=== PATIENT | female | born 1980 | race Caucasian/White ===

== ENCOUNTER 2019-03-11 22:30 | Emergency (ER) | payer OTHER, MEDICAID, SELFPAY ==
[2019-03-11 22:35] VITALS: BP 139/85; PULSE 78; RESP 16; TEMP 37; O2SAT 99; BMI 18.6
--- NOTE | 2019-03-11 22:50 | ED.GENADULT ---
HPI - General Adult General Chief complaint: Urogenital-Female Stated complaint: lower abdominal pain, trouble urinating Time Seen by Provider: 03/11/19 22:34 Source: patient Mode of arrival: Family Vehicle Limitations: no limitations History of Present Illness HPI narrative: 38-year-old female here for evaluation of bilateral lower abdominal pain. States that this has been going on for the past day. She also has had dysuria, urinary frequency, hesitancy and urgency for the past several weeks. No fevers. Has had urinary tract infections in the past. Finished her menstrual cycle 1 week ago. No back pain. No nausea vomiting. had an inguinal hernia abdominal hernia repaired as a child. Related Data Previous Rx's Medication Instructions Recorded ciprofloxacin HCl 250 mg PO BID 3 Days #6 tab 03/11/19 phenazopyridine [Pyridium] 100 mg PO TID PRN #6 tab 03/11/19 Allergies Allergy/AdvReac Type Severity Reaction Status Date / Time sulfamethoxazole Allergy Verified 03/11/19 22:43 [From Bactrim] trimethoprim [From Bactrim] Allergy Verified 03/11/19 22:43 cillians Allergy Uncoded 03/11/19 22:43 Review of Systems Constitutional Constitutional: Denies fever(s) and Denies headache(s) ENT Ears, Nose, Mouth, and Throat: Denies headache(s) Cardiovascular Cardiovascular: Denies chest pain and Denies dyspnea Respiratory Respiratory: Denies dyspnea Gastrointestinal Gastrointestinal: Reports abdominal pain, Denies nausea and Denies vomiting Genitourinary Genitourinary: Reports dysuria, Reports urinary hesitancy, Reports urinary urgency and Denies vaginal discharge Musculoskeletal Musculoskeletal: Denies back pain, Denies myalgias and Denies arthralgias Integumentary/Breasts Skin/Breast: Denies lesions and Denies rash Neurologic Neurologic: Denies behavioral changes and Denies headache(s) Psychiatric Psychiatric: Denies behavioral changes Hematologic/Lymphatic Hematologic/Lymphatic: Denies easy bleeding and Denies easy bruising [facility] Surgical History History of inguinal hernia repair (Acute) History of umbilical hernia repair (Acute) Social History Smoking Status: Current every day smoker Social History Smoking Status: Current every day smoker Exam Initial Vital Signs Initial Vital Signs: Vital Signs Temperature 98.6 F 03/11/19 22:35 Pulse Rate 78 03/11/19 22:35 Respiratory Rate 16 03/11/19 22:35 Blood Pressure 139/85 03/11/19 22:35 Pulse Oximetry 99 03/11/19 22:35 Const General: cooperative, comfortable, well developed and well groomed Orientation: alert, awake and oriented x3 Resp Effort & Inspection: normal respiratory effort Auscultation: clear to auscultation bilaterally Cardio Rate: regular rate Rhythm: regular rhythm GI Inspection: non-distended Palpation: soft, No firm and No tender Other: Lower adnexa tenderness Back/Spine/Pelvis Back: No CVA tenderness Skin Lesions: no lesions Rashes: no rashes Neuro General: alert and awake Cognition: normal cognition Speech: speech normal Extrem General: normal to inspection and capillary refill normal Psych Appearance: grossly normal and well kempt Course Orders Ordered: ED Orders 03/11/19 22:33 Urine Culture Stat Urine Microscopic Stat Discontinued Medications Ciprofloxacin (Cipro) 250 mg PO NOW ONE Stop: 03/11/19 23:00 Last Admin: 03/11/19 23:04 Dose: Not Given Documented by: RJ Ciprofloxacin (Cipro) 250 mg PO NOW ONE Stop: 03/11/19 23:04 Last Admin: 03/11/19 23:07 Dose: 250 mg Documented by: GURPREET Phenazopyridine HCl (Pyridium) 100 mg PO NOW ONE Stop: 03/11/19 23:00 Last Admin: 03/11/19 23:07 Dose: 100 mg Documented by: GURPREET Vital Signs Vital signs: Vital Signs - 8 hr 03/11/19 22:35 Temperature 98.6 F Pulse Rate 78 Respiratory Rate 16 Blood Pressure 139/85 Pulse Oximetry 99 Medical Decision Making Lab Data Lab results reviewed: Yes I reviewed the patient's lab results. Labs: Lab Results 03/11/19 Range/Units 22:33 Urine RBC 1-5/hpf (0-5/HPF) Urine WBC 5-10/hpf H (0-5/HPF) Ur Squamous Epith Cells 1-5 /hpf (0-5/HPF) Urine Bacteria Moderate (10-30) H (None) Ur Culture Indicated? Specimen cultured Point of Care Testing Test Results Negative Urine Dip Bedside Urine Glucose 100 mg/dl Bedside Urine Bilirubin - Negative Bedside Urine Ketone - Negative Urine Specific [place] 1.025 Bedside Urine Occult Blood +/- Bedside Urine pH 6.0 Bedside Urine Protein +/- 15 Bedside Urine Urobilinogen +/- 1mg Bedside Urine Nitrite - Negative Bedside Urine Leukocytes + 70 Esterase Point of care testing: Point of Care Testing Test Results Negative Urine Dip Bedside Urine Glucose 100 mg/dl Bedside Urine Bilirubin - Negative Bedside Urine Ketone - Negative Urine Specific [place] 1.025 Bedside Urine Occult Blood +/- Bedside Urine pH 6.0 Bedside Urine Protein +/- 15 Bedside Urine Urobilinogen +/- 1mg Bedside Urine Nitrite - Negative Bedside Urine Leukocytes + 70 Esterase MDM Narrative Medical decision making narrative: Patient's history and physical exam is consistent with a urinary tract infection. She has no findings that are concerning for pyelonephritis. test is negative. urine culture was pending at the time of discharge the patient was informed of this. She was given a dose of antibiotics here in the emergency department will send home with prescription for the remainder. She is given return precautions and follow-up instructions. She expressed understanding and agreement with plan. Discharge Plan Departure Patient Disposition: Home Clinical Impression: Urinary tract infection Qualifiers: Urinary tract infection type: acute cystitis Hematuria presence: without hematuria Qualified Code(s): N30.00 - Acute cystitis without hematuria Discharge Date/Time: 03/11/19 23:15 Instructions: DI for Urinary Tract Infection (UTI) Activity Restrictions/Additional Instructions: Take the antibiotics as directed. Continue to increase your fluid intake. A urine culture was pending at the time of your discharge. If we need to change antibiotics based on the results of this culture we will call you to do so. Return to the emergency department for any new or worsening symptoms Prescriptions: New ciprofloxacin HCl 250 mg tablet 250 mg PO BID 3 Days Qty: 6 RF: 0 phenazopyridine [Pyridium] 100 mg tablet 100 mg PO TID PRN (Reason: pain) Qty: 6 RF: 0
[2019-03-11 22:52] LABS: Bacteria Urine Moderate (10-30); Culture Indicated Urine Specimen Cultured; RBC Urine 1-5/HPF (0-5/HPF); Squamous Epithelial Cell Urine 1-5 /HPF (0-5/HPF); WBC Urine 5-10/HPF (0-5/HPF)
[2019-03-11] MEDS: CIPROFLOXACIN 500 MG TABLET 250 MG PO (23:07)
[2019-03-11] MEDS: PHENAZOPYRIDINE 100 MG TABLET PO (23:07)
== END 2019-03-11 23:15 | disposition home or self-care (01) ==
PROVIDERS: Emergency Provider Emergency Medicine
DX: N30.00 Acute cystitis without hematuria (principal)
CPT/HCPCS: 81003; 81015; 81025; 87077; 87086; 87186; 99282; 99283

== ENCOUNTER 2019-03-20 21:44 | Emergency (ER) | payer OTHER, MEDICAID, SELFPAY ==
[2019-03-20 22:04] VITALS: BP 115/78; PULSE 90; RESP 17; TEMP 36.5; O2SAT 99; BMI 19.0
--- NOTE | 2019-03-20 22:18 | ED.FEMALEGU ---
HPI - Female Genitourinary General Chief complaint: Urogenital-Female Stated complaint: UTI Time Seen by Provider: 03/20/19 21:56 Source: patient Mode of arrival: Ambulatory Limitations: no limitations History of Present Illness HPI Narrative: Patient is a 38 year old female presenting with urinary frequency. She was seen and evaluated here on 03/11/2019 diagnosed with UTI she was placed on 5 or 6 days of Cipro. Urine did grow E coli sensitive to Cipro. She states that her abdominal cramping has improved however she continues to have urinary frequency only at night. She denies any fevers chills or back pain. No nausea or vomiting. MD Complaint: dysuria Related Data Previous Rx's Medication Instructions Recorded ciprofloxacin HCl 250 mg PO BID 3 Days #6 tab 03/11/19 phenazopyridine [Pyridium] 100 mg PO TID PRN #6 tab 03/11/19 nitrofurantoin monohyd/m-cryst 100 mg PO Q12H 3 Days #6 cap 03/20/19 [Macrobid] Allergies Allergy/AdvReac Type Severity Reaction Status Date / Time sulfamethoxazole Allergy Verified 03/11/19 22:43 [From Bactrim] trimethoprim [From Bactrim] Allergy Verified 03/11/19 22:43 cillians Allergy Uncoded 03/11/19 22:43 Review of Systems Review of Systems ROS Unobtainable: All systems reviewed & are unremarkable except as noted in HPI and below Constitutional Constitutional: Denies chills, Denies fever(s), Denies lethargy and Denies weakness Eyes Eyes: Denies change in vision, Denies eye discharge, Denies irritation and Denies loss of vision ENT Ears, Nose, Mouth, and Throat: Denies change in voice, Denies neck pain and Denies sore throat Cardiovascular Cardiovascular: Denies dyspnea and Denies dyspnea on exertion Respiratory Respiratory: Denies cough, Denies dyspnea, Denies dyspnea on exertion and Denies wheezing Gastrointestinal Gastrointestinal: Denies abdominal pain, Denies change in bowel habits, Denies diarrhea, Denies nausea and Denies vomiting Genitourinary Genitourinary: Reports as per HPI Musculoskeletal Musculoskeletal: Denies neck pain Integumentary/Breasts Skin/Breast: Denies pruritus, Denies erythema, Denies rash and Denies wounds Neurologic Neurologic: Denies loss of vision and Denies weakness Allergic/Immunologic Allergic/Immunologic: Denies wheezing Patient History Social History Smoking Status: Current every day smoker alcohol intake frequency: 0-2 drinks per day Substance Use Type: does not use Exam Initial Vital Signs Initial Vital Signs: Vital Signs Temperature 97.7 F 03/20/19 22:04 Pulse Rate 90 03/20/19 22:04 Respiratory Rate 17 03/20/19 22:04 Blood Pressure 115/78 03/20/19 22:04 Pulse Oximetry 99 03/20/19 22:04 GENERAL: Well-appearing, well-nourished and in no acute distress. HEENT: Head atraumatic,EOMI, pupils reactive, face symmetric, moist mucous membranes CARDIOVASCULAR: Regular rate and rhythm without murmurs, rubs or gallops. RESPIRATORY: Breath sounds equal bilaterally, no wheezes rales or rhonchi. ABDOMEN: Soft, nontender. Normoactive bowel sounds all 4 quadrants. No guarding or rebound. : No flank pain EXTREMITIES: Normal range of motion, no clubbing or edema. Neurovascularly intact NEUROLOGICAL: Alert and oriented x4.Normal gait and speech. SKIN: Warm, dry, no laceration, no petechiae, no rashes or lesions. Course Orders Ordered: ED Orders 03/20/19 21:50 Urine Microscopic Stat Discontinued Medications Nitrofurantoin Macrocrystals (Macrobid 100mg Prepack) 1 bottle MISC SEEINSTR ONE Stop: 03/20/19 22:27 Last Admin: 03/20/19 22:31 Dose: 1 bottle Documented by: CPRUITT Vital Signs Vital signs: Vital Signs - 8 hr 03/20/19 22:04 03/20/19 22:31 Temperature 97.7 F Pulse Rate 90 90 Respiratory Rate 17 16 Blood Pressure 115/78 115/78 Pulse Oximetry 99 99 MDM - Female Genitourinary Lab Data Attestation: I reviewed the patient's lab results. Labs: Lab Results 03/20/19 Range/Units 21:50 Urine RBC 0-1/hpf (0-5/HPF) Urine WBC 0-1/hpf (0-5/HPF) Ur Squamous Epith Cells 5-10 /hpf H (0-5/HPF) Urine Bacteria Moderate (10-30) H (None) Ur Culture Indicated? Cult not indicated Point of Care Testing Test Results Negative Urine Dip Urine Specific [place] 1.015 Bedside Urine Occult Blood +/- Bedside Urine pH 7.5 Bedside Urine Protein +/- 15 Bedside Urine Urobilinogen - Negative Bedside Urine Nitrite - Negative Bedside Urine Leukocytes - Negative Esterase MDM Narrative Medical decision making narrative: Patient is still having urinary urgency and frequency. However at nighttime. Cipro was an appropriate medication for her. Will give her 3 days of Macrobid. I discussed with her this does not help she may require further testing with valuation. Discharge Plan Departure Patient Disposition: Home Clinical Impression: Urinary tract infection Qualifiers: Urinary tract infection type: acute cystitis Hematuria presence: with hematuria Qualified Code(s): N30.01 - Acute cystitis with hematuria Discharge Date/Time: 03/20/19 22:32 Instructions: DI for Urinary Tract Infection (UTI) Activity Restrictions/Additional Instructions: *You have been diagnosed with UTI *What to do: Urine today does not show any gross infection however you still are symptomatic *Continue to take medications as directed Macrobid 100 mg twice a day for 3 days ONLY *Follow up with your primary care provider in 2-3 days *Return to ER if you should have increasing abdominal pain urinary frequency nausea vomiting [or] any new, worsening or concerning symptoms Prescriptions: New nitrofurantoin monohyd/m-cryst [Macrobid] 100 mg capsule 100 mg PO Q12H 3 Days Qty: 6 RF: 0 No Action ciprofloxacin HCl 250 mg tablet 250 mg PO BID 3 Days Qty: 6 RF: 0 phenazopyridine [Pyridium] 100 mg tablet 100 mg PO TID PRN (Reason: pain) Qty: 6 RF: 0 Referrals: [facility] [Outside]
[2019-03-20 22:19] LABS: Bacteria Urine Moderate (10-30); Culture Indicated Urine Cult Not Indicated; RBC Urine 0-1/HPF (0-5/HPF); Squamous Epithelial Cell Urine 5-10 /HPF (0-5/HPF); WBC Urine 0-1/HPF (0-5/HPF)
[2019-03-20 22:31] VITALS: BP 115/78; PULSE 90; RESP 16; O2SAT 99
[2019-03-20] MEDS: NITROFURANTOIN 100MG PREPACK 1 BOTTLE MISC (22:31)
== END 2019-03-20 22:32 | disposition home or self-care (01) ==
PROVIDERS: Emergency Provider Emergency Medicine
DX: N30.01 Acute cystitis with hematuria (principal)
CPT/HCPCS: 81003; 81015; 81025; 99282; 99283

== ENCOUNTER → 2019-05-03 14:22 | Outpatient (CLI) | payer OTHER, MEDICAID, SELFPAY | PROVIDERS: PCP Nurse Practitioner Family; Visit Provider Physician Assistant | DX: N39.0 Urinary tract infection, site not specified (principal) | CPT/HCPCS: 87086 ==

== ENCOUNTER → 2020-01-18 14:29 | Outpatient (CLI) | payer OTHER, MEDICAID, SELFPAY ==
[2020-01-19 14:12] LABS: COVID19 Sendout Not Detected (Not Detected)
== END ==
PROVIDERS: PCP Nurse Practitioner Family; Visit Provider Physician Assistant
DX: Z11.59 Encounter for screening for other viral diseases (principal)
CPT/HCPCS: 87635

== ENCOUNTER → 2022-12-16 18:40 | Outpatient (CLI) | payer MEDICAID, SELFPAY | PROVIDERS: PCP Nurse Practitioner; Visit Provider Physician Assistant | DX: R10.30 Lower abdominal pain, unspecified (principal) | CPT/HCPCS: 81002; 87086 ==

== ENCOUNTER → 2022-12-22 11:02 | Outpatient (CLI) | payer MEDICAID, SELFPAY ==
--- NOTE | 2022-12-22 11:03 | DI.US.S_ITS ---
PROCEDURE: US ABDOMEN LIMITED INDICATIONS: RIGHT GROIN PAIN - EVALUATE FOR RIGHT HERNIA TECHNIQUE: Real-time focused scanning was performed of the abdomen, with image documentation. COMPARISON: None. FINDINGS: Multiple grayscale images of the right inguinal region were acquired over the patient directed area of concern. No focal mass lesion seen. No abnormal fluid collection. No adenopathy. No evidence for inguinal hernias. IMPRESSION: No sonographic abnormality identified in the right inguinal region to explain patient's pain. Dictated by: Larry Malloy M.D. on 12/22/2022 at 14:12 Approved by: Larry Mlaloy M.D. on 12/22/2022 at 14:13
== END ==
PROVIDERS: PCP Nurse Practitioner; Referring Provider Physician Assistant; Visit Provider Physician Assistant
DX: R10.31 Right lower quadrant pain (principal)
CPT/HCPCS: 76705

== ENCOUNTER 2023-01-08 21:10 | Emergency (ER) | payer OTHER, MEDICAID, SELFPAY ==
[2023-01-08 21:22] VITALS: BP 122/77; PULSE 94; RESP 18; TEMP 36.8; O2SAT 96; BMI 27.4
--- NOTE | 2023-01-08 21:34 | DI.RAD.S_ITS ---
PROCEDURE: XR HIP W PEL IF DONE RT 2V INDICATIONS: pain and popping TECHNIQUE: AP pelvis with AP and lateral views of the right hip. COMPARISON: None. FINDINGS: Bones: No fractures or dislocations. Pelvic ring appears intact. No suspicious bony lesions. Soft tissues: The visualized bowel gas pattern is normal. No suspicious soft tissue calcifications. There are bilateral tubular densities projecting over the pelvis. IMPRESSION: 1. No fracture or dislocation. Dictated by: Colten Kent M.D. on 01/09/2023 at 0:27 Approved by: Colten Kent M.D. on 01/09/2023 at 0:30
[2023-01-09 00:49] VITALS: BP 103/67; PULSE 80; RESP 16; O2SAT 99
--- NOTE | 2023-01-09 00:52 | ED_ITS ---
HPI - Extremity Injury (Lower) General Chief Complaint: Extremity Injury, Lower Stated Complaint: Groin pain Time Seen by Provider: 01/09/23 00:52 Source: patient Mode of arrival: Ambulatory History of Present Illness HPI Narrative: Patient healthy 42-year-old female who presents today with ongoing right groin pain. She reports that she some sort of injury and pain a few weeks ago she thought it was related to her sciatica. It eventually went away however at work this week having increasing pain over last couple of days. It is anteriorly along her inguinal ligament. She denies any change in bladder bowel habits. She has no flank pain no CVA tenderness it definitely hurts to bear weight. She is been taking ibuprofen with minimal relief. Related Data Home Medications Medication Instructions Recorded Confirmed amitriptyline 25 mg tablet 25 mg PO BEDTIME 06/13/19 11/09/22 hydroxyzine HCl 25 mg tablet 25 mg PO BEDTIME 06/13/19 11/09/22 tamsulosin 0.4 mg capsule (Flomax) 0.4 mg PO DAILY 06/13/19 11/09/22 Previous Rx's Medication Instructions Recorded cyclobenzaprine 5 mg tablet 5 mg PO TID PRN muscle spasm #15 12/16/22 tabs fluoxetine 20 mg tablet 20 mg PO DAILY #90 tabs 12/23/22 hydrocodone 5 mg-acetaminophen 325 1 tab PO Q6H PRN pain #10 tabs 01/09/23 mg tablet Allergies Allergy/AdvReac Type Severity Reaction Status Date / Time sulfamethoxazole Allergy Verified 11/09/22 13:35 [From Bactrim] trimethoprim [From Bactrim] Allergy Verified 11/09/22 13:35 cillians Allergy Uncoded 11/09/22 13:35 Review of Systems Review of Systems ROS Unobtainable: All systems reviewed & are unremarkable except as noted in HPI and below Patient History Medical History Anxiety Bilateral knee pain Cervical spine disease Chronic back pain COVID-19 Depression Encounter for routine gynecological examination (06/05/22) Encounter for wellness examination in adult (11/07/20) Fractures Headache History of urinary incontinence Interstitial cystitis (2019) Ovarian cyst Psoriasis Seizure disorder (2008) Surgical History Anesthesia History of inguinal hernia repair History of neck surgery (~2010) History of umbilical hernia repair [place] teeth extracted Family History Grandfather History of heart disease Social History Smoking Status: Former smoker Smoking Status: Former smoker alcohol intake frequency: other Substance Use Type: does not use Exam Initial Vital Signs Initial Vital Signs: Vital Signs Temperature 98.2 F 01/08/23 21:22 Pulse Rate 94 H 01/08/23 21:22 Respiratory Rate 18 01/08/23 21:22 Blood Pressure 122/77 01/08/23 21:22 Pulse Oximetry 96 01/08/23 21:22 Oxygen Delivery Method Room Air 01/08/23 21:22 GENERAL: Well-appearing, well-nourished and in no acute distress. CARDIOVASCULAR: peripheral pulses in tact, cap refill <2 sec RESPIRATORY: No respiratory distress, speaks in full sentences without difficulty ABDOMEN: Soft, nontender, no guarding or rebound : No CVA tenderness EXTREMITIES: Normal range of motion, no clubbing or edema. Neurovascularly intact Hip is nontender with flexion extension internal external rotation distal pedal pulse intact. Tender along inguinal ligament no inguinal hernia is appreciated NEUROLOGICAL: Cranial nerves II through XII grossly intact. Normal gait and speech. SKIN: Warm, dry, no petechiae, no rashes or lesions. Course Orders Ordered: ED Orders 01/08/23 21:34 XR hip w pel if done RT 2V Stat Discontinued Medications Hydrocodone Bitart/Acetaminophen (Hydrocodone/Acet 5/325 Prepack) 1 bottle MISC SEEINSTR ONE Stop: 01/09/23 00:59 Last Admin: 01/09/23 01:08 Dose: Not Given Documented By: AP Ketorolac Tromethamine (Ketorolac 30 Mg/Ml Vial) 30 mg IM NOW ONE Stop: 01/09/23 00:59 Last Admin: 01/09/23 01:05 Dose: 30 mg Documented By: AP Vital Signs Vital signs: Vital Signs - 8 hr 01/09/23 00:49 Pulse Rate 80 Respiratory Rate 16 Blood Pressure 103/67 Pulse Oximetry 99 Oxygen Delivery Method Room Air MDM - Extremity Injury (Lower) Imaging Data Extremity x-ray #1: Radiologist's Impression: PROCEDURE:? XR HIP W PEL IF DONE RT 2V ? INDICATIONS:? pain and popping ? TECHNIQUE:? AP pelvis with AP and lateral views of the right hip. ? COMPARISON:? None. ? FINDINGS:? ? Bones:? No fractures or dislocations.? Pelvic ring appears intact.? No suspicious bony lesions.? ? Soft tissues:? The visualized bowel gas pattern is normal.? No suspicious soft tissue calcifications.? There are bilateral tubular densities projecting over the pelvis. ? ? IMPRESSION:? ? 1. No fracture or dislocation. ? ? ? Dictated by: Colten Kent M.D. on 01/09/2023 at 0:27 ? ? MDM Narrative Medical decision making narrative: Patient 42-year-old female presents today with ongoing right groin pain. She previously had pain around December 22 where she was seen evaluated walk-in clinic she would an ultrasound which did not show any abnormality. Continues to have pain I suspect a right inguinal ligament strain. No signs or symptoms of nephrolithiasis no evidence of hernia. 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 Patient is on Suboxone she was previously on multiple pain medications for neck problems. Initially [place] was ordered however not given Discharge Plan Departure Patient Disposition: Home Clinical Impression: Strain of muscle of right groin region Instructions: DI for Groin Strain Activity Restrictions/Additional Instructions: *You have been diagnosed with right groin strain *What to do: At this time rest ice heat as needed. This can take a couple weeks to heal. If still having difficulty with healing may require outpatient MRI or physical therapy. *Continue to take medications as directed Ibuprofen 600 mg every 6 hours if needed for [id number] pain Tylenol 1000 mg every 6 hours if needed for [id number] pain *Follow up with your primary care provider in 2-3 days or call [phone] *Return to ER if you should have increasing pain numbness tingling weakness or any new, worsening or concerning symptoms Prescriptions: New hydrocodone-acetaminophen 5-325 mg tablet 1 tab PO Q6H PRN (Reason: pain) Qty: 10 0RF No Action cyclobenzaprine 5 mg tablet 5 mg PO TID PRN (Reason: muscle spasm) Qty: 15 0RF Rx Instructions: May cause drowsiness fluoxetine 20 mg tablet 20 mg PO DAILY Qty: 90 3RF Rx Instructions: Take 1 tab in the morning daily tamsulosin [Flomax] 0.4 mg capsule 0.4 mg PO DAILY hydroxyzine HCl 25 mg tablet 25 mg PO BEDTIME amitriptyline 25 mg tablet 25 mg PO BEDTIME Referrals: Cyndee Mujica ARNP [Primary Care Provider] - Stand Alone Forms: Patient Portal/API
[2023-01-09] MEDS: KETOROLAC 30 MG/ML VIAL IM (01:05)
== END 2023-01-09 01:20 | disposition home or self-care (01) ==
PROVIDERS: Emergency Provider Emergency Medicine; PCP Nurse Practitioner
DX: S39.011A Strain of muscle, fascia and tendon of abdomen, initial encounter (principal); X58.XXXA Exposure to other specified factors, initial encounter
CPT/HCPCS: 73502; 96372; 99283; J1885

== ENCOUNTER → 2023-02-03 10:29 | Outpatient (CLI) | payer OTHER, MEDICAID, SELFPAY ==
--- NOTE | 2023-02-03 10:30 | DI.CT.S_ITS ---
PROCEDURE: CT PELVIS W CON INDICATIONS: Right side groin pain TECHNIQUE: After the administration of intravenous contrast, 5 mm thick sections acquired from the iliac crests to the symphysis. 5 mm coronal and sagittal reformats were acquired. For radiation dose reduction, the following was used: automated exposure control, adjustment of mA and/or kV according to patient size. COMPARISON: [facility], CR, XR HIP W PEL IF DONE RT 2V, 01/08/2023, 23:05. FINDINGS: Image quality: Excellent. Peritoneum and bowel: Bowel loops demonstrate normal wall thickness and caliber. No free fluid or air. Fecal stasis throughout the colon is seen. Genitourinary: Partially distended urinary bladder shows no gross bladder wall abnormality. No calcified bladder stones. Nodes and vessels: No iliac, pelvic, or inguinal adenopathy by size criteria. Iliac vessels demonstrate normal size and enhancement. Bones: There is subacute appearing fractures involving right superior and inferior pubic ramus with minimal displacement at fracture sites. Oblique fracture involving right sacrum is also seen with minimal displacement at fracture site. No suspicious bony lesions. No evidence of avascular necrosis of femoral head. Miscellaneous: No inguinal hernias. IMPRESSION: 1. Subacute appearing minimally displaced right superior and inferior pubic ramus fractures. 2. Minimally displaced right sacral fracture. 3. No other fracture or dislocation. No evidence of avascular necrosis of femoral heads. 4. No gross pelvic soft tissue abnormalities. No pelvic free fluid or free air. Findings were reported to referring clinician via phone call at noon on 02/03/2023. Dictated by: Sanchez Allison M.D. on 02/03/2023 at 11:48 Approved by: Sanchez Allison M.D. on 02/03/2023 at 12:01
== END ==
PROVIDERS: PCP Nurse Practitioner; Referring Provider Pediatrics; Visit Provider Pediatrics
DX: S32.10XA Unspecified fracture of sacrum, initial encounter for closed fracture (principal); S32.591A Other specified fracture of right pubis, initial encounter for closed fracture; S76.211A Strain of adductor muscle, fascia and tendon of right thigh, initial encounter
CPT/HCPCS: 72193; Q9967

== ENCOUNTER → 2023-09-28 11:23 | Outpatient (CLI) | payer OTHER, MEDICAID, SELFPAY | PROVIDERS: Family Provider Nurse Practitioner; PCP Nurse Practitioner; Visit Provider Physician Assistant Surgical | DX: B99.9 Unspecified infectious disease (principal) | CPT/HCPCS: 87070; 87075; 87077; 87147; 87186; 87205 ==

== ENCOUNTER 2023-10-01 17:56 | Emergency (ER) | payer OTHER, MEDICAID, SELFPAY ==
[2023-10-01 17:58] VITALS: BP 138/77; PULSE 108; RESP 16; TEMP 37.2; O2SAT 97; BMI 27.1
[2023-10-01 18:37] VITALS: PULSE 111; O2SAT 100
--- NOTE | 2023-10-01 19:43 | ED_ITS ---
HPI - Recheck/Abnormal Lab/Rx General Chief Complaint: Recheck/Abnormal Lab/Rx Stated Complaint: poss infection after surgery, recheck lab Time Seen by Provider: 10/01/23 19:43 Source: patient Mode of arrival: Ambulatory History of Present Illness HPI narrative: Patient is a 43-year-old female who had pelvic surgery 08/27/[address] [facility] presented to the walk-in clinic on September 27 for staple removal. Apparently the staple was stuck there was significant drainage. There was a culture of that drainage taken a bad time she was started on doxycycline on the however she has only been taking it once a day to twice a day. The walk-in clinic provider called her today stating that she had a staph infection in if she was worried to come to the ER. She actually reports that she had significant improvement in the redness and drainage she has not having any further drainage. She thinks that she may have been chilled but she does not have any sort of fever. She is able to weightbear. She has an appointment with her surgeon on October 06 coming up next week. She overall was very worried all day about sepsis Related Data Home Medications Medication Instructions Recorded Confirmed buprenorphine 8 mg-naloxone 2 mg 2 tab sublingual DAILY 02/10/23 09/28/23 sublingual tablet amitriptyline 25 mg tablet 50 mg PO BEDTIME 02/15/23 09/28/23 Previous Rx's Medication Instructions Recorded fluoxetine 20 mg tablet 20 mg PO DAILY #90 tabs 12/23/22 gabapentin 300 mg capsule 300 mg PO BEDTIME #90 caps 05/13/23 hydroxyzine HCl 50 mg tablet 100 mg (2 x 50 mg) PO BEDTIME #180 05/13/23 tabs meloxicam 15 mg tablet 15 mg PO DAILY #90 tabs 05/13/23 tamsulosin 0.4 mg capsule (Flomax) 0.8 mg (2 x 0.4 mg) PO DAILY #180 07/23/23 caps buprenorphine 12 mg-naloxone 3 mg 2 film buccal Q24H #60 ea 08/03/23 sublingual film (Suboxone) doxycycline monohydrate 100 mg 100 mg PO BID 10 days #20 caps 09/28/23 capsule doxycycline hyclate 100 mg capsule 100 mg PO BID #4 caps 10/01/23 Allergies Allergy/AdvReac Type Severity Reaction Status Date / Time amoxicillin Allergy Verified 10/01/23 18:14 Penicillins Allergy Verified 10/01/23 18:14 sulfamethoxazole Allergy Verified 09/28/23 11:15 [From Bactrim] trimethoprim [From Bactrim] Allergy Verified 09/28/23 11:15 cillians Allergy Uncoded 09/28/23 11:15 Patient History Medical History Closed minimally displaced zone III fracture of sacrum with delayed healing Bilateral knee pain COVID-19 Depression Anxiety Encounter for routine gynecological examination (06/05/22) Encounter for wellness examination in adult (11/07/20) Interstitial cystitis (2019) Seizure disorder (2008) Psoriasis Headache Fractures Chronic back pain Cervical spine disease Ovarian cyst History of urinary incontinence Surgical History [place] teeth extracted Anesthesia History of neck surgery (~2010) History of inguinal hernia repair History of umbilical hernia repair Family History Grandfather History of heart disease Social History Smoking Status: Former smoker Smoking Status: Former smoker alcohol intake frequency: other Substance Use Type: does not use Exam Initial Vital Signs Initial Vital Signs: Vital Signs Temperature 98.9 F 10/01/23 17:58 Pulse Rate 108 H 10/01/23 17:58 Respiratory Rate 16 10/01/23 17:58 Blood Pressure 138/77 10/01/23 17:58 Pulse Oximetry 97 10/01/23 17:58 Oxygen Delivery Method Room Air 10/01/23 17:58 GENERAL: Well-appearing, well-nourished and in no acute distress. CARDIOVASCULAR: peripheral pulses in tact, cap refill <2 sec RESPIRATORY: No respiratory distress, speaks in full sentences without difficulty EXTREMITIES: Normal range of motion, no clubbing or edema. Neurovascularly intact able to ambulate and bear weight without any sort of difficulty NEUROLOGICAL: Cranial nerves II through XII grossly intact. Normal gait and speech. SKIN: Right postop site healing wounds no gross drainage no surrounding erythema nontender to touch overall scabbing over dried healing wounds Course Vital Signs Vital signs: Vital Signs - 8 hr 10/01/23 17:58 10/01/23 18:37 10/01/23 20:00 Temperature 98.9 F Pulse Rate 108 H 111 H 112 H Respiratory Rate 16 Blood Pressure 138/77 Pulse Oximetry 97 100 100 Oxygen Delivery Method Room Air Room Air 10/01/23 20:01 10/01/23 20:01 Temperature 98.9 F Pulse Rate 76 Respiratory Rate 20 Blood Pressure 128/77 Pulse Oximetry 100 Oxygen Delivery Method Room Air MDM - Recheck/Abnormal Lab/Rx MDM Narrative Medical decision making narrative: Patient 43-year-old female postop pelvic surgery about 1 month on August 26 presents today with staph infection after retained staple. The staple has been removed overall significant improvement just from removal of the staple. She has no drainage erythema. She is ambulatory she is afebrile I have no concern for septic joint. This was pansensitive she has been on doxycycline but taking inappropriately for the last 2 days although she reports she took it twice a day today. She has a close follow-up appointment with her orthopedic surgeon. At this time I do not feel like she needs any further workup this seems to be superficial cellulitis like infection I do not suspect a deep infection and actually appears to be healing. We discussed warning signs and when to return to the ED. Discharge Plan Departure Patient Disposition: Home Clinical Impression: Cellulitis Instructions: Cellulitis Activity Restrictions/Additional Instructions: *You have been diagnosed with cellulitis *What to do: At this time overall significant improvement in the skin. I do recommend you take doxycycline twice a day as recommend. *Continue to take medications as directed Doxycycline 100 mg twice a day for total of 10 days *Follow up with your primary care provider in 2-3 days or call [phone] Follow-up with your orthopedic surgeon next week as scheduled *Return to ER if you should have increasing redness pain inability to walk fever greater than 100 or any new, worsening or concerning symptoms Prescriptions: New doxycycline hyclate 100 mg capsule 100 mg PO BID Qty: 4 0RF No Action doxycycline monohydrate 100 mg capsule 100 mg PO BID 10 Days Qty: 20 0RF fluoxetine 20 mg tablet 20 mg PO DAILY Qty: 90 3RF Rx Instructions: Take 1 tab in the morning daily buprenorphine-naloxone 8-2 mg tablet, sublingual 2 tab sublingual DAILY Hold Instructions: on higher dosing routinely Patient Comments: morning and noon. On hold while taking hydrocodone 02/10/23 tamsulosin [Flomax] 0.4 mg capsule 0.8 mg PO DAILY Qty: 180 3RF buprenorphine-naloxone [Suboxone] 12-3 mg film 2 film buccal Q24H Qty: 60 2RF Rx Instructions: place 2 strips/tab under (each) side of tongue amitriptyline 25 mg tablet 50 mg PO BEDTIME gabapentin 300 mg capsule 300 mg PO BEDTIME Qty: 90 3RF Rx Instructions: Take 1 cap at bedtime daily meloxicam 15 mg tablet 15 mg PO DAILY Qty: 90 3RF Rx Instructions: Take 1 tab daily with food for pain hydroxyzine HCl 50 mg tablet 100 mg PO BEDTIME Qty: 180 3RF Referrals: Cyndee Mujica ARNP [Primary Care Provider] - Stand Alone Forms: Patient Portal/API
[2023-10-01 20:00] VITALS: PULSE 112; O2SAT 100
[2023-10-01 20:01] VITALS: BP 128/77; PULSE 76; RESP 20; TEMP 37.2; O2SAT 100
== END 2023-10-01 20:11 | disposition home or self-care (01) ==
PROVIDERS: Emergency Provider Emergency Medicine; Family Provider Nurse Practitioner; PCP Nurse Practitioner
DX: N73.2 Unspecified parametritis and pelvic cellulitis (principal)
CPT/HCPCS: 99281; 99282

== ENCOUNTER 2024-03-23 10:32 | Inpatient (IN) | payer OTHER, MEDICAID, SELFPAY ==
[2024-03-23] VITALS (50 sets, daily range): BP systolic 79–151; BP diastolic 46–74; PULSE 93–130; RESP 0–48; TEMP 36.1–37.3; O2SAT 73–99; BMI 26.5
--- NOTE | 2024-03-23 10:52 | ED_ITS ---
HPI - General Adult General Chief complaint: Shortness of Breath/Dyspnea Stated complaint: Might have Covid. Time Seen by Provider: 03/23/24 10:47 Source: patient Mode of arrival: Ambulatory History of Present Illness HPI narrative: 43-year-old woman with a history of depression presents with 2 weeks of upper respiratory symptoms and today significant dyspnea with oxygen saturations at 80% on room air as she presents through triage. She notes that she had stopped smoking and resumed using nicotine vapes has not been able to do this since she became ill. She describes mild upper respiratory symptoms about 2 weeks ago with progressive worsening through that time. She does have a cough that is minimally productive. Significant shortness of breath without obvious wheezing no prior history of asthma. She has not complaining of chest pain. No lower extremity edema no abdominal pain, nausea or vomiting. She has not noticed significant fevers Related Data Home Medications Medication Instructions Recorded Confirmed amitriptyline 25 mg tablet 25 mg PO BEDTIME 01/20/24 03/10/24 Previous Rx's Medication Instructions Recorded tamsulosin 0.4 mg capsule (Flomax) 0.8 mg (2 x 0.4 mg) PO DAILY #180 07/23/23 caps fluoxetine 40 mg capsule 40 mg PO QAM #90 caps 12/06/23 gabapentin 300 mg capsule 300 mg PO BEDTIME #90 caps 12/10/23 buprenorphine 12 mg-naloxone 3 mg See Rx Instructions .Route 02/03/24 sublingual film (Suboxone) .COMPLEX #60 film methylphenidate HCl 27 mg 27 mg PO DAILY #30 tabs 03/10/24 tablet,extended release 24 hr (Concerta) Allergies Allergy/AdvReac Type Severity Reaction Status Date / Time amoxicillin Allergy Verified 03/23/24 10:34 Penicillins Allergy Verified 03/23/24 10:34 sulfamethoxazole Allergy Verified 03/23/24 10:34 [From Bactrim] trimethoprim [From Bactrim] Allergy Verified 03/23/24 10:34 cillians Allergy Uncoded 03/10/24 13:26 Review of Systems Review of Systems Narrative: Pertinent positive and negative findings as per HPI Patient History Medical History ADD (attention deficit disorder) Closed minimally displaced zone III fracture of sacrum with delayed healing Bilateral knee pain COVID-19 Depression Anxiety Encounter for routine gynecological examination (06/05/22) Encounter for wellness examination in adult (11/07/20) Interstitial cystitis (2019) Seizure disorder (2009) Psoriasis Headache Fractures Chronic back pain Cervical spine disease Ovarian cyst History of urinary incontinence Surgical History [place] teeth extracted Anesthesia History of neck surgery (~2010) History of inguinal hernia repair History of umbilical hernia repair Family History Grandfather History of heart disease Social History household members: spouse and children Smoking Status: Former smoker alcohol intake: former Smoking Status: Former smoker alcohol intake frequency: other Substance Use Type: does not use Exam Initial Vital Signs Initial Vital Signs: Vital Signs Temperature 98.3 F 03/23/24 10:34 Pulse Rate 124 H 03/23/24 10:34 Respiratory Rate 18 03/23/24 10:34 Blood Pressure 124/64 03/23/24 10:34 Pulse Oximetry 80 L 03/23/24 10:34 Oxygen Delivery Method Room Air 03/23/24 10:34 General: Acute respiratory distress, pale, tachypneic, tachycardic able to speak in 1-2 word sentences HEENT: dry mucous membranes, normal sclera with reactive pupils, Neck: No JVD, supple Respiratory: Lungs with scattered wheeze in all lung johnson, rhonchi throughout mid and lower right lung johnson Cardiac: Tachycardic with no murmurs Abdomen: Soft, nontender, good bowel tones, no flank pain Skin: Pale but not diaphoretic Neurologic: Grossly neurologically intact with no obvious asymmetries or abnormalities Extremities: No trauma, well perfused, no edema Psych: Cooperative, appropriate insight and affect Course Orders Ordered: ED Orders 03/23/24 10:54 Respiratory Panel (Film Array) Stat 03/23/24 10:55 VBG [Venous Blood Gas] STAT 03/23/24 10:56 XR chest 1V Stat Urinalysis and Microscopic Stat EKG-12 Lead Stat 03/23/24 11:13 Blood Culture Stat Complete Blood Count AUTO DIFF Stat Comprehensive Metabolic Panel Stat D Dimer Stat Lactate (Lactic Acid) Stat Magnesium Stat NT-proBNP (BNP-Adult 18+) Stat Procalcitonin Stat Troponin I Stat 03/23/24 11:17 Venous Blood Gas Routine 03/23/24 11:25 High flow/High humidity nasal NOW 03/23/24 11:38 CT angio chest PE protocol Stat Acetaminophen (Acetaminophen 325 Mg Tablet) 650 mg PO Q6H PRN PRN Reason: Fever/Mild Pain (1-3) Albuterol (Albuterol 2.5 Mg/3 Ml Neb (Adult)) 2.5 mg INH [id number] PRN PRN Reason: Shortness Of Breath Albuterol/Ipratropium (Albuterol/Ipratropium 3 Ml Ampul) 3 ml INH [id number] CELY Enoxaparin Sodium (Enoxaparin 40 Mg/0.4 Ml Syringe) 40 mg SUBCUT DAILY CELY Hydromorphone HCl (Hydromorphone 0.5 Mg Inj) 0.5 mg IV Q2H PRN PRN Reason: Pain, Severe (7-10) Dextrose/Sodium Chloride (Dextrose 5%-0.45% Ns) 1,000 mls @ 50 mls/hr IV CONT CELY Azithromycin 500 mg/ Dextrose 250 mls @ 250 mls/hr IV Q24H CELY Fentanyl 1,000 mcg/ Dextrose 250 mls @ 11.51 mls/hr IV TITRATE CELY; Protocol Naloxone HCl (Naloxone 0.4 Mg/Ml Vial) 0.2 mg IV Q2MIN PRN PRN Reason: Opiate Reversal Stored In Pharmacy 1 each PO PRN PRN PRN Reason: PROTOCOL Discontinued Medications Albuterol/Ipratropium (Albuterol/Ipratropium 3 Ml Ampul) 3 ml INH NOW ONE Stop: 03/23/24 10:56 Last Admin: 03/23/24 11:15 Dose: 3 ml Documented By: MAGGIE Hydromorphone HCl (Hydromorphone 1 Mg Inj) 0.5 mg IV NOW ONE Stop: 03/23/24 13:59 Last Admin: 03/23/24 14:08 Dose: 0.5 mg Documented By: MIRIAN Sodium Chloride (Normal Saline 0.9%) 1,000 mls @ 1,000 mls/hr IV BOLUS ONE Stop: 03/23/24 11:54 Last Infusion: 03/23/24 12:57 Dose: Infused Documented By: Admin: 03/23/24 11:49 Dose: 1,000 mls/hr Documented By: MIRIAN Cefepime HCl 2 gm/ Sodium (Chloride) 100 mls @ 200 mls/hr IV NOW ONE Stop: 03/23/24 11:37 Last Infusion: 03/23/24 12:57 Dose: Infused Documented By: Admin: 03/23/24 11:49 Dose: 200 mls/hr Documented By: MIRIAN Vancomycin HCl/Dextrose (Vancomycin) 1,500 mg in 300 mls @ 200 mls/hr IV NOW ONE Stop: 03/23/24 13:14 Last Infusion: 03/23/24 14:37 Dose: Infused Documented By: Admin: 03/23/24 12:57 Dose: 200 mls/hr Documented By: MIRIAN Sodium Chloride (Normal Saline 0.9%) 1,000 mls @ 1,000 mls/hr IV BOLUS ONE Stop: 03/23/24 14:50 Last Admin: 03/23/24 15:02 Dose: Not Given Documented By: Sodium Chloride (Normal Saline 0.9%) 1,000 mls @ 1,000 mls/hr IV BOLUS ONE Stop: 03/23/24 14:50 Last Admin: 03/23/24 15:03 Dose: Not Given Documented By: Non-Formulary Medication (Buprenorphine-Naloxone [Suboxone]) 0 film .ROUTE .COMPLEX CELY Pantoprazole Sodium (Pantoprazole 40 Mg Vial) 40 mg IV DAILY CELY Vital Signs Vital signs: Vital Signs - 8 hr 03/23/24 10:34 03/23/24 10:45 03/23/24 10:45 Temperature 98.3 F Pulse Rate 124 H 130 H Respiratory Rate 18 Blood Pressure 124/64 128/69 Pulse Oximetry 80 L 73 L Oxygen Delivery Method Room Air Oxygen Flow Rate 03/23/24 11:00 03/23/24 11:01 03/23/24 11:01 Temperature Pulse Rate 118 H 117 H Respiratory Rate 29 H 28 H Blood Pressure 105/59 L Pulse Oximetry 91 92 Oxygen Delivery Method Nasal Cannula Oximask Oxygen Flow Rate 2 12 03/23/24 11:15 03/23/24 11:25 03/23/24 11:30 Temperature Pulse Rate 116 H 117 H 117 H Respiratory Rate 28 H 36 H 32 H Blood Pressure Pulse Oximetry 92 93 92 Oxygen Delivery Method Oximask Heated High Flow Oxygen Flow Rate 12 40 03/23/24 12:17 03/23/24 12:30 03/23/24 12:46 Temperature Pulse Rate 111 H 108 H 108 H Respiratory Rate 25 H 17 30 H Blood Pressure Pulse Oximetry 94 90 L Oxygen Delivery Method Heated High Flow Oxygen Flow Rate 40 40 03/23/24 12:46 03/23/24 13:00 03/23/24 13:00 Temperature Pulse Rate 108 H Respiratory Rate 20 Blood Pressure 101/53 L 98/59 L Pulse Oximetry 91 Oxygen Delivery Method Oxygen Flow Rate 40 03/23/24 13:30 03/23/24 13:34 03/23/24 13:34 Temperature Pulse Rate 106 H 108 H Respiratory Rate 37 H 30 H Blood Pressure 97/60 Pulse Oximetry 91 88 L Oxygen Delivery Method Heated High Flow Heated High Flow Oxygen Flow Rate 40 40 Medical Decision Making Lab Data 03/23/24 11:13 03/23/24 11:13 Labs: Lab Results 03/23/24 03/23/24 03/23/24 Range/Units 10:54 11:13 11:17 WBC 7.5 (4.5-11.0) X10^3/uL RBC 3.50 L (4.0-5.2) X10^6/uL Hgb 10.7 L (12.0-16.0) g/dL Hct 31.4 L (36-46) % MCV 89.8 (80-100) fL MCH 30.6 (26-34) PG MCHC 34.0 (30-36) % RDW 14.7 (11.6-14.8) % Plt Count 321 (150-400) X10^3/uL Neut % (Auto) Not Reportable Lymph % (Auto) Not Reportable [place] % (Auto) Not Reportable Eos % (Auto) Not Reportable Baso % (Auto) Not Reportable Lymph # (Auto) Not Reportable [place] # (Auto) Not Reportable Baso # (Auto) Not Reportable Total Counted 100 Seg Neutrophils % 80.0 H (38-70) % Band Neutrophils % 14.0 H (3-7) % Lymphocytes % (Manual) 1.0 L (25-45) % Monocytes % (Manual) 5.0 (2-11) % Neutrophils # (Manual) 7050 H (6932-6321) /uL RBC Morphology Normal morphology D-Dimer 3657 H (<500) ng/ml VBG pH 7.49 H (7.33-7.43) VBG pCO2 28.8 L (45-50) mmHg VBG pO2 60 H (35-45) mmHg VBG HCO3 22 L (24-28) mmol/L VBG Total CO2 22 L (24-29) mmol/L VBG O2 Saturation 93 H (70-75) % VBG Base Excess -0.5 L (0-4) mmol/L FiO2 % 70 % Sodium 134 L (137-145) mmol/L Potassium 3.2 L (3.4-5.1) mmol/L Chloride 101 (98-107) mmol/L Carbon Dioxide 23 (22-32) mmol/L BUN 20 H (7-17) mg/dL Creatinine 0.62 (0.52-1.04) mg/dL Estimated GFR > 60 (>60) mL/min BUN/Creatinine Ratio 32.3 H (6-22) Glucose 98 (70-100) mg/dL Lactate 2.4 H (0.7-2.1) mmol/L Calcium 8.9 (8.4-10.2) mg/dL Magnesium 1.8 (1.6-2.3) mg/dL Total Bilirubin 0.8 (0.2-1.3) mg/dL AST 46 H (14-36) IU/L ALT 41 H (<35) IU/L Alkaline Phosphatase 126 (38-126) U/L Troponin I < 0.012 (0.01-0.034) ng/mL NT-Pro-B Natriuret Pep 1350 H (<125) pg/mL Total Protein 6.5 (6.3-8.2) g/dL Albumin 3.3 L (3.5-5.0) g/dL Globulin 3.2 (1.7-4.1) g/dL Albumin/Globulin Ratio 1.0 (1.0-2.8) Procalcitonin 2.14 H (<0.5) ng/mL Chlamy pneumoniae PCR Not detected (Not Detect) Adenovirus (PCR) Not detected (Not Detect) B. pertussis DNA (PCR) Not detected (Not Detect) B.parapertussis DNA PCR Not detected (Not Detecte) Coronavirus OC43 (PCR) Not detected (Not Detect) Coronavirus HKU1 (PCR) Not detected (Not Detect) Coronavirus 229E (PCR) Not detected (Not Detect) SARS-CoV-2 (PCR) Not detected (Not Detecte) Coronavirus NL63 (PCR) Not detected (Not Detect) Human Metapneumovir PCR Not detected (Not Detect) Influenza Type A (PCR) Not detected (Not Detect) Influenza Type B (PCR) Not detected (Not Detect) M. pneumoniae (PCR) Not detected (Not Detect) Parainfluenza 1 (PCR) Not detected (Not Detect) Parainfluenza 2 (PCR) Not detected (Not Detect) Parainfluenza 3 (PCR) Not detected (Not Detect) Parainfluenza 4 (PCR) Not detected (Not Detect) RSV (PCR) Not detected (Not Detect) Entero/Rhino (PCR) Not detected (Not Detect) 03/23/24 Range/Units 13:20 WBC (4.5-11.0) X10^3/uL RBC (4.0-5.2) X10^6/uL Hgb (12.0-16.0) g/dL Hct (36-46) % MCV (80-100) fL MCH (26-34) PG MCHC (30-36) % RDW (11.6-14.8) % Plt Count (150-400) X10^3/uL Neut % (Auto) Lymph % (Auto) [place] % (Auto) Eos % (Auto) Baso % (Auto) Lymph # (Auto) [place] # (Auto) Baso # (Auto) Total Counted Seg Neutrophils % (38-70) % Band Neutrophils % (3-7) % Lymphocytes % (Manual) (25-45) % Monocytes % (Manual) (2-11) % Neutrophils # (Manual) (6167-3824) /uL RBC Morphology D-Dimer (<500) ng/ml VBG pH (7.33-7.43) VBG pCO2 (45-50) mmHg VBG pO2 (35-45) mmHg VBG HCO3 (24-28) mmol/L VBG Total CO2 (24-29) mmol/L VBG O2 Saturation (70-75) % VBG Base Excess (0-4) mmol/L FiO2 % % Sodium (137-145) mmol/L Potassium (3.4-5.1) mmol/L Chloride (98-107) mmol/L Carbon Dioxide (22-32) mmol/L BUN (7-17) mg/dL Creatinine (0.52-1.04) mg/dL Estimated GFR (>60) mL/min BUN/Creatinine Ratio (6-22) Glucose (70-100) mg/dL Lactate 2.5 H (0.7-2.1) mmol/L Calcium (8.4-10.2) mg/dL Magnesium (1.6-2.3) mg/dL Total Bilirubin (0.2-1.3) mg/dL AST (14-36) IU/L ALT (<35) IU/L Alkaline Phosphatase (38-126) U/L Troponin I (0.01-0.034) ng/mL NT-Pro-B Natriuret Pep (<125) pg/mL Total Protein (6.3-8.2) g/dL Albumin (3.5-5.0) g/dL Globulin (1.7-4.1) g/dL Albumin/Globulin Ratio (1.0-2.8) Procalcitonin (<0.5) ng/mL Chlamy pneumoniae PCR (Not Detect) Adenovirus (PCR) (Not Detect) B. pertussis DNA (PCR) (Not Detect) B.parapertussis DNA PCR (Not Detecte) Coronavirus OC43 (PCR) (Not Detect) Coronavirus HKU1 (PCR) (Not Detect) Coronavirus 229E (PCR) (Not Detect) SARS-CoV-2 (PCR) (Not Detecte) Coronavirus NL63 (PCR) (Not Detect) Human Metapneumovir PCR (Not Detect) Influenza Type A (PCR) (Not Detect) Influenza Type B (PCR) (Not Detect) M. pneumoniae (PCR) (Not Detect) Parainfluenza 1 (PCR) (Not Detect) Parainfluenza 2 (PCR) (Not Detect) Parainfluenza 3 (PCR) (Not Detect) Parainfluenza 4 (PCR) (Not Detect) RSV (PCR) (Not Detect) Entero/Rhino (PCR) (Not Detect) MDM Narrative Medical decision making narrative: CC: Acute dyspnea with oxygen saturations 80% on room air Complicating co-morbidities: Trying to stop smoking. Significant trauma in August of this year with transfer to [facility] and pelvic surgery. Did have MRSA infection following that but has since resolved. Data collected from: patient Medical records reviewed: Primary care notes from March 10 reviewed Differential considered: Secondary bacterial pneumonia after a viral syndrome, pulmonary embolism, pneumothorax, acute coronary syndrome Exam documented above, pertinent findings include: Significant respiratory distress responding nicely to oxygen. Tachypneic, tachycardic, minor wheeze significant rhonchi on the right side. Abdomen is benign, no lower extremity edema Lab Test results independently reviewed as above. Pertinent findings: White blood cell count is not elevated at 7.5. Mild anemia with hemoglobin of 10.7 D-dimer significantly elevated at 3 657 Venous blood gas shows a pH of 7.49 and a CO2 of 29 Chemistries are notable for mild hypokalemia at 3.2. Normal creatinine. Lactic elevated is minimally elevated at 2.4 AST and ALT are minimally elevated BNP is elevated at 1 350 Procalcitonin is significantly elevated at 2.14 Urine does not look like it is infected Serology panel is negative for respiratory viruses Independently reviewed EKG: Sinus tachycardia at 110 No acute ischemic changes Imaging studies independently reviewed: Chest x-ray shows bilateral pneumonia right greater than left CT scan shows no pulmonary emboli, advanced bilateral pneumonia Treatments: Fluids, cefepime and vancomycin for antibiotics She was initially paced on nasal cannula, increased to Ventimask increased to high-flow oxygen, is currently at 40 liters/minutes 60% oxygen and maintain saturations in the low 90s Re-evaluations: Reviewed need for admission, diagnosis. Patient is noting fairly significant pleuritic chest pain that is limiting her ability to breathe. We will see if appropriate pain control may help with better overall aeration. Discussion: 43-year-old woman with bilateral pneumonia no evidence of persisting viral etiology. She does not have significant leukocytosis, minimally elevated lactic acid that has actually increased after initial L of fluid. Will continue with fluid resuscitation. She was started on cefepime and vancomycin. Blood pressure is trending down slightly was initially 124/64 now is 98/59 we will re-evaluate after fluid bolus. CT scan does not suggest pulmonary embolism, she does have mildly elevated BNP, troponin is unremarkable. Patient will need to be admitted for bilateral bacterial pneumonia, sepsis, hypoxic respiratory failure, mild hypokalemia. Care is reviewed with admitting hospitalist, Dr. Tuttle Additional Information: Severe Sepsis Criteria [ x ] bacterial source of infection suspected and documented [ ] 2 SIRS Criteria met [ x] HR >90 [ x ] RR >20 [ ] fever or hypothermia [ ] leukocytosis/leukopenia/bandemia [ ] Evidence of at least 1 organ system dysfunction [ x ] Lactate > 2 [ ] BP < 90 or MAP <65, >40mm decrease from normal baseline [ ] Creat > 2.0 [ ] T. Bili > 2.0 [ ] platelet count < 100k [ ] altered mental status [ ] mechanical ventilation [ ] provider documentation of severe sepsis Severe Sepsis Determination. the patient has been screened and [ ] DOES meet criteria for severe sepsis [x ] DOES NOT meet criteria for severe sepsis Goal directed treatment Within 3 hours [x ] blood cx drawn prior to abx [ x ] broad spectrum abx started [ x ] lactic acid level checked [ x] lactic redrawn within 6 hours if >2.0 Septic Shock Criteria [ ] lactic > 4 at any time [ ] SBP ,90 or MAP , 65 [ ] documentation of septic shock Time Septic Shock diagnosed: [ ] Septic Shock Determination. the patient has been screened and [ ] DOES meet criteria for septic shock [x ] DOES NOT meet criteria for septic shock Goal directed therapy within 3 hours of septic shock or initial hypotension [ ] 30ml/kg fluid [ ] ABW used [ ] IBW (33.6) used due to BMI > 30 [ ] patient or advocate declining fluid administration after shared decision making conversation Clinical reason for NOT initiating fluid bolus: Critical Care Time Critical Care Time Critical Care Time: Yes Total Critical Care Time: 34 Attestation: Critical care time is separate from other billable procedures. There is a high probability of a significant, sudden or life-threatening deterioration that requires my full and direct attention, intervention and personal management. This critical care time includes consultation with family and other consulting doctors, review of records, and interpretation of data from labs, EKGs and imaging as well as managements of hypoxic respiratory failure with bilateral pneumonia and developing sepsis Discharge Plan Departure Patient Disposition: Admitted As Inpatient Clinical Impression: Acute hypoxic respiratory failure, Acute hypokalemia Community acquired pneumonia Qualifiers: Laterality: unspecified laterality Qualified Code(s): J18.9 - Pneumonia, unspecified organism Admit Date/Time: 03/23/24 13:54 Admit Provider: Rashel Tuttle V
--- NOTE | 2024-03-23 10:56 | DI.RAD.S_ITS ---
PROCEDURE: XR CHEST 1V INDICATIONS: cough TECHNIQUE: One view of the chest was acquired. COMPARISON: None. FINDINGS: Surgical changes and devices: None. Lungs and pleura: Lungs are normal with a near severe pattern of bilateral pneumonia, right greater than left.. No pleural effusions or pneumothorax. Mediastinum: Mediastinal contours appear normal. Heart size is normal. Bones and chest wall: No suspicious bony lesions. Overlying soft tissues appear unremarkable. IMPRESSION: Prominent right greater than left consolidative pneumonia pattern. Dictated by: Karthikeyan Atkins M.D. on 03/23/2024 at 11:57 Approved by: Karthikeyan Atkins M.D. on 03/23/2024 at 11:57
--- NOTE | 2024-03-23 11:11 | EKG_ITS ---
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
[2024-03-23] MEDS: ALBUTEROL/IPRATROPIUM 3 ML AMPUL INH ×3 (11:15→22:56)
[2024-03-23 11:20] LABS: Base Excess VBG -0.5 mmol/L (0-4); HCO3 VBG 22 mmol/L (24-28); Oxygen Saturation VBG 93 % (70-75); PCO2 VBG 28.8 mmHg (45-50); PO2 VBG 60 mmHg (35-45); Total CO2 VBG 22 mmol/L (24-29); pH VBG 7.49 (7.33-7.43)
[2024-03-23 11:28] LABS: Add Manual Diff / Slide Review YES; Hematocrit 31.4 % (36-46); Hemoglobin 10.7 g/dL (12.0-16.0); Mean Corpuscular Hemoglobin 30.6 PG (26-34); Mean Corpuscular Volume 89.8 fL (80-100); Platelet Count 321 X10^3/uL (150-400); Red Cell Distribution Width 14.7 % (11.6-14.8); White Blood Cell Count 7.5 X10^3/uL (4.5-11.0)
--- NOTE | 2024-03-23 11:31 | PC.NURSE ---
Pt feeling better with oxygen on. Pt placed on oxymask shortly after arrival. Following VBG, Dr Hernandez ordered RT to place on heated high flow. Pt placed on 60% 4L high flow.
--- NOTE | 2024-03-23 11:38 | DI.CT.S_ITS ---
PROCEDURE: CT ANGIO CHEST PE PROTOCOL INDICATIONS: respiratory distress TECHNIQUE: After the administration of intravenous contrast, 2 mm thick sections acquired from the pulmonary apices to the posterior costophrenic angles. 3-dimensional maximum intensity projection (MIP) coronal and sagittal reformats were then acquired through the thorax. For radiation dose reduction, the following was used: automated exposure control, adjustment of mA and/or kV according to patient size. COMPARISON: [facility], CR, XR CHEST 1V, 03/23/2024, 11:22. FINDINGS: Image quality: Diagnostic. Pulmonary arteries: Pulmonary arteries are normal in size, and demonstrate no intraluminal filling defects to suggest central pulmonary embolism. Lower Neck: No enlarged lymph nodes. Thyroid: No thyroid nodules which require sonographic follow up, per consensus guidelines. Axillae: No enlarged lymph nodes. Chest Wall: Unremarkable. Bones: Unremarkable. Lungs and Pleura: There is extensive bilateral pneumonia with dense consolidation much of the right upper lobe and right middle lobe and relatively extensive bibasilar lower lobe consolidation. There is relative sparing of the left upper lobe. Heart: Heart size is normal. No pericardial effusion. Thoracic Vessels: No aortic aneurysm. Mediastinum and Angela: No enlarged lymph nodes. Esophagus: No wall thickening. No hiatal hernia. Upper Abdomen: Visualized upper abdomen solid organs and bowel loops appear normal. IMPRESSION: 1. No pulmonary emboli. 2. Advanced bilateral pneumonia. Dictated by: Richard Valencia M.D. on 03/23/2024 at 12:57 Approved by: Richard Valencia M.D. on 03/23/2024 at 12:59
[2024-03-23 11:41] LABS: Neutrophils Absolute Manual 7050 /uL (3000-5900); RBC Morphology Normal Morphology; Total Cells Counted 100
[2024-03-23 11:43] LABS: Alanine Aminotransferase 41 IU/L (<35); Albumin 3.3 g/dL (3.5-5.0); Alkaline Phosphatase 126 U/L (38-126); Aspartate Aminotransferase 46 IU/L (14-36); BUN Creatinine Ratio 32.3 (6-22); Bilirubin Total 0.8 mg/dL (0.2-1.3); Blood Urea Nitrogen 20 mg/dL (7-17); Calcium 8.9 mg/dL (8.4-10.2); Carbon Dioxide 23 mmol/L (22-32); Chloride 101 mmol/L (98-107); Estimated Glomerular Filt Rate > 60 mL/min (>60); Globulin 3.2 g/dL (1.7-4.1); Glucose 98 mg/dL (70-100); HEMOLYSIS < 15 (0-50); Lactate (Lactic Acid) 2.4 mmol/L (0.7-2.1); Magnesium 1.8 mg/dL (1.6-2.3); Potassium 3.2 mmol/L (3.4-5.1); Sodium 134 mmol/L (137-145); Total Protein 6.5 g/dL (6.3-8.2)
[2024-03-23 11:45] LABS: D Dimer 3657 ng/ml (<500)
[2024-03-23] MEDS: SODIUM CHLORIDE 0.9% 1,000 ML 1000 ML IV (11:49)
[2024-03-23] MEDS: CEFEPIME 2 GM in SODIUM CHLORIDE 0.9% 100 ML IV (11:49)
[2024-03-23 11:52] LABS: Adenovirus Not Detected (Not Detect); B. parapertussis Not Detected (Not Detecte); Bordetella pertussis Not Detected (Not Detect); Chlamydophila pneumoniae Not Detected (Not Detect); Coronavirus 229E Not Detected (Not Detect); Coronavirus HKU1 Not Detected (Not Detect); Coronavirus NL 63 Not Detected (Not Detect); Coronavirus OC43 Not Detected (Not Detect); Human Metapneumovirus Not Detected (Not Detect); Human Rhinovirus/Enterovirus Not Detected (Not Detect); Influenza A Not Detected (Not Detect); Influenza B Not Detected (Not Detect); Mycoplasma pneumoniae Not Detected (Not Detect); Parainfluenza Virus 1 Not Detected (Not Detect); Parainfluenza Virus 2 Not Detected (Not Detect); Parainfluenza Virus 3 Not Detected (Not Detect); Parainfluenza Virus 4 Not Detected (Not Detect); Respiratory Syncytial Virus Not Detected (Not Detect); SARS- CoV-2 Not Detected (Not Detecte)
[2024-03-23 11:55] LABS: NT-proBNP (BNP-Adult 18+) 1350 pg/mL (<125); Troponin I < 0.012 ng/mL (0.01-0.034)
[2024-03-23 11:59] LABS: Procalcitonin 2.14 ng/mL (<0.5)
--- NOTE | 2024-03-23 12:00 | PC.NURSE ---
Pt informed me that she had surgery in August for a broken pelvis. Dr Hernandez aware.
--- NOTE | 2024-03-23 12:08 | RT ---
pt char neb tx well, very loose NPC, on oximask at 12lpm.
--- NOTE | 2024-03-23 12:12 | PC.NURSE ---
Pts IV infiltrated in CT,it was removed,coban placed and new IV started upper left arm
[2024-03-23] MEDS: VANCOMYCIN 1,500 MG/300 ML PIGGYBACK 200 MG IV (12:57)
[2024-03-23 12:58] LABS: Reflexed Lactate in 2 Hours Y
[2024-03-23 13:43] LABS: Lactate 2HR (Lactic Acid Rflx) 2.5 mmol/L (0.7-2.1)
[2024-03-23] MEDS: HYDROMORPHONE 1 MG INJ 0.5 MG IV (14:08)
--- NOTE | 2024-03-23 15:02 | P.HP_ITS ---
History of Present Illness History of Present Illness Date Patient Seen: 03/23/24 Time Patient Seen: 14:40 Chief complaint: Might have Covid. Narrative: 43-year-old woman under the primary care of Dr. Vicki Maloney reports a 2 week history of cough, fevers, chills and shortness of breath, worsening in the last 1-2 days with significant dyspnea on exertion. She was sent to have an oxygen saturation of 80% on room air in the triage area of the emergency department. She quit smoking about 3 years ago but recently started dating nicotine, though had not done this since she became ill. 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 She denies a history of pneumonia. She has history of chronic pain and has been on Suboxone, with the last 1 month supply prescribed in November. She notes a history of chronic pelvic pain with a prior sacral fracture, though is normally ambulatory and working. No history of cancer, blood clots, heart disease, travel history or HIV risk factors. [facility] Medical History ADD (attention deficit disorder) Closed minimally displaced zone III fracture of sacrum with delayed healing Bilateral knee pain COVID-19 Depression Anxiety Encounter for routine gynecological examination (06/05/22) Encounter for wellness examination in adult (11/07/20) Interstitial cystitis (2019) Seizure disorder (2008) Psoriasis Headache Fractures Chronic back pain Cervical spine disease Ovarian cyst History of urinary incontinence Surgical History [place] teeth extracted Anesthesia History of neck surgery (~2010) History of inguinal hernia repair History of umbilical hernia repair Family History Grandfather History of heart disease Social History Smoking Status: Former smoker Meds Home Medications and Allergies Home Medications Medication Instructions Recorded Confirmed Type tamsulosin 0.4 mg capsule (Flomax) 0.8 mg (2 x 0.4 mg) PO DAILY #180 07/23/23 03/10/24 Rx caps fluoxetine 40 mg capsule 40 mg PO QAM #90 caps 12/06/23 03/10/24 Rx gabapentin 300 mg capsule 300 mg PO BEDTIME #90 caps 12/10/23 03/10/24 Rx amitriptyline 25 mg tablet 25 mg PO BEDTIME 01/20/24 03/10/24 History buprenorphine 12 mg-naloxone 3 mg See Rx Instructions .Route 02/03/24 03/10/24 Rx sublingual film (Suboxone) .COMPLEX #60 film methylphenidate HCl 27 mg 27 mg PO DAILY #30 tabs 03/10/24 03/10/24 Rx tablet,extended release 24 hr (Concerta) Allergies Allergy/AdvReac Type Severity Reaction Status Date / Time amoxicillin Allergy Verified 03/23/24 10:34 Penicillins Allergy Verified 03/23/24 10:34 sulfamethoxazole Allergy Verified 03/23/24 10:34 [From Bactrim] trimethoprim [From Bactrim] Allergy Verified 03/23/24 10:34 cillians Allergy Uncoded 03/10/24 13:26 Review of Systems Review of Systems ROS: Yes All systems reviewed with the patient and are negative except as otherwise documented Exam Vital Signs (past 8 hours): - 03/23/24 10:34 03/23/24 10:45 03/23/24 10:45 Temperature 98.3 F Pulse Rate 124 H 130 H Respiratory Rate 18 Blood Pressure 124/64 128/69 Pulse Oximetry 80 L 73 L Oxygen Delivery Method Room Air Oxygen Flow Rate 03/23/24 11:00 03/23/24 11:01 03/23/24 11:01 Temperature Pulse Rate 118 H 117 H Respiratory Rate 29 H 28 H Blood Pressure 105/59 L Pulse Oximetry 91 92 Oxygen Delivery Method Nasal Cannula Oximask Oxygen Flow Rate 2 12 03/23/24 11:15 03/23/24 11:25 03/23/24 11:30 Temperature Pulse Rate 116 H 117 H 117 H Respiratory Rate 28 H 36 H 32 H Blood Pressure Pulse Oximetry 92 93 92 Oxygen Delivery Method Oximask Heated High Flow Oxygen Flow Rate 12 40 03/23/24 12:17 03/23/24 12:30 03/23/24 12:46 Temperature Pulse Rate 111 H 108 H 108 H Respiratory Rate 25 H 17 30 H Blood Pressure Pulse Oximetry 94 90 L Oxygen Delivery Method Heated High Flow Oxygen Flow Rate 40 40 03/23/24 12:46 03/23/24 13:00 03/23/24 13:00 Temperature Pulse Rate 108 H Respiratory Rate 20 Blood Pressure 101/53 L 98/59 L Pulse Oximetry 91 Oxygen Delivery Method Oxygen Flow Rate 40 03/23/24 13:30 03/23/24 13:34 03/23/24 13:34 Temperature Pulse Rate 106 H 108 H Respiratory Rate 37 H 30 H Blood Pressure 97/60 Pulse Oximetry 91 88 L Oxygen Delivery Method Heated High Flow Heated High Flow Oxygen Flow Rate 40 40 Oxygen Delivery Method Heated High Flow Oxygen Flow Rate 40 Narrative Exam Narrative: GENERAL: This is a well-nourished, well-developed patient, speaking 3-4 words per doing breaths, in [id number] respiratory distress, on high-flow oxygen at 70% with SaO2 92%. HEAD: Atraumatic. Normocephalic. No temporal or scalp tenderness. EYES: Pupils equal round and reactive. Extraocular motions intact. No scleral icterus. No injection or drainage. ENT: Mucous membranes pink and moist. NECK: Trachea midline. No JVD, bruits or lymphadenopathy. Supple, nontender, no meningeal signs. CARDIOVASCULAR: Regular rate and rhythm without murmurs, gallops, or rubs. RESPIRATORY: Scattered bilateral crackles particularly on the right side and left base, tachypneic, intercostal accessory muscle use. GASTROINTESTINAL: Abdomen soft, non-tender, nondistended. EXTREMITIES: No clubbing, cyanosis, or edema. BACK: Nontender without deformity or crepitance. No flank tenderness. NEUROLOGIC: Alert, oriented, speech fluent, full upper and lower motor strength, no focal deficits evident. DERMATOLOGIC: No rashes or skin lesions. Objective ECG Impression: Sinus tachycardia 110 beats per minute, incomplete right bundle branch block pattern, nonspecific T-wave flattening inferior laterally. Imaging Chest x-ray: Radiologist's impression: Prominent right greater than left consolidative pneumonia pattern. Chest CTA: Radiologist's impression: FINDINGS: Image quality: Diagnostic. Pulmonary arteries: Pulmonary arteries are normal in size, and demonstrate no intraluminal filling defects to suggest central pulmonary embolism. Lower Neck: No enlarged lymph nodes. Thyroid: No thyroid nodules which require sonographic follow up, per consensus guidelines. Axillae: No enlarged lymph nodes. Chest Wall: Unremarkable. Bones: Unremarkable. Lungs and Pleura: There is extensive bilateral pneumonia with dense consolidation much of the right upper lobe and right middle lobe and relatively extensive bibasilar lower lobe consolidation. There is relative sparing of the left upper lobe. Heart: Heart size is normal. No pericardial effusion. Thoracic Vessels: No aortic aneurysm. Mediastinum and Angela: No enlarged lymph nodes. Esophagus: No wall thickening. No hiatal hernia. Upper Abdomen: Visualized upper abdomen solid organs and bowel loops appear normal. IMPRESSION: 1. No pulmonary emboli. 2. Advanced bilateral pneumonia. Labs 03/23/24 11:13 03/23/24 11:13 Labs: Laboratory Results - last 24 hr 03/23/24 03/23/24 03/23/24 10:54 11:13 11:17 WBC 7.5 RBC 3.50 L Hgb 10.7 L Hct 31.4 L MCV 89.8 MCH 30.6 MCHC 34.0 RDW 14.7 Plt Count 321 Neut % (Auto) Not Reportable Lymph % (Auto) Not Reportable [place] % (Auto) Not Reportable Eos % (Auto) Not Reportable Baso % (Auto) Not Reportable Lymph # (Auto) Not Reportable [place] # (Auto) Not Reportable Baso # (Auto) Not Reportable Total Counted 100 Seg Neutrophils % 80.0 H Band Neutrophils % 14.0 H Lymphocytes % (Manual) 1.0 L Monocytes % (Manual) 5.0 Neutrophils # (Manual) 7050 H RBC Morphology Normal morphology D-Dimer 3657 H VBG pH 7.49 H VBG pCO2 28.8 L VBG pO2 60 H VBG HCO3 22 L VBG Total CO2 22 L VBG O2 Saturation 93 H VBG Base Excess -0.5 L Sodium 134 L Potassium 3.2 L Chloride 101 Carbon Dioxide 23 BUN 20 H Creatinine 0.62 Estimated GFR > 60 BUN/Creatinine Ratio 32.3 H Glucose 98 Lactate 2.4 H Calcium 8.9 Magnesium 1.8 Total Bilirubin 0.8 AST 46 H ALT 41 H Alkaline Phosphatase 126 Troponin I < 0.012 NT-Pro-B Natriuret Pep 1350 H Total Protein 6.5 Albumin 3.3 L Globulin 3.2 Albumin/Globulin Ratio 1.0 Procalcitonin 2.14 H Chlamy pneumoniae PCR Not detected Adenovirus (PCR) Not detected B. pertussis DNA (PCR) Not detected B.parapertussis DNA PCR Not detected Coronavirus OC43 (PCR) Not detected Coronavirus HKU1 (PCR) Not detected Coronavirus 229E (PCR) Not detected SARS-CoV-2 (PCR) Not detected Coronavirus NL63 (PCR) Not detected Human Metapneumovir PCR Not detected Influenza Type A (PCR) Not detected Influenza Type B (PCR) Not detected M. pneumoniae (PCR) Not detected Parainfluenza 1 (PCR) Not detected Parainfluenza 2 (PCR) Not detected Parainfluenza 3 (PCR) Not detected Parainfluenza 4 (PCR) Not detected RSV (PCR) Not detected Entero/Rhino (PCR) Not detected 03/23/24 13:20 WBC RBC Hgb Hct MCV MCH MCHC RDW Plt Count Neut % (Auto) Lymph % (Auto) [place] % (Auto) Eos % (Auto) Baso % (Auto) Lymph # (Auto) [place] # (Auto) Baso # (Auto) Total Counted Seg Neutrophils % Band Neutrophils % Lymphocytes % (Manual) Monocytes % (Manual) Neutrophils # (Manual) RBC Morphology D-Dimer VBG pH VBG pCO2 VBG pO2 VBG HCO3 VBG Total CO2 VBG O2 Saturation VBG Base Excess Sodium Potassium Chloride Carbon Dioxide BUN Creatinine Estimated GFR BUN/Creatinine Ratio Glucose Lactate 2.5 H Calcium Magnesium Total Bilirubin AST ALT Alkaline Phosphatase Troponin I NT-Pro-B Natriuret Pep Total Protein Albumin Globulin Albumin/Globulin Ratio Procalcitonin Chlamy pneumoniae PCR Adenovirus (PCR) B. pertussis DNA (PCR) B.parapertussis DNA PCR Coronavirus OC43 (PCR) Coronavirus HKU1 (PCR) Coronavirus 229E (PCR) SARS-CoV-2 (PCR) Coronavirus NL63 (PCR) Human Metapneumovir PCR Influenza Type A (PCR) Influenza Type B (PCR) M. pneumoniae (PCR) Parainfluenza 1 (PCR) Parainfluenza 2 (PCR) Parainfluenza 3 (PCR) Parainfluenza 4 (PCR) RSV (PCR) Entero/Rhino (PCR) Assessment & Plan Assessment & Plan narrative: 1. Multifocal pneumonia, community-acquired. Cannot rule out underlying atypical or underlying immunocompromise. Continue IV vancomycin and cefepime started in the emergency department and add azithromycin. Check HIV to rule out opportunistic infection. Consult tele ICU. The patient is advised that she may decline further before improving and may require intubation and mechanical ventilation. 2. Acute hypoxemic respiratory failure due to 1. Continue high-flow oxygen. Consider intubation and mechanical ventilation deteriorating further. 3. Sepsis due to numbers 1 and 2. Hydrate and follow serial lactates. 4. Chronic pain syndrome. She has apparently had intermittent use of Suboxone over the past few months. She was last prescribed #60 on December 02 2023 by her primary care provider. Clarify further. Hold Suboxone at this point. Provide IV hydromorphone as needed. 5. Depression. Resume routine antihypertensives when reconciled and clinically stable. 6. IV access: Place PICC line given poor peripheral IV access per nursing. 7. DVT prophylaxis. Administer low-dose Lovenox. 8. Code status: Full code. The patient specialist that she wishes full treatment as reviewed above. Plan: -admit to ICU -high-flow oxygen -vancomycin, cefepime and azithromycin IV -follow cultures -follow serial lactates -tele ICU consultation -PICC line -subcutaneous Lovenox -full code Time-Based Coding :: 60 minutes of critical care time spent. Quality MIPS - Admit I confirm the patient?s Advance Care Plan is present, Code status is documented, Surrogate decision maker is in patient?s record [If Yes, STOP here]: Yes [facility] - Meds 'Current medications' to include all prescriptions, [id number] products, herbals, cannabis/cannabidiol products, and vitamin/mineral/dietary (nutritional) supplements. I have utilized all available resources to obtain, update, or review the patient?s current medications. [If Yes, STOP here]: Yes [facility] Charge Codes Critical Care: [id number]
--- NOTE | 2024-03-23 16:07 | DI.RAD.S_ITS ---
PROCEDURE: XR CHEST FOR PICC 1V INDICATIONS: PICC placement COMPARISON: [facility], , XR CHEST 1V, 03/23/2024, 11:22. FINDINGS: PICC was placed by the intravenous therapy team from the right side. Fluoroscopic spot film demonstrates the tip of PICC projecting to the area of distal SVC/cavoatrial junction. Redemonstration of right greater than left consolidative opacities. IMPRESSION: Tip of PICC projects to the area of distal SVC/cavoatrial junction. Dictated by: Ja Campos M.D. on 03/23/2024 at 17:16 Approved by: Ja Campos M.D. on 03/23/2024 at 17:16
--- NOTE | 2024-03-23 16:14 | PM.CN.EICU ---
History of Present Illness Consult details IF CAMERA ACTIVATED, patient seen via real-time interactive audiovisual communication: Camera activated Chief complaint: Might have Covid. Consent obtained for tele-principal technologist care: Yes Patient Location: ICU Provider location (State): [place] Other participants/roles: PICC RN Narrative: 43 yo F w/ PMHx significant for Suboxone dependence, psoriasis (but apparently not on any biologics) who presented w/ 2 week history of cough and SOB. Pul CTA w/ bilateral pneumonia but no PE. RSV/SARS-CoV2/influenza (-). Lactate and procalcitonin in the 2s. Started on HFNC which is currently @ 70% and 40 L/min. VBG was 7.49/29 @ 11:17 on unknown O2 source. [facility] Medical History ADD (attention deficit disorder) Closed minimally displaced zone III fracture of sacrum with delayed healing Bilateral knee pain COVID-19 Depression Anxiety Encounter for routine gynecological examination (06/05/22) Encounter for wellness examination in adult (11/07/20) Interstitial cystitis (2019) Seizure disorder (2008) Psoriasis Headache Fractures Chronic back pain Cervical spine disease Ovarian cyst History of urinary incontinence Surgical History [place] teeth extracted Anesthesia History of neck surgery (~2010) History of inguinal hernia repair History of umbilical hernia repair Family History Grandfather History of heart disease Social History household members: spouse and children Smoking Status: Former smoker alcohol intake: former Current Medications Current Medications Medications: Home Medications tamsulosin 0.4 mg capsule (Flomax) 0.8 mg (2 x 0.4 mg) PO DAILY #180 caps 07/23/23 [Rx Confirmed 03/10/24] fluoxetine 40 mg capsule 40 mg PO QAM #90 caps 12/06/23 [Rx Confirmed 03/10/24] gabapentin 300 mg capsule 300 mg PO BEDTIME #90 caps 12/10/23 [Rx Confirmed 03/10/24] amitriptyline 25 mg tablet 25 mg PO BEDTIME 01/20/24 [History Confirmed 03/10/24] buprenorphine 12 mg-naloxone 3 mg sublingual film (Suboxone) See Rx Instructions .Route .COMPLEX #60 film 02/03/24 [Rx Confirmed 03/10/24] methylphenidate HCl 27 mg tablet,extended release 24 hr (Concerta) 27 mg PO DAILY #30 tabs 03/10/24 [Rx Confirmed 03/10/24] Exam Vital Signs (past 8 hours): - 03/23/24 10:34 03/23/24 10:45 03/23/24 10:45 Temperature 98.3 F Pulse Rate 124 H 130 H Respiratory Rate 18 Blood Pressure 124/64 128/69 Pulse Oximetry 80 L 73 L Oxygen Delivery Method Room Air Oxygen Flow Rate 03/23/24 11:00 03/23/24 11:01 03/23/24 11:01 Temperature Pulse Rate 118 H 117 H Respiratory Rate 29 H 28 H Blood Pressure 105/59 L Pulse Oximetry 91 92 Oxygen Delivery Method Nasal Cannula Oximask Oxygen Flow Rate 2 12 03/23/24 11:15 03/23/24 11:25 03/23/24 11:30 Temperature Pulse Rate 116 H 117 H 117 H Respiratory Rate 28 H 36 H 32 H Blood Pressure Pulse Oximetry 92 93 92 Oxygen Delivery Method Oximask Heated High Flow Oxygen Flow Rate 12 40 03/23/24 12:17 03/23/24 12:30 03/23/24 12:46 Temperature Pulse Rate 111 H 108 H 108 H Respiratory Rate 25 H 17 30 H Blood Pressure Pulse Oximetry 94 90 L Oxygen Delivery Method Heated High Flow Oxygen Flow Rate 40 40 03/23/24 12:46 03/23/24 13:00 03/23/24 13:00 Temperature Pulse Rate 108 H Respiratory Rate 20 Blood Pressure 101/53 L 98/59 L Pulse Oximetry 91 Oxygen Delivery Method Oxygen Flow Rate 40 03/23/24 13:30 03/23/24 13:34 03/23/24 13:34 Temperature Pulse Rate 106 H 108 H Respiratory Rate 37 H 30 H Blood Pressure 97/60 Pulse Oximetry 91 88 L Oxygen Delivery Method Heated High Flow Heated High Flow Oxygen Flow Rate 40 40 03/23/24 14:45 Temperature Pulse Rate 109 H Respiratory Rate 28 H Blood Pressure Pulse Oximetry 94 Oxygen Delivery Method Oxygen Flow Rate Oxygen Delivery Method Heated High Flow Oxygen Flow Rate 40 Const Other: chronically ill-appearing female Resp Effort & Inspection: other (tachypneic in low 20s, saturating high 80s-low 90s on HFNC 70% 40 L/min) Objective Labs 03/23/24 11:13 03/23/24 11:13 Labs: Laboratory Results - last 24 hr 03/23/24 03/23/24 03/23/24 10:54 11:13 11:17 WBC 7.5 RBC 3.50 L Hgb 10.7 L Hct 31.4 L MCV 89.8 MCH 30.6 MCHC 34.0 RDW 14.7 Plt Count 321 Neut % (Auto) Not Reportable Lymph % (Auto) Not Reportable [place] % (Auto) Not Reportable Eos % (Auto) Not Reportable Baso % (Auto) Not Reportable Lymph # (Auto) Not Reportable [place] # (Auto) Not Reportable Baso # (Auto) Not Reportable Total Counted 100 Seg Neutrophils % 80.0 H Band Neutrophils % 14.0 H Lymphocytes % (Manual) 1.0 L Monocytes % (Manual) 5.0 Neutrophils # (Manual) 7050 H RBC Morphology Normal morphology D-Dimer 3657 H VBG pH 7.49 H VBG pCO2 28.8 L VBG pO2 60 H VBG HCO3 22 L VBG Total CO2 22 L VBG O2 Saturation 93 H VBG Base Excess -0.5 L Sodium 134 L Potassium 3.2 L Chloride 101 Carbon Dioxide 23 BUN 20 H Creatinine 0.62 Estimated GFR > 60 BUN/Creatinine Ratio 32.3 H Glucose 98 Lactate 2.4 H Calcium 8.9 Magnesium 1.8 Total Bilirubin 0.8 AST 46 H ALT 41 H Alkaline Phosphatase 126 Troponin I < 0.012 NT-Pro-B Natriuret Pep 1350 H Total Protein 6.5 Albumin 3.3 L Globulin 3.2 Albumin/Globulin Ratio 1.0 Procalcitonin 2.14 H Chlamy pneumoniae PCR Not detected Adenovirus (PCR) Not detected B. pertussis DNA (PCR) Not detected B.parapertussis DNA PCR Not detected Coronavirus OC43 (PCR) Not detected Coronavirus HKU1 (PCR) Not detected Coronavirus 229E (PCR) Not detected SARS-CoV-2 (PCR) Not detected Coronavirus NL63 (PCR) Not detected Human Metapneumovir PCR Not detected Influenza Type A (PCR) Not detected Influenza Type B (PCR) Not detected M. pneumoniae (PCR) Not detected Parainfluenza 1 (PCR) Not detected Parainfluenza 2 (PCR) Not detected Parainfluenza 3 (PCR) Not detected Parainfluenza 4 (PCR) Not detected RSV (PCR) Not detected Entero/Rhino (PCR) Not detected 03/23/24 13:20 WBC RBC Hgb Hct MCV MCH MCHC RDW Plt Count Neut % (Auto) Lymph % (Auto) [place] % (Auto) Eos % (Auto) Baso % (Auto) Lymph # (Auto) [place] # (Auto) Baso # (Auto) Total Counted Seg Neutrophils % Band Neutrophils % Lymphocytes % (Manual) Monocytes % (Manual) Neutrophils # (Manual) RBC Morphology D-Dimer VBG pH VBG pCO2 VBG pO2 VBG HCO3 VBG Total CO2 VBG O2 Saturation VBG Base Excess Sodium Potassium Chloride Carbon Dioxide BUN Creatinine Estimated GFR BUN/Creatinine Ratio Glucose Lactate 2.5 H Calcium Magnesium Total Bilirubin AST ALT Alkaline Phosphatase Troponin I NT-Pro-B Natriuret Pep Total Protein Albumin Globulin Albumin/Globulin Ratio Procalcitonin Chlamy pneumoniae PCR Adenovirus (PCR) B. pertussis DNA (PCR) B.parapertussis DNA PCR Coronavirus OC43 (PCR) Coronavirus HKU1 (PCR) Coronavirus 229E (PCR) SARS-CoV-2 (PCR) Coronavirus NL63 (PCR) Human Metapneumovir PCR Influenza Type A (PCR) Influenza Type B (PCR) M. pneumoniae (PCR) Parainfluenza 1 (PCR) Parainfluenza 2 (PCR) Parainfluenza 3 (PCR) Parainfluenza 4 (PCR) RSV (PCR) Entero/Rhino (PCR) Assessment & Plan Assessment and plan (1) Acute hypoxic respiratory failure: Status: Acute Plan: -Continue HFNC; wean as tolerated -Fluid conservative strategy given FIO2 requirements --> decreased maintenance IVF to 50 mL/hr and no further crystalloid boluses despite sepsis -Vancomycin/cefepime/azithromycin -Check Legionella/Pneumococcal urine Ags -Follow up MRSA, cultures (2) Community acquired pneumonia: Qualifiers: Laterality: unspecified laterality Qualified Code(s): J18.9 - Pneumonia, unspecified organism Status: Acute Plan: -See problem #1 (3) Opioid dependence: Qualifiers: Substance use status: uncomplicated Qualified Code(s): F11.20 - Opioid dependence, uncomplicated Status: Acute Plan: Follow Plan Enoxaparin VTE prophylaxis in place Stress ulcer prophylaxis not indicated I spent a total of 35 minutes of aggregated critical care time today on this patient's care; this time excludes procedural time. Time-Based Coding :: [TOTAL MINUTES] spent with patient and on the chart (including review of chart, obtaining history, exam, reviewing outside data, placing orders, documenting exam and treatment plan, and counseling patient) on [DATE].
[2024-03-23 16:32] LABS: MRSA (Nasal) PCR NOT DETECTED (Not Detect)
[2024-03-23 16:57] LABS: Fractionated Inspired Oxygen 70 %
--- NOTE | 2024-03-23 17:53 | PM.PROC.1 ---
Procedures Date/Time Date of procedure: 03/23/24 Time of procedure: 18:00 Intubation Time out performed: Yes Sedative: fentanyl (100mcg, propofol 130mg+70mg post intubation) Paralytic: succinylcholine Mg given: 70 Laryngoscope: fiber optic video scope ET tube size: 7.5 ET tube uncuffed: No Tube secured depth (cm): 21 Tube secured location: teeth (gums) Tube placement confirmation: visualized tube passing through cords, equal breath sounds bilaterally, no breath sounds over epigastrium and confirmation by capnometry Patient tolerated procedure: well Intubation complications: none Additional comments: 43y/o with pneumonia, respiratory distress/impending failure. On 50L HHO2, sats low 90's. +vape. Labs reviewed, discussed with attending physician prior and post intubation. ASA 3E.
[2024-03-23] MEDS: fentaNYL 1,000 MCG in DEXTROSE 5% IN WATER 230 ML 11.51 MCG IV (18:00)
[2024-03-23] MEDS: propofoL 1,000 MG/100 ML VIAL 13.812 MG IV ×2 (18:00→21:30)
--- NOTE | 2024-03-23 18:04 | DI.RAD.S_ITS ---
PROCEDURE: XR CHEST 1V INDICATIONS: ETT placement OG TECHNIQUE: One view of the chest was acquired. COMPARISON: [facility], CT, CT ANGIO CHEST PE PROTOCOL, 03/23/2024, 12:03. [facility], CR, XR CHEST FOR PICC 1V, 03/23/2024, 16:07. [facility], CR, XR CHEST 1V, 03/23/2024, 11:22. FINDINGS: Surgical changes and devices: Right upper extremity central venous catheter distal tip overlying the cavoatrial junction. Endotracheal tube tip 3.1 cm above the michael. Enteric tube tip and side port coiled in the gastric body. Lungs and pleura: Re-identified multifocal pneumonia, predominantly affecting the right lobes and left lower lobe. No pneumothorax. No pleural effusion. Mediastinum: Mediastinal contours appear normal. Heart size is normal. Bones and chest wall: No suspicious bony lesions. Overlying soft tissues appear unremarkable. IMPRESSION: 1. Interval placement of enteric tube tip and side port to the level of the gastric body. 2. Re-identified multifocal pneumonia. Dictated by: Fadi Lyles M.D. on 03/23/2024 at 20:27 Approved by: Fadi Lyles M.D. on 03/23/2024 at 20:31
--- NOTE | 2024-03-23 18:09 | RT ---
Called to ICU 228 for intubation, pt bagged with 100% fio2, suction and intubated by MD without incident. Pos etco2 color change and et tube secured. No distress noted and pt placed on ventilator, bag mask unit at hob
[2024-03-23] MEDS: fentaNYL 100 MCG/2 ML INJ IV ×2 (18:29→18:30)
[2024-03-23] MEDS: SUCCINYLCHOLINE 200 MG/10 ML VIAL 70 MG IV (18:31)
[2024-03-23] MEDS: propofoL 200 MG/20 ML VIAL 130 MG IV (18:31)
[2024-03-23] MEDS: MIDAZOLAM 50 MG in DEXTROSE 5 % IN WATER 40 ML IV (18:41)
--- NOTE | 2024-03-23 18:42 | PM.ICURNDS ---
- :: This patient was seen via real time interactive two-way audiovisual telecommunication. Note: Pt got intubated for worsening hypoxia and respiratory distress, currently on PRVC 20/390/10/100%, pending ABg after adequate sedation, on propfole and fentanyl, versed was added, adding levophed for possible need given the sedatives needed to keep well sedative for vent synchrony, added Zosyn, cont Vanc and Azithromycin, check urine legionella, added GI ppx. Discussed with ICU staff .
--- NOTE | 2024-03-23 18:48 | PC.NURSE ---
Day shift: This group underwriter present for intubation today. Assisted primary TAL Elias.
[2024-03-23] MEDS: NOREPINEPHRINE BITARTRATE/D5W 4 MG/250 ML PLAST..BAG 24.664 MG IV (18:49)
[2024-03-23 18:53] LABS: Appearance Urine UA CLEAR; Bilirubin Urine UA NEGATIVE (NEGATIVE); Color Urine UA YELLOW; Glucose Urine UA NEGATIVE (Negative); Ketones Urine UA NEGATIVE (NEGATIVE); Leukocyte Esterase Urine UA NEGATIVE (NEGATIVE); Nitrite Urine UA NEGATIVE (Negative); Occult Blood Urine UA TRACE-INTACT (Negative); Protein Urine UA 1+ (Negative); Urobilinogen Urine UA 0.2 E.U./dL (0.2)
[2024-03-23] MEDS: ALBUMIN HUMAN 12.5 GM/250 ML VIAL IV (18:55)
[2024-03-23 19:04] LABS: Bacteria Urine None Seen; Culture Indicated Urine Cult Not Indicated; RBC Urine 0-1/HPF (0-5/HPF); Squamous Epithelial Cell Urine 0-1 /HPF (0-5/HPF); Urine Volume 10mL (spun); WBC Urine 0-1/HPF (0-5/HPF)
--- NOTE | 2024-03-23 19:28 | PC.NURSE ---
Pt arrived on unit with RT at bedside on HHF, 40L/61% sats 88-92%, work of breathing RR 35, Provider at bedside, decision to intubate made, pt agreed, Dr Villalobos at bedside. 1737 Fentanyl 50 administered 1739 Fentanyl 50 1741 Propofol 130 mg 1743 Succs 70 1744 Intubated 7.5 ETT 21 at gums 1745 Prop 40 1748 Prop gtt started 1750 IVP Fentanyl 100 OG tube placed, Barnett placed, bilateral restraints ordered and placed, CXR for placement of ETT and OG. 181 Tele claims adjuster supervisor rounds 1900 Report given to oncoming RN, no further needs at this time
[2024-03-23] MEDS: DEXTROSE 5%-0.45% NS 1,000 ML 50 ML IV (19:45)
[2024-03-23 20:34] LABS: Lactate (Lactic Acid) 2.9 mmol/L (0.7-2.1)
[2024-03-23 21:23] LABS: HIV 1 & 2 Ab/Ag 4th Gen Combo NEGATIVE (NEGATIVE)
[2024-03-23] MEDS: PIPERACILLIN/TAZO 3.375 GM in SODIUM CHLORIDE 0.9% 100 ML IV (21:39)
[2024-03-23 21:54] LABS: Reflexed Lactate in 2 Hours Y
[2024-03-23 22:32] LABS: Lactate 2HR (Lactic Acid Rflx) 3.1 mmol/L (0.7-2.1)
[2024-03-24] VITALS (61 sets, daily range): BP systolic 91–113; BP diastolic 50–69; PULSE 92–110; RESP 17–43; TEMP 36.5–38; O2SAT 85–98
[2024-03-24] MEDS: PIPERACILLIN/TAZO 3.375 GM in SODIUM CHLORIDE 0.9% 100 ML IV ×3 (02:56→20:10)
[2024-03-24] MEDS: propofoL 1,000 MG/100 ML VIAL 15.785 MG IV ×4 (04:07→20:11)
[2024-03-24 04:46] LABS: Add Manual Diff / Slide Review NO; Basophils Absolute Auto 0 /uL (0-100); Eosinophils Absolute Auto 100 /uL (0-450); Eosinophils Percent Auto 0.6 % (2-4); Hematocrit 26.7 % (36-46); Hemoglobin 9.2 g/dL (12.0-16.0); Lymphocytes Absolute Auto 500 /uL (1100-4500); Mean Corpuscular HGB Conc 34.6 % (30-36); Mean Corpuscular Hemoglobin 31.2 PG (26-34); Mean Corpuscular Volume 90.2 fL (80-100); Monocytes Absolute Auto 100 /uL (0-900); Monocytes Percent Auto 1.3 % (3-14); Neutrophils Absolute Auto 9700 /uL (1500-7000); Neutrophils Percent Auto 93.1 % (50-75); Platelet Count 248 X10^3/uL (150-400); Red Blood Cell Count 2.96 X10^6/uL (4.0-5.2); Red Cell Distribution Width 15.1 % (11.6-14.8); White Blood Cell Count 10.4 X10^3/uL (4.5-11.0)
[2024-03-24 04:56] LABS: Blood Urea Nitrogen 11 mg/dL (7-17); Calcium 8.1 mg/dL (8.4-10.2); Carbon Dioxide 25 mmol/L (22-32); Chloride 105 mmol/L (98-107); Estimated Glomerular Filt Rate > 60 mL/min (>60); Glucose 107 mg/dL (70-100); HEMOLYSIS < 15 (0-50); Potassium 3.1 mmol/L (3.4-5.1); Sodium 136 mmol/L (137-145)
--- NOTE | 2024-03-24 05:00 | DI.RAD.S_ITS ---
PROCEDURE: XR CHEST 1V INDICATIONS: pneumonia TECHNIQUE: One view of the chest was acquired. COMPARISON: [facility], CT, CT ANGIO CHEST PE PROTOCOL, 03/23/2024, 12:03. [facility], CR, XR CHEST 1V, 03/23/2024, 11:22. [facility], CR, XR CHEST 1V, 03/23/2024, 18:02. FINDINGS: Surgical changes and devices: An endotracheal tube is seen, with the tip 6 cm above the michael. There is a gastric tube seen, with the tube coiled within the stomach, with the tip lying along the fundus of the stomach. The side hole is clearly below the level of the diaphragm. A right-sided PICC line is seen, with the tip overlying the inferior aspect of the superior vena cava, 2-3 cm above the cavoatrial junction. Lungs and pleura: Dense bilateral infiltrates, right worse than left. The infiltrates are slightly improved compared to the prior examination, with better aeration of the lungs. Mediastinum: Mediastinal contours appear normal. Heart size is mildly enlarged. Bones and chest wall: No suspicious bony lesions. Overlying soft tissues appear unremarkable. IMPRESSION: The tip of the endotracheal tube is seen 6 cm above the michael. Bilateral dense infiltrates are seen, which are slightly improved compared to the prior examination. Dictated by: Savage Bolden M.D. on 03/24/2024 at 18:02 Approved by: Savage Bolden M.D. on 03/24/2024 at 18:04
[2024-03-24 05:28] LABS: Acinetobacter calcoa-baumannii Not Detected (Not Detect); Bacteroides fragilis Not Detected (Not Detect); Candida albicans Not Detected (Not Detect); Candida auris Not Detected (Not Detect); Candida glabrata Not Detected (Not Detect); Candida krusei Not Detected (Not Detect); Candida parapsilosis Not Detected (Not Detect); Candida tropicalis Not Detected (Not Detect); Cryptococcus neoformans/gatti Not Detected (Not Detect); Enterobacter cloacae complex Not Detected (Not Detect); Enterobacterales Not Detected (Not Detect); Enterococcus faecalis Not Detected (Not Detect); Enterococcus faecium Not Detected (Not Detect); Haemophilus influenzae Not Detected (Not Detect); Klebsiella aerogenes Not Detected (Not Detect); Listeria monocytogenes Not Detected (Not Detect); Neisseria meningitidis Not Detected (Not Detect); Proteus species Not Detected (Not Detect); Pseudomonas aeruginosa Not Detected (Not Detect); Salmonella species Not Detected (Not Detect); Serratia marcescens Not Detected (Not Detect); Staphylococcus epidermidis Not Detected (Not Detect); Staphylococcus lugdunensis Not Detected (Not Detect); Staphylococcus species Not Detected (Not Detect); Stenotrophomonas maltophilia Not Detected (Not Detect); Streptococcus agalactiae (Gr B Not Detected (Not Detect); Streptococcus pyogenes (Gr A) Not Detected (Not Detect); Streptococcus species Detected (Not Detect)
[2024-03-24 05:50] LABS: Streptococcus pneumonia Detected (Not Detect)
--- NOTE | 2024-03-24 06:33 | PC.NURSE ---
Patient's 1 set of blood culture positive for gram (+) cocci, currently on IV antibiotics, will update
[2024-03-24] MEDS: ALBUTEROL/IPRATROPIUM 3 ML AMPUL INH ×5 (07:46→23:51)
--- NOTE | 2024-03-24 07:57 | P.PN_ITS ---
Subjective Subjective Date Patient Seen: 03/24/24 Time Patient Seen: 08:09 Interval history: 43-year-old woman under the primary care of Dr. Vicki Maloney reports a 2 week history of cough, fevers, chills and shortness of breath, worsening in the last 1-2 days with significant dyspnea on exertion. She was sent to have an oxygen saturation of 80% on room air in the triage area of the emergency department. She quit smoking about 3 years ago but recently started dating nicotine, though had not done this since she became ill. 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 She denies a history of pneumonia. She has history of chronic pain and has been on Suboxone, with the last 1 month supply prescribed in November. She notes a history of chronic pelvic pain with a prior sacral fracture, though is normally ambulatory and working. No history of cancer, blood clots, heart disease, travel history or HIV risk factors. The patient experienced respiratory decompensation over the course of the afternoon with arterial blood gas on FiO2 0.7 high flow mask: PH 7.49, pCO2 28.8, PO2 60, with tachypnea, increased accessory muscle use and signs of respiratory fatigue. At this point the decision was made to intubate by this provider. The patient was intubated without incidents and placed on mechanical ventilation with low tidal volume ARDS protocol and sedation with propofol and fentanyl infusions. The tele ICU upholsterer inside is updated on the status. Interval history: The patient remains intubated, sedated on mechanical ventilation. Her night was otherwise uneventful. She is seen with her Jj at bedside. Team rounds are conducted with nursing, respiratory therapy, pharmacy and nursing. Exam Vital Signs (past 8 hours): - 03/24/24 00:00 03/24/24 00:00 03/24/24 00:30 Temperature Pulse Rate 107 H 105 H Respiratory Rate 25 H 25 H Blood Pressure 101/57 L Pulse Oximetry 97 97 03/24/24 00:30 03/24/24 01:00 03/24/24 01:00 Temperature Pulse Rate 104 H Respiratory Rate 25 H Blood Pressure 102/56 L 103/59 L Pulse Oximetry 96 03/24/24 01:30 03/24/24 01:30 03/24/24 02:00 Temperature Pulse Rate 102 H Respiratory Rate 25 H Blood Pressure 96/54 L 95/54 L Pulse Oximetry 96 03/24/24 02:00 03/24/24 02:30 03/24/24 02:30 Temperature Pulse Rate 101 H 104 H Respiratory Rate 22 23 Blood Pressure 103/60 Pulse Oximetry 98 98 03/24/24 03:00 03/24/24 03:00 03/24/24 03:30 Temperature 99.5 F Pulse Rate 102 H Respiratory Rate 23 Blood Pressure 101/56 L 96/56 L Pulse Oximetry 97 03/24/24 03:30 03/24/24 04:00 03/24/24 04:00 Temperature Pulse Rate 101 H 100 H Respiratory Rate 26 H 25 H Blood Pressure 100/57 L Pulse Oximetry 97 98 03/24/24 04:30 03/24/24 04:30 03/24/24 05:00 Temperature Pulse Rate 100 H 100 H Respiratory Rate 24 24 Blood Pressure 97/56 L Pulse Oximetry 97 97 03/24/24 05:00 03/24/24 05:30 03/24/24 05:30 Temperature Pulse Rate 99 H Respiratory Rate 22 Blood Pressure 100/57 L 93/56 L Pulse Oximetry 96 03/24/24 06:00 03/24/24 06:00 03/24/24 06:30 Temperature Pulse Rate 97 H Respiratory Rate 22 Blood Pressure 94/53 L 96/53 L Pulse Oximetry 97 03/24/24 06:30 03/24/24 07:00 03/24/24 07:00 Temperature Pulse Rate 97 H 97 H Respiratory Rate 23 24 Blood Pressure 95/54 L Pulse Oximetry 97 97 Oxygen Delivery Method Mechanical Ventilation Oxygen Flow Rate 40 Narrative Exam Narrative: GENERAL: This is a well-nourished, well-developed patient, intubated, sedated, endotracheal and orogastric tubes in place, Barnett catheterized, PICC line EYES: Pupils equal round and reactive. Extraocular motions intact. No scleral icterus. No injection or drainage. ENT: Mucous membranes pink and moist. NECK: Trachea midline. No JVD, bruits or lymphadenopathy. Supple, nontender, no meningeal signs. CARDIOVASCULAR: Regular rate and rhythm without murmurs, gallops, or rubs. RESPIRATORY: Scattered bilateral crackles particularly on the right side and left base, tachypneic, intercostal accessory muscle use. GASTROINTESTINAL: Abdomen soft, non-tender, nondistended. EXTREMITIES: No clubbing, cyanosis, or edema. NEUROLOGIC: Alert, oriented, speech fluent, full upper and lower motor strength, no focal deficits evident. DERMATOLOGIC: No rashes or skin lesions. Const Other: chronically ill-appearing female Resp Effort & Inspection: other (tachypneic in low 20s, saturating high 80s-low 90s on HFNC 70% 40 L/min) Objective Labs 03/24/24 04:30 03/24/24 04:30 Labs: Laboratory Results - last 24 hr 03/23/24 03/23/24 03/23/24 10:54 11:13 11:17 WBC 7.5 RBC 3.50 L Hgb 10.7 L Hct 31.4 L MCV 89.8 MCH 30.6 MCHC 34.0 RDW 14.7 Plt Count 321 Neut % (Auto) Not Reportable Lymph % (Auto) Not Reportable [place] % (Auto) Not Reportable Eos % (Auto) Not Reportable Baso % (Auto) Not Reportable Neut # (Auto) Lymph # (Auto) Not Reportable [place] # (Auto) Not Reportable Eos # (Auto) Baso # (Auto) Not Reportable Total Counted 100 Seg Neutrophils % 80.0 H Band Neutrophils % 14.0 H Lymphocytes % (Manual) 1.0 L Monocytes % (Manual) 5.0 Neutrophils # (Manual) 7050 H RBC Morphology Normal morphology D-Dimer 3657 H VBG pH 7.49 H VBG pCO2 28.8 L VBG pO2 60 H VBG HCO3 22 L VBG Total CO2 22 L VBG O2 Saturation 93 H VBG Base Excess -0.5 L FiO2 % 70 Sodium 134 L Potassium 3.2 L Chloride 101 Carbon Dioxide 23 BUN 20 H Creatinine 0.62 Estimated GFR > 60 BUN/Creatinine Ratio 32.3 H Glucose 98 Lactate 2.4 H Calcium 8.9 Magnesium 1.8 Total Bilirubin 0.8 AST 46 H ALT 41 H Alkaline Phosphatase 126 Troponin I < 0.012 NT-Pro-B Natriuret Pep 1350 H Total Protein 6.5 Albumin 3.3 L Globulin 3.2 Albumin/Globulin Ratio 1.0 Procalcitonin 2.14 H Urine Color Urine Appearance Urine pH Ur Specific [place] Urine Protein Urine Glucose (UA) Urine Ketones Urine Occult Blood Urine Nitrate Urine Bilirubin Urine Urobilinogen Ur Leukocyte Esterase Urine RBC Urine WBC Ur Squamous Epith Cells Urine Bacteria Ur Culture Indicated? Vol Urine Centrifuged Nasal Screen MRSA (PCR) A.calcoaceticus-baumannii cmplx PCR Not detected Chlamy pneumoniae PCR Not detected Adenovirus (PCR) Not detected Bacteroides fragilis Not detected B. pertussis DNA (PCR) Not detected B.parapertussis DNA PCR Not detected Jaclyn albicans (PCR) Not detected Jaclyn auris (PCR) Not detected C. glabrata (PCR) Not detected C. krusei (PCR) Not detected C. parapsilosis (PCR) Not detected C. tropicalis (PCR) Not detected Coronavirus OC43 (PCR) Not detected Coronavirus HKU1 (PCR) Not detected Coronavirus 229E (PCR) Not detected SARS-CoV-2 (PCR) Not detected Coronavirus NL63 (PCR) Not detected C. neoform/gattii (PCR) Not detected Enterobacterales (PCR) Not detected E. cloacae complex PCR Not detected Enterococc faecalis PCR Not detected Enterococc faecium PCR Not detected E. coli (PCR) Not detected H. influenzae (PCR) Not detected HIV 1&2 Ab/P24 Ag 4thGn Human Metapneumovir PCR Not detected Influenza Type A (PCR) Not detected Influenza Type B (PCR) Not detected Klebsiella aerogenes (PCR) Not detected Klebsiella oxytoca PCR Not detected Klebsiella pneumoniae Not detected List. monocytogenes PCR Not detected M. pneumoniae (PCR) Not detected N. meningitidis (PCR) Not detected Parainfluenza 1 (PCR) Not detected Parainfluenza 2 (PCR) Not detected Parainfluenza 3 (PCR) Not detected Parainfluenza 4 (PCR) Not detected Proteus species (PCR) Not detected RSV (PCR) Not detected Entero/Rhino (PCR) Not detected Salmonella spp. (PCR) Not detected Serratia marcescens PCR Not detected Staphylococcus sp PCR Not detected Staph aureus (PCR) Not detected mecA/C & MREJ Resist Gene Not applicable mecA/C-Methicil Resis Gene Not applicable mcr-1 Colistin Res Gene PCR Not applicable Staph epidermidis (PCR) Not detected Staph lugdunensis PCR Not detected S. maltophilia (PCR) Not detected Streptococcus sp PCR Detected Group A Strep (PCR) Not detected Strep agalactiae (PCR) Not detected Strep pneumoniae (PCR) Detected P. aeruginosa (PCR) Not detected Josephine/B-Vanco Res Genes Not applicable blaIMP Car res Gene PCR Not applicable KPC-Carbap Res Gene PCR Not applicable blaNDM Car Res Gene PCR Not applicable OXA-48 Carbapenem Resis Gene (PCR) Not applicable blaVIM Car Res Gene PCR Not applicable CTX-M Gene Resistance (PCR) Not applicable 03/23/24 03/23/24 03/23/24 13:20 14:40 18:43 WBC RBC Hgb Hct MCV MCH MCHC RDW Plt Count Neut % (Auto) Lymph % (Auto) [place] % (Auto) Eos % (Auto) Baso % (Auto) Neut # (Auto) Lymph # (Auto) [place] # (Auto) Eos # (Auto) Baso # (Auto) Total Counted Seg Neutrophils % Band Neutrophils % Lymphocytes % (Manual) Monocytes % (Manual) Neutrophils # (Manual) RBC Morphology D-Dimer VBG pH VBG pCO2 VBG pO2 VBG HCO3 VBG Total CO2 VBG O2 Saturation VBG Base Excess FiO2 % Sodium Potassium Chloride Carbon Dioxide BUN Creatinine Estimated GFR BUN/Creatinine Ratio Glucose Lactate 2.5 H Calcium Magnesium Total Bilirubin AST ALT Alkaline Phosphatase Troponin I NT-Pro-B Natriuret Pep Total Protein Albumin Globulin Albumin/Globulin Ratio Procalcitonin Urine Color Yellow Urine Appearance Clear Urine pH 6.0 Ur Specific [place] 1.010 Urine Protein 1+ H Urine Glucose (UA) Negative Urine Ketones Negative Urine Occult Blood Trace-intact Urine Nitrate Negative Urine Bilirubin Negative Urine Urobilinogen 0.2 Ur Leukocyte Esterase Negative Urine RBC 0-1/hpf Urine WBC 0-1/hpf Ur Squamous Epith Cells 0-1 /hpf Urine Bacteria None seen Ur Culture Indicated? Cult not indicated Vol Urine Centrifuged 10ml (spun) Nasal Screen MRSA (PCR) Not detected A.calcoaceticus-baumannii cmplx PCR Chlamy pneumoniae PCR Adenovirus (PCR) Bacteroides fragilis B. pertussis DNA (PCR) B.parapertussis DNA PCR Jaclyn albicans (PCR) Jaclyn auris (PCR) C. glabrata (PCR) C. krusei (PCR) C. parapsilosis (PCR) C. tropicalis (PCR) Coronavirus OC43 (PCR) Coronavirus HKU1 (PCR) Coronavirus 229E (PCR) SARS-CoV-2 (PCR) Coronavirus NL63 (PCR) C. neoform/gattii (PCR) Enterobacterales (PCR) E. cloacae complex PCR Enterococc faecalis PCR Enterococc faecium PCR E. coli (PCR) H. influenzae (PCR) HIV 1&2 Ab/P24 Ag 4thGn Human Metapneumovir PCR Influenza Type A (PCR) Influenza Type B (PCR) Klebsiella aerogenes (PCR) Klebsiella oxytoca PCR Klebsiella pneumoniae List. monocytogenes PCR M. pneumoniae (PCR) N. meningitidis (PCR) Parainfluenza 1 (PCR) Parainfluenza 2 (PCR) Parainfluenza 3 (PCR) Parainfluenza 4 (PCR) Proteus species (PCR) RSV (PCR) Entero/Rhino (PCR) Salmonella spp. (PCR) Serratia marcescens PCR Staphylococcus sp PCR Staph aureus (PCR) mecA/C & MREJ Resist Gene mecA/C-Methicil Resis Gene mcr-1 Colistin Res Gene PCR Staph epidermidis (PCR) Staph lugdunensis PCR S. maltophilia (PCR) Streptococcus sp PCR Group A Strep (PCR) Strep agalactiae (PCR) Strep pneumoniae (PCR) P. aeruginosa (PCR) Josephine/B-Vanco Res Genes blaIMP Car res Gene PCR KPC-Carbap Res Gene PCR blaNDM Car Res Gene PCR OXA-48 Carbapenem Resis Gene (PCR) blaVIM Car Res Gene PCR CTX-M Gene Resistance (PCR) 03/23/24 03/23/24 03/24/24 20:15 22:09 04:30 WBC 10.4 RBC 2.96 L Hgb 9.2 L Hct 26.7 L MCV 90.2 MCH 31.2 MCHC 34.6 RDW 15.1 H Plt Count 248 Neut % (Auto) 93.1 H Lymph % (Auto) 5.0 L [place] % (Auto) 1.3 L Eos % (Auto) 0.6 L Baso % (Auto) 0.0 Neut # (Auto) 9700 H Lymph # (Auto) 500 L [place] # (Auto) 100 Eos # (Auto) 100 Baso # (Auto) 0 Total Counted Seg Neutrophils % Band Neutrophils % Lymphocytes % (Manual) Monocytes % (Manual) Neutrophils # (Manual) RBC Morphology D-Dimer VBG pH VBG pCO2 VBG pO2 VBG HCO3 VBG Total CO2 VBG O2 Saturation VBG Base Excess FiO2 % Sodium 136 L Potassium 3.1 L Chloride 105 Carbon Dioxide 25 BUN 11 Creatinine 0.58 Estimated GFR > 60 BUN/Creatinine Ratio 19.0 Glucose 107 H Lactate 2.9 H 3.1 H Calcium 8.1 L Magnesium Total Bilirubin AST ALT Alkaline Phosphatase Troponin I NT-Pro-B Natriuret Pep Total Protein Albumin Globulin Albumin/Globulin Ratio Procalcitonin Urine Color Urine Appearance Urine pH Ur Specific [place] Urine Protein Urine Glucose (UA) Urine Ketones Urine Occult Blood Urine Nitrate Urine Bilirubin Urine Urobilinogen Ur Leukocyte Esterase Urine RBC Urine WBC Ur Squamous Epith Cells Urine Bacteria Ur Culture Indicated? Vol Urine Centrifuged Nasal Screen MRSA (PCR) A.calcoaceticus-baumannii cmplx PCR Chlamy pneumoniae PCR Adenovirus (PCR) Bacteroides fragilis B. pertussis DNA (PCR) B.parapertussis DNA PCR Jaclyn albicans (PCR) Jaclyn auris (PCR) C. glabrata (PCR) C. krusei (PCR) C. parapsilosis (PCR) C. tropicalis (PCR) Coronavirus OC43 (PCR) Coronavirus HKU1 (PCR) Coronavirus 229E (PCR) SARS-CoV-2 (PCR) Coronavirus NL63 (PCR) C. neoform/gattii (PCR) Enterobacterales (PCR) E. cloacae complex PCR Enterococc faecalis PCR Enterococc faecium PCR E. coli (PCR) H. influenzae (PCR) HIV 1&2 Ab/P24 Ag 4thGn Negative Human Metapneumovir PCR Influenza Type A (PCR) Influenza Type B (PCR) Klebsiella aerogenes (PCR) Klebsiella oxytoca PCR Klebsiella pneumoniae List. monocytogenes PCR M. pneumoniae (PCR) N. meningitidis (PCR) Parainfluenza 1 (PCR) Parainfluenza 2 (PCR) Parainfluenza 3 (PCR) Parainfluenza 4 (PCR) Proteus species (PCR) RSV (PCR) Entero/Rhino (PCR) Salmonella spp. (PCR) Serratia marcescens PCR Staphylococcus sp PCR Staph aureus (PCR) mecA/C & MREJ Resist Gene mecA/C-Methicil Resis Gene mcr-1 Colistin Res Gene PCR Staph epidermidis (PCR) Staph lugdunensis PCR S. maltophilia (PCR) Streptococcus sp PCR Group A Strep (PCR) Strep agalactiae (PCR) Strep pneumoniae (PCR) P. aeruginosa (PCR) Josephine/B-Vanco Res Genes blaIMP Car res Gene PCR KPC-Carbap Res Gene PCR blaNDM Car Res Gene PCR OXA-48 Carbapenem Resis Gene (PCR) blaVIM Car Res Gene PCR CTX-M Gene Resistance (PCR) [facility] Medical History ADD (attention deficit disorder) Closed minimally displaced zone III fracture of sacrum with delayed healing Bilateral knee pain COVID-19 Depression Anxiety Encounter for routine gynecological examination (06/05/22) Encounter for wellness examination in adult (11/07/20) Interstitial cystitis (2019) Seizure disorder (2008) Psoriasis Headache Fractures Chronic back pain Cervical spine disease Ovarian cyst History of urinary incontinence Surgical History [place] teeth extracted Anesthesia History of neck surgery (~2010) History of inguinal hernia repair History of umbilical hernia repair Family History Grandfather History of heart disease Social History household members: spouse and children Smoking Status: Former smoker alcohol intake: former Assessment & Plan Assessment & Plan narrative: 1. Multifocal pneumonia, community-acquired due to Streptococcus pneumoniae. Cannot rule out underlying atypical or underlying immunocompromise. Legionella pending. Continue IV vancomycin, azithromycin and cefepime pending final cultures. Negative HIV. Prognosis remains guarded. 2. Acute hypoxemic respiratory failure due to 1. Continue intubation and mechanical ventilation with ARDS protocol. Tele ICU consultation appreciated. 3. Pneumococcal septicemia due to numbers 1 and 2. 4. Chronic pain syndrome. She has apparently had intermittent use of Suboxone over the past few months. She was last prescribed #60 on December 02 2023 by her primary care provider. Clarify further. Hold Suboxone at this point. Provide IV hydromorphone as needed. 5. Depression. Resume routine antihypertensives when reconciled and clinically stable. 6. IV access: PICC line given poor peripheral IV access per nursing. 7. Dietary: Tube feeds started 8. DVT prophylaxis. Administer low-dose Lovenox. 9. Code status: Full code. Plan: -admit to ICU -ARDS protocol -vancomycin, cefepime and azithromycin IV -start tube feed -subcutaneous Lovenox -full code Time-Based Coding :: 45 minutes of critical care time spent IH PROFEE Charge codes Critical Care: [id number]
[2024-03-24] MEDS: POTASSIUM CHLORIDE IN WATER 10 MEQ/100 ML PIGGYBACK 100 MEQ IV ×4 (08:26→11:46)
[2024-03-24 08:58] LABS: Magnesium 2.3 mg/dL (1.6-2.3)
[2024-03-24 10:04] LABS: Base Excess ABG -2.4 mmol/L (-2-3); Delivery System High Flow Nas Cannul; HCO3 ABG 23 mmol/L (23-27); Oxygen Saturation ABG 92 % (95-100); PCO2 ABG 38.5 mmHg (35-45); PO2 ABG 65 mmHg (80-100); TCO2 ABG 22 mmol/L (23-27); pH ABG 7.38 (7.35-7.45)
[2024-03-24 10:19] LABS: Base Excess ABG 2.1 mmol/L (-2-3); Blood Gas Mode Assist Cont Ventilat; Delivery System Adult Ventilator; HCO3 ABG 26 mmol/L (23-27); PEEP 9; Respiratory Rate 20; TCO2 ABG 26 mmol/L (23-27); pH ABG 7.45 (7.35-7.45)
[2024-03-24 10:24] LABS: Base Excess ABG 1.3 mmol/L (-2-3); Blood Gas Collection Site Right Brachial; Blood Gas Mode Assist Cont Ventilat; HCO3 ABG 26 mmol/L (23-27); Oxygen Saturation ABG 99 % (95-100); PEEP 9; PO2 ABG 114 mmHg (80-100); Respiratory Rate 20; TCO2 ABG 26 mmol/L (23-27); pH ABG 7.43 (7.35-7.45)
[2024-03-24] MEDS: fentaNYL 1,000 MCG in DEXTROSE 5% IN WATER 230 ML 14.798 MCG IV ×2 (10:25→22:50)
--- NOTE | 2024-03-24 11:28 | DIET.CONS ---
Dietary Consultation Note Admission Date: 03/23/2024 13:54 Assessment: 43 y F admitted for pneumonia, acute resp failure, and sepsis. RD consulted for tube feeds. Per team rounds, pt likely to remain intubated and can start tube feeds today. Propofol running at 40 mcg/kg/min providing 417 calories per day. EMR reviewed, no significant recent weight loss. K+ being replete per protocol per pharmacy. Ht: 157.48 cm Wt: 65.771 kg BMI: 26.5 UBW: 64.58 kg on 03/10/24, 67.132 kg on 10/01/23 Last BM: 03/22/24 (03/23/24 15:02) MNA: 14 Reinaldo Score: 17 Diet: 03/23/24 14:54 NPO Diet Diet Modifications: May Advance Diet as Tolerated: No Safety Tray needed?: No NPO Type: Strict Labs: RBC 2.96 X10^6/uL (4.0-5.2) L 03/24/24 04:30 Hgb 9.2 g/dL (12.0-16.0) L 03/24/24 04:30 Hct 26.7 % (36-46) L 03/24/24 04:30 Creatinine 0.58 mg/dL (0.52-1.04) 03/24/24 04:30 Lactate 3.1 mmol/L (0.7-2.1) H 03/23/24 22:09 NT-Pro-B Natriuret Pep 1350 pg/mL (<125) H 03/23/24 11:13 Nutrition Diagnosis: Inadequate oral intake r/t mechanical ventilation aeb NPO status Interventions: -Recc starting continuous enteral nutrition of 10 ml/hr of Pivot 1.5 and increasing 10 mL Q6H as tolerated until goal rate of 25 mL/hr. Add 3 protein packets of 11 g protein to feeds. Goal rate + propofol +protein packets provides 1449 kcals (100% EER) and 89 g protein (100% protein needs) Flush 100 mL Q6H. Feeds+Flush provides 1050 ml fluids. IV fluids currently providing 900 mL. Estimated fluid needs for pt is 2000 mL (30 mL/kg). -Recc monitor electrolytes and glucose for first 3 days on feeds EER: [id number] kcals (22-25 kcals/kg per sepsis and BMI) 85-100 g protein (1.3-1.5 g/kg per sepsis) Monitoring/Evaluations: start of TF, TF rate, labs, tolerance Electronically Signed by: Betty Mujica 03/24/24 11:28 Clinical Dietitian [address] [address]
[2024-03-24] MEDS: ENOXAPARIN 40 MG/0.4 ML SYRINGE SUBCUT (11:42)
[2024-03-24] MEDS: FAMOTIDINE 20 MG/2 ML VIAL IV ×2 (11:42→20:11)
--- NOTE | 2024-03-24 12:43 | CM.DANOTE ---
DCP Assessment Note: Pt is a 43yo female, resident of [facility], is admitted for pneumonia and shortness of breath. Pt lives in a house with her partner and their three children. Pt's Primary Care Provider is Dr. Vicki Maloney and insurance is [employer] and Medicaid. Reviewed chart and team rounds for pt's medical status and initial discharge needs. Per hosptialist, prognosis is guarded and pt will need a few more days on vent as well as enteral feeding. DCP met w/patient at bedside; patient is currently ventilated. Present in the room is pt's partner, Jj, DCP introduced self and role. DCP spoke with pt's partner who confirmed living situation. DCP discussed that pt's plan of care is still evolving and that DCP team is following for any discharge needs. Per partner, no needs identified other than possible medical transport upon discharge for follow up appointments, DCP discussed enrolling pt in Medicaid transport when appropriate. Plan: Plan of care evolving, CM team will follow closely for coordination of discharge plans. ERICKSON [place] Discharge Planning/Care Management CM Discharge Assessment Start: 03/24/24 12:33 Freq: Status: Active Protocol: Document 03/24/24 12:33 MW (Rec: 03/24/24 12:43 MW [id number]) Discharge Planning Assessment Assigned Map And Chart Mounter EMMA Kang DPOA/Assigned Designee Name Jj Gonzales, Life Partner (12 years) Contact Information [phone] Advance Directives? No History Provided By Significant Other,Medical Record Has Patient been admitted in last 30 No days? Prior Living Arrangements House Household Members spouse,children Comment Daughters - 9yo and 6yo [place] - 20yo Type of transporation used prior to Relies on Others admit Independent with ADL's Yes Is patient alert and oriented? No Caregiver for Another Yes: 9 and 6yo daughters Whiteboard Updated in Patient Room with No name and ext. # of Map And Chart Mounter Comment [phone] Review Status In Process Please Provide Date Initial DC 03/24/24 Assessment Was Performed Next Review Type Continued Stay Review
--- NOTE | 2024-03-24 14:33 | PM.PN.EICU ---
Subjective Subjective IF CAMERA ACTIVATED, patient seen via real-time interactive audiovisual communication: Camera activated Consent obtained for tele-meteorology instructor care: Yes Patient Location: ICU Provider location (State): [place] Other participants/roles: rn Interval history: pt remians intubated and sedated, on high vent requirements. Current Medications Current Medications Medications: Home Medications tamsulosin 0.4 mg capsule (Flomax) 0.8 mg (2 x 0.4 mg) PO DAILY #180 caps 07/23/23 [Rx Confirmed 03/10/24] fluoxetine 40 mg capsule 40 mg PO QAM #90 caps 12/06/23 [Rx Confirmed 03/10/24] gabapentin 300 mg capsule 300 mg PO BEDTIME #90 caps 12/10/23 [Rx Confirmed 03/10/24] amitriptyline 25 mg tablet 25 mg PO BEDTIME 01/20/24 [History Confirmed 03/10/24] buprenorphine 12 mg-naloxone 3 mg sublingual film (Suboxone) See Rx Instructions .Route .COMPLEX #60 film 02/03/24 [Rx Confirmed 03/10/24] methylphenidate HCl 27 mg tablet,extended release 24 hr (Concerta) 27 mg PO DAILY #30 tabs 03/10/24 [Rx Confirmed 03/10/24] Visit Medications (administered) Generic Name Dose Route Start Last Admin Trade Name Alexq PRN Reason Stop Dose Admin Albuterol/Ipratropium 3 ml 03/23/24 19:00 03/24/24 11:38 Albuterol/Ipratropium 3 Ml Ampul INH 3 ml [id number] CELY Administration Enoxaparin Sodium 40 mg 03/23/24 15:00 03/24/24 11:42 Enoxaparin 40 Mg/0.4 Ml Syringe SUBCUT 40 mg DAILY CELY Administration Famotidine 20 mg 03/24/24 09:00 03/24/24 11:42 Famotidine 20 Mg/2 Ml Vial IV 20 mg BID CELY Administration Dextrose/Sodium Chloride 1,000 mls @ 50 mls/hr 03/23/24 15:00 03/23/24 19:45 Dextrose 5%-0.45% Ns IV 50 mls/hr CONT CELY Administration Azithromycin 500 mg/ Dextrose 250 mls @ 250 mls/hr 03/23/24 15:30 03/24/24 01:41 IV Not Given Q24H CELY Fentanyl 1,000 mcg/ Dextrose 250 mls @ 11.51 mls/hr 03/23/24 18:00 03/24/24 10:25 IV 0.9 mcg/kg/hr TITRATE CELY 14.798 mls/hr Administration Protocol 0.7 MCG/KG/HR Propofol 1,000 mg in 100 mls @ 19.731 mls/hr 03/23/24 18:15 03/24/24 14:20 Propofol IV 40 mcg/kg/min TITRATE CELY 15.785 mls/hr Administration Protocol 50 MCG/KG/MIN Midazolam HCl 50 mg/ Dextrose 50 mls @ 1.315 mls/hr 03/23/24 18:32 03/23/24 18:41 IV 0.02 mg/kg/hr TITRATE PRN 1.315 mls/hr Agitation Administration Protocol 0.02 MG/KG/HR NOREPINEPHRINE BITARTRATE/D5W 4 mg in 250 mls @ 24.664 mls/hr 03/23/24 18:33 03/23/24 22:00 Levophed IV 0 mcg/kg/min TITRATE CELY 0 mls/hr Titration Protocol 0.1 MCG/KG/MIN Piperacillin Sod/Tazobactam 100 mls @ 25 mls/hr 03/23/24 19:00 03/24/24 11:45 Sod 3.375 gm/ Sodium Chloride IV 25 mls/hr Q8H CELY Administration Objective Ventilator Parameters: Ventilator Settings FiO2 80 RT Vent Frequency 21 Ventilator Tidal Volume 390 Exhaled Positive End Expiratory 9 Pressure Inspiratory Phase Time 0.90 I:E Ratio 1.28 Patient Position HOB >= 30 degrees Labs 03/24/24 04:30 03/24/24 04:30 Labs: Laboratory Results - last 24 hr 03/23/24 03/23/24 03/23/24 11:13 11:17 14:40 WBC RBC Hgb Hct MCV MCH MCHC RDW Plt Count Neut % (Auto) Lymph % (Auto) [place] % (Auto) Eos % (Auto) Baso % (Auto) Neut # (Auto) Lymph # (Auto) [place] # (Auto) Eos # (Auto) Baso # (Auto) ABG Sample Site ABG pH ABG pCO2 ABG pO2 ABG HCO3 ABG Total CO2 ABG O2 Saturation ABG Base Excess Santi Test Respiration Rate O2 Delivery Device Mode of Support FiO2 % 70 PEEP or CPAP Sodium Potassium Chloride Carbon Dioxide BUN Creatinine Estimated GFR BUN/Creatinine Ratio Glucose Lactate Calcium Magnesium Urine Color Urine Appearance Urine pH Ur Specific [place] Urine Protein Urine Glucose (UA) Urine Ketones Urine Occult Blood Urine Nitrate Urine Bilirubin Urine Urobilinogen Ur Leukocyte Esterase Urine RBC Urine WBC Ur Squamous Epith Cells Urine Bacteria Ur Culture Indicated? Vol Urine Centrifuged Nasal Screen MRSA (PCR) Not detected A.calcoaceticus-baumannii cmplx PCR Not detected Bacteroides fragilis Not detected Jaclyn albicans (PCR) Not detected Jaclyn auris (PCR) Not detected C. glabrata (PCR) Not detected C. krusei (PCR) Not detected C. parapsilosis (PCR) Not detected C. tropicalis (PCR) Not detected C. neoform/gattii (PCR) Not detected Enterobacterales (PCR) Not detected E. cloacae complex PCR Not detected Enterococc faecalis PCR Not detected Enterococc faecium PCR Not detected E. coli (PCR) Not detected H. influenzae (PCR) Not detected HIV 1&2 Ab/P24 Ag 4thGn Klebsiella aerogenes (PCR) Not detected Klebsiella oxytoca PCR Not detected Klebsiella pneumoniae Not detected List. monocytogenes PCR Not detected N. meningitidis (PCR) Not detected Proteus species (PCR) Not detected Salmonella spp. (PCR) Not detected Serratia marcescens PCR Not detected Staphylococcus sp PCR Not detected Staph aureus (PCR) Not detected mecA/C & MREJ Resist Gene Not applicable mecA/C-Methicil Resis Gene Not applicable mcr-1 Colistin Res Gene PCR Not applicable Staph epidermidis (PCR) Not detected Staph lugdunensis PCR Not detected S. maltophilia (PCR) Not detected Streptococcus sp PCR Detected Group A Strep (PCR) Not detected Strep agalactiae (PCR) Not detected Strep pneumoniae (PCR) Detected P. aeruginosa (PCR) Not detected Josephine/B-Vanco Res Genes Not applicable blaIMP Car res Gene PCR Not applicable KPC-Carbap Res Gene PCR Not applicable blaNDM Car Res Gene PCR Not applicable OXA-48 Carbapenem Resis Gene (PCR) Not applicable blaVIM Car Res Gene PCR Not applicable CTX-M Gene Resistance (PCR) Not applicable 03/23/24 03/23/24 03/23/24 17:07 18:43 20:15 WBC RBC Hgb Hct MCV MCH MCHC RDW Plt Count Neut % (Auto) Lymph % (Auto) [place] % (Auto) Eos % (Auto) Baso % (Auto) Neut # (Auto) Lymph # (Auto) [place] # (Auto) Eos # (Auto) Baso # (Auto) ABG Sample Site ABG pH 7.38 ABG pCO2 38.5 ABG pO2 65 L ABG HCO3 23 ABG Total CO2 22 L ABG O2 Saturation 92 L ABG Base Excess -2.4 L Santi Test Respiration Rate O2 Delivery Device High flow vannesa cannul Mode of Support FiO2 % 100 % PEEP or CPAP Sodium Potassium Chloride Carbon Dioxide BUN Creatinine Estimated GFR BUN/Creatinine Ratio Glucose Lactate 2.9 H Calcium Magnesium Urine Color Yellow Urine Appearance Clear Urine pH 6.0 Ur Specific [place] 1.010 Urine Protein 1+ H Urine Glucose (UA) Negative Urine Ketones Negative Urine Occult Blood Trace-intact Urine Nitrate Negative Urine Bilirubin Negative Urine Urobilinogen 0.2 Ur Leukocyte Esterase Negative Urine RBC 0-1/hpf Urine WBC 0-1/hpf Ur Squamous Epith Cells 0-1 /hpf Urine Bacteria None seen Ur Culture Indicated? Cult not indicated Vol Urine Centrifuged 10ml (spun) Nasal Screen MRSA (PCR) A.calcoaceticus-baumannii cmplx PCR Bacteroides fragilis Jaclyn albicans (PCR) Jaclyn auris (PCR) C. glabrata (PCR) C. krusei (PCR) C. parapsilosis (PCR) C. tropicalis (PCR) C. neoform/gattii (PCR) Enterobacterales (PCR) E. cloacae complex PCR Enterococc faecalis PCR Enterococc faecium PCR E. coli (PCR) H. influenzae (PCR) HIV 1&2 Ab/P24 Ag 4thGn Negative Klebsiella aerogenes (PCR) Klebsiella oxytoca PCR Klebsiella pneumoniae List. monocytogenes PCR N. meningitidis (PCR) Proteus species (PCR) Salmonella spp. (PCR) Serratia marcescens PCR Staphylococcus sp PCR Staph aureus (PCR) mecA/C & MREJ Resist Gene mecA/C-Methicil Resis Gene mcr-1 Colistin Res Gene PCR Staph epidermidis (PCR) Staph lugdunensis PCR S. maltophilia (PCR) Streptococcus sp PCR Group A Strep (PCR) Strep agalactiae (PCR) Strep pneumoniae (PCR) P. aeruginosa (PCR) Josephine/B-Vanco Res Genes blaIMP Car res Gene PCR KPC-Carbap Res Gene PCR blaNDM Car Res Gene PCR OXA-48 Carbapenem Resis Gene (PCR) blaVIM Car Res Gene PCR CTX-M Gene Resistance (PCR) 03/23/24 03/24/24 03/24/24 22:09 04:30 10:15 WBC 10.4 RBC 2.96 L Hgb 9.2 L Hct 26.7 L MCV 90.2 MCH 31.2 MCHC 34.6 RDW 15.1 H Plt Count 248 Neut % (Auto) 93.1 H Lymph % (Auto) 5.0 L [place] % (Auto) 1.3 L Eos % (Auto) 0.6 L Baso % (Auto) 0.0 Neut # (Auto) 9700 H Lymph # (Auto) 500 L [place] # (Auto) 100 Eos # (Auto) 100 Baso # (Auto) 0 ABG Sample Site ABG pH 7.45 ABG pCO2 38.0 ABG pO2 ABG HCO3 26 ABG Total CO2 26 ABG O2 Saturation ABG Base Excess 2.1 Santi Test Respiration Rate 20 O2 Delivery Device Adult ventilator Mode of Support Assist cont ventilat FiO2 % 90.0 % PEEP or CPAP 9 Sodium 136 L Potassium 3.1 L Chloride 105 Carbon Dioxide 25 BUN 11 Creatinine 0.58 Estimated GFR > 60 BUN/Creatinine Ratio 19.0 Glucose 107 H Lactate 3.1 H Calcium 8.1 L Magnesium 2.3 Urine Color Urine Appearance Urine pH Ur Specific [place] Urine Protein Urine Glucose (UA) Urine Ketones Urine Occult Blood Urine Nitrate Urine Bilirubin Urine Urobilinogen Ur Leukocyte Esterase Urine RBC Urine WBC Ur Squamous Epith Cells Urine Bacteria Ur Culture Indicated? Vol Urine Centrifuged Nasal Screen MRSA (PCR) A.calcoaceticus-baumannii cmplx PCR Bacteroides fragilis Jaclyn albicans (PCR) Jaclyn auris (PCR) C. glabrata (PCR) C. krusei (PCR) C. parapsilosis (PCR) C. tropicalis (PCR) C. neoform/gattii (PCR) Enterobacterales (PCR) E. cloacae complex PCR Enterococc faecalis PCR Enterococc faecium PCR E. coli (PCR) H. influenzae (PCR) HIV 1&2 Ab/P24 Ag 4thGn Klebsiella aerogenes (PCR) Klebsiella oxytoca PCR Klebsiella pneumoniae List. monocytogenes PCR N. meningitidis (PCR) Proteus species (PCR) Salmonella spp. (PCR) Serratia marcescens PCR Staphylococcus sp PCR Staph aureus (PCR) mecA/C & MREJ Resist Gene mecA/C-Methicil Resis Gene mcr-1 Colistin Res Gene PCR Staph epidermidis (PCR) Staph lugdunensis PCR S. maltophilia (PCR) Streptococcus sp PCR Group A Strep (PCR) Strep agalactiae (PCR) Strep pneumoniae (PCR) P. aeruginosa (PCR) Josephine/B-Vanco Res Genes blaIMP Car res Gene PCR KPC-Carbap Res Gene PCR blaNDM Car Res Gene PCR OXA-48 Carbapenem Resis Gene (PCR) blaVIM Car Res Gene PCR CTX-M Gene Resistance (PCR) 03/24/24 10:21 WBC RBC Hgb Hct MCV MCH MCHC RDW Plt Count Neut % (Auto) Lymph % (Auto) [place] % (Auto) Eos % (Auto) Baso % (Auto) Neut # (Auto) Lymph # (Auto) [place] # (Auto) Eos # (Auto) Baso # (Auto) ABG Sample Site Right brachial ABG pH 7.43 ABG pCO2 39.0 ABG pO2 114 H ABG HCO3 26 ABG Total CO2 26 ABG O2 Saturation 99 ABG Base Excess 1.3 Santi Test N/a Respiration Rate 20 O2 Delivery Device Mode of Support Assist cont ventilat FiO2 % 90.0 % PEEP or CPAP 9 Sodium Potassium Chloride Carbon Dioxide BUN Creatinine Estimated GFR BUN/Creatinine Ratio Glucose Lactate Calcium Magnesium Urine Color Urine Appearance Urine pH Ur Specific [place] Urine Protein Urine Glucose (UA) Urine Ketones Urine Occult Blood Urine Nitrate Urine Bilirubin Urine Urobilinogen Ur Leukocyte Esterase Urine RBC Urine WBC Ur Squamous Epith Cells Urine Bacteria Ur Culture Indicated? Vol Urine Centrifuged Nasal Screen MRSA (PCR) A.calcoaceticus-baumannii cmplx PCR Bacteroides fragilis Jaclyn albicans (PCR) Jaclyn auris (PCR) C. glabrata (PCR) C. krusei (PCR) C. parapsilosis (PCR) C. tropicalis (PCR) C. neoform/gattii (PCR) Enterobacterales (PCR) E. cloacae complex PCR Enterococc faecalis PCR Enterococc faecium PCR E. coli (PCR) H. influenzae (PCR) HIV 1&2 Ab/P24 Ag 4thGn Klebsiella aerogenes (PCR) Klebsiella oxytoca PCR Klebsiella pneumoniae List. monocytogenes PCR N. meningitidis (PCR) Proteus species (PCR) Salmonella spp. (PCR) Serratia marcescens PCR Staphylococcus sp PCR Staph aureus (PCR) mecA/C & MREJ Resist Gene mecA/C-Methicil Resis Gene mcr-1 Colistin Res Gene PCR Staph epidermidis (PCR) Staph lugdunensis PCR S. maltophilia (PCR) Streptococcus sp PCR Group A Strep (PCR) Strep agalactiae (PCR) Strep pneumoniae (PCR) P. aeruginosa (PCR) Josephine/B-Vanco Res Genes blaIMP Car res Gene PCR KPC-Carbap Res Gene PCR blaNDM Car Res Gene PCR OXA-48 Carbapenem Resis Gene (PCR) blaVIM Car Res Gene PCR CTX-M Gene Resistance (PCR) Exam Vital Signs (past 8 hours): - 03/24/24 07:00 03/24/24 07:00 03/24/24 07:00 Temperature 97.7 F Pulse Rate 97 H Respiratory Rate 24 Blood Pressure 95/54 L Pulse Oximetry 97 03/24/24 07:30 03/24/24 07:30 03/24/24 07:46 Temperature Pulse Rate 96 H 110 H Respiratory Rate 23 20 Blood Pressure 99/58 L Pulse Oximetry 98 98 03/24/24 08:00 03/24/24 08:00 03/24/24 08:00 Temperature 98.2 F Pulse Rate 96 H Respiratory Rate 34 H Blood Pressure 100/61 Pulse Oximetry 86 L 03/24/24 08:30 03/24/24 08:30 03/24/24 09:00 Temperature Pulse Rate 103 H Respiratory Rate 23 Blood Pressure 100/56 L 94/50 L Pulse Oximetry 96 03/24/24 09:00 03/24/24 09:30 03/24/24 09:30 Temperature Pulse Rate 101 H 98 H Respiratory Rate 22 23 Blood Pressure 95/53 L Pulse Oximetry 96 97 03/24/24 10:00 03/24/24 10:00 03/24/24 10:00 Temperature 97.8 F Pulse Rate 96 H Respiratory Rate 22 Blood Pressure 95/52 L Pulse Oximetry 97 03/24/24 10:30 03/24/24 10:30 03/24/24 11:00 Temperature 98.0 F Pulse Rate 96 H Respiratory Rate 22 Blood Pressure 92/57 L Pulse Oximetry 95 03/24/24 11:00 03/24/24 11:00 03/24/24 11:30 Temperature Pulse Rate 94 H Respiratory Rate 21 Blood Pressure 95/53 L 97/52 L Pulse Oximetry 96 03/24/24 11:30 03/24/24 11:38 03/24/24 12:00 Temperature Pulse Rate 94 H 108 H 108 H Respiratory Rate 22 21 24 Blood Pressure Pulse Oximetry 96 95 96 03/24/24 12:00 03/24/24 12:30 03/24/24 12:30 Temperature Pulse Rate 102 H Respiratory Rate 43 H Blood Pressure 98/57 L 113/69 Pulse Oximetry 88 L 03/24/24 12:36 03/24/24 12:36 03/24/24 13:00 Temperature Pulse Rate 108 H Respiratory Rate 26 H Blood Pressure 100/58 L 106/66 Pulse Oximetry 94 03/24/24 13:00 03/24/24 13:30 03/24/24 13:30 Temperature Pulse Rate 95 H 98 H Respiratory Rate 36 H 24 Blood Pressure 95/53 L Pulse Oximetry 85 L 97 03/24/24 14:00 03/24/24 14:00 Temperature Pulse Rate 94 H Respiratory Rate 24 Blood Pressure 94/53 L Pulse Oximetry 97 Oxygen Delivery Method Mechanical Ventilation Oxygen Flow Rate 40 Narrative Exam Narrative: intubnated sedated synchronous with vent rate controlled Assessment & Plan Assessment & Plan narrative: acute hypoxmeic resp failure ?strep pna cont vent/sedation bundle LTVV trend abg map goal >65 TF trend labs on zosyn dvt ppx would increase PEEP to help lower fio2, if settings remain high we shoudl consider proning her criticval care time = 35 min, she is critally ill given severe opna requiring mech vetilaiton Time-Based Coding :: [TOTAL MINUTES] spent with patient and on the chart (including review of chart, obtaining history, exam, reviewing outside data, placing orders, documenting exam and treatment plan, and counseling patient) on [DATE].
[2024-03-24] MEDS: AZITHROMYCIN 500 MG in DEXTROSE 5% IN WATER 250 ML 250 MG IV (17:03)
[2024-03-24] MEDS: MIDAZOLAM 50 MG in DEXTROSE 5 % IN WATER 40 ML IV (18:21)
[2024-03-24] MEDS: CHLORHEXIDINE GLUCONATE 15 ML CUP PO (20:11)
--- NOTE | 2024-03-24 20:11 | PM.ICURNDS ---
- Date Patient Seen: 03/24/24 Time Patient Seen: 20:11 :: This patient was seen via real time interactive two-way audiovisual telecommunication. Note: Patient admitted for acute hypoxemia respiratory failure secondary to PNA. Resp cx pending. On cefepime and azithromycin. Sedated with propofol, fentanyl, and versed gtt. On PEEP 10 and FiO2 75%. Will continue abx and follow up cx. Titrate down FiO2 to seek goal SPO2 > 88%. D/w RT and RN at bedside.
[2024-03-25] VITALS (55 sets, daily range): BP systolic 84–142; BP diastolic 52–79; PULSE 90–109; RESP 21–35; TEMP 36.1–37.8; O2SAT 81–96
[2024-03-25] MEDS: propofoL 1,000 MG/100 ML VIAL 15.785 MG IV (02:06)
[2024-03-25] MEDS: PIPERACILLIN/TAZO 3.375 GM in SODIUM CHLORIDE 0.9% 100 ML IV ×3 (03:04→18:35)
[2024-03-25] MEDS: DEXTROSE 5%-0.45% NS 1,000 ML 50 ML IV (03:05)
[2024-03-25 05:59] LABS: BUN Creatinine Ratio 14.1 (6-22); Blood Urea Nitrogen 9 mg/dL (7-17); Calcium 8.1 mg/dL (8.4-10.2); Carbon Dioxide 26 mmol/L (22-32); Chloride 103 mmol/L (98-107); Estimated Glomerular Filt Rate > 60 mL/min (>60); Glucose 124 mg/dL (70-100); HEMOLYSIS < 15 (0-50); Potassium 3.1 mmol/L (3.4-5.1); Sodium 134 mmol/L (137-145)
--- NOTE | 2024-03-25 06:51 | PC.NURSE ---
[employer]eles[employer] Specialist Note-Patient remains on ventilator, FIO2 down to 70%, PEEP 10, TV 390, RR set at 22, overrides up to 30s at times of agitation while coughing and suction. Still desats to 70s and slow to recover. RASS -3 with propofol 35-40mcg/kg/min, Fentanyl at 0.8mcg/kg/hr, Versed at 0.02mcg/kg/hr. Tolerating TF, increased to 25ml/hr by am as ordered. SR/ST, BP low but stable, see vital trends. Tolerating soft wrist restraints.
[2024-03-25] MEDS: ALBUTEROL/IPRATROPIUM 3 ML AMPUL INH ×4 (07:25→19:05)
[2024-03-25] MEDS: CHLORHEXIDINE GLUCONATE 15 ML CUP PO (08:25)
[2024-03-25] MEDS: ENOXAPARIN 40 MG/0.4 ML SYRINGE SUBCUT (08:25)
[2024-03-25] MEDS: FAMOTIDINE 20 MG/2 ML VIAL IV ×2 (08:25→20:11)
[2024-03-25] MEDS: POTASSIUM CHLORIDE 20 MEQ/15 ML UDC 40 MEQ TUBE ×2 (08:36→14:30)
[2024-03-25] MEDS: propofoL 1,000 MG/100 ML VIAL 13.812 MG IV (08:51)
--- NOTE | 2024-03-25 08:56 | DI.RAD.S_ITS ---
PROCEDURE: XR CHEST 1V INDICATIONS: pna TECHNIQUE: One view of the chest was acquired. COMPARISON: [facility], CR, XR CHEST 1V, 03/24/2024, 5:22. FINDINGS: Surgical changes and devices: Endotracheal nasogastric tubes unchanged. Right-sided PICC line tip good position. Heart size enlarged. Moderate vascular congestion. Dense centralized pulmonary infiltrates with peripheral clearing noted. Both hemidiaphragms obscured. IMPRESSION: Cardiomegaly, moderate vascular congestion and dense worsening pulmonary infiltrates reflect pulmonary edema or infection. Approved by: Edilberto Norton M.D. on 03/25/2024 at 8:33
--- NOTE | 2024-03-25 08:59 | PM.PN.EICU ---
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 Serology + for strep PNA, Resp cx & urine strep Ag pending. On Zosyn and azithromycin. Sedated with propofol, fentanyl, and versed gtt. On PEEP 10 and FiO2 70 from 80%. Current Medications Current Medications Medications: Home Medications tamsulosin 0.4 mg capsule (Flomax) 0.8 mg (2 x 0.4 mg) PO DAILY #180 caps 07/23/23 [Rx Confirmed 03/10/24] fluoxetine 40 mg capsule 40 mg PO QAM #90 caps 12/06/23 [Rx Confirmed 03/10/24] gabapentin 300 mg capsule 300 mg PO BEDTIME #90 caps 12/10/23 [Rx Confirmed 03/10/24] amitriptyline 25 mg tablet 25 mg PO BEDTIME 01/20/24 [History Confirmed 03/10/24] buprenorphine 12 mg-naloxone 3 mg sublingual film (Suboxone) See Rx Instructions .Route .COMPLEX #60 film 02/03/24 [Rx Confirmed 03/10/24] methylphenidate HCl 27 mg tablet,extended release 24 hr (Concerta) 27 mg PO DAILY #30 tabs 03/10/24 [Rx Confirmed 03/10/24] Visit Medications (administered) Generic Name Dose Route Start Last Admin Trade Name Freq PRN Reason Stop Dose Admin Albuterol/Ipratropium 3 ml 03/23/24 19:00 03/25/24 07:25 Albuterol/Ipratropium 3 Ml Ampul INH 3 ml [id number] CELY Administration Chlorhexidine Gluconate 15 ml 03/24/24 21:00 03/25/24 08:25 Chlorhexidine Gluconate 15 Ml Cup PO 15 ml BID CELY Administration Enoxaparin Sodium 40 mg 03/23/24 15:00 03/25/24 08:25 Enoxaparin 40 Mg/0.4 Ml Syringe SUBCUT 40 mg DAILY CELY Administration Famotidine 20 mg 03/24/24 09:00 03/25/24 08:25 Famotidine 20 Mg/2 Ml Vial IV 20 mg BID CELY Administration Dextrose/Sodium Chloride 1,000 mls @ 50 mls/hr 03/23/24 15:00 03/25/24 03:05 Dextrose 5%-0.45% Ns IV 50 mls/hr CONT CELY Administration Azithromycin 500 mg/ Dextrose 250 mls @ 250 mls/hr 03/23/24 15:30 03/24/24 21:37 IV Infused Q24H CELY Infusion Fentanyl 1,000 mcg/ Dextrose 250 mls @ 11.51 mls/hr 03/23/24 18:00 03/24/24 23:33 IV 0.8 mcg/kg/hr TITRATE CELY 13.154 mls/hr Titration Protocol 0.7 MCG/KG/HR Propofol 1,000 mg in 100 mls @ 19.731 mls/hr 03/23/24 18:15 03/25/24 08:51 Propofol IV 35 mcg/kg/min TITRATE CELY 13.812 mls/hr Administration Protocol 50 MCG/KG/MIN Midazolam HCl 50 mg/ Dextrose 50 mls @ 1.315 mls/hr 03/23/24 18:32 03/24/24 18:21 IV 0.02 mg/kg/hr TITRATE PRN 1.315 mls/hr Agitation Administration Protocol 0.02 MG/KG/HR NOREPINEPHRINE BITARTRATE/D5W 4 mg in 250 mls @ 24.664 mls/hr 03/23/24 18:33 03/23/24 22:00 Levophed IV 0 mcg/kg/min TITRATE CELY 0 mls/hr Titration Protocol 0.1 MCG/KG/MIN Piperacillin Sod/Tazobactam 100 mls @ 25 mls/hr 03/23/24 19:00 03/25/24 03:04 Sod 3.375 gm/ Sodium Chloride IV 25 mls/hr Q8H CELY Administration Potassium Chloride 40 meq 03/25/24 08:15 03/25/24 08:36 Potassium Chloride 20 Meq/15 Ml Udc TUBE 03/25/24 14:16 40 meq Q6H CELY Administration Objective Ventilator Parameters: Ventilator Settings FiO2 70 RT Vent Frequency 20 Ventilator Tidal Volume 390 Exhaled Positive End Expiratory 10 Pressure Inspiratory Phase Time 0.85 I:E Ratio 1:2.4 Patient Position HOB >= 30 degrees Labs 03/24/24 04:30 03/25/24 05:00 Labs: Laboratory Results - last 24 hr 03/23/24 03/24/24 03/24/24 17:07 04:30 10:15 ABG Sample Site ABG pH 7.38 7.45 ABG pCO2 38.5 38.0 ABG pO2 65 L ABG HCO3 23 26 ABG Total CO2 22 L 26 ABG O2 Saturation 92 L ABG Base Excess -2.4 L 2.1 Santi Test Respiration Rate 20 O2 Delivery Device High flow vannesa cannul Adult ventilator Mode of Support Assist cont ventilat FiO2 % 100 % 90.0 % PEEP or CPAP 9 Sodium Potassium Chloride Carbon Dioxide BUN Creatinine Estimated GFR BUN/Creatinine Ratio Glucose Calcium Magnesium 2.3 03/24/24 03/25/24 10:21 05:00 ABG Sample Site Right brachial ABG pH 7.43 ABG pCO2 39.0 ABG pO2 114 H ABG HCO3 26 ABG Total CO2 26 ABG O2 Saturation 99 ABG Base Excess 1.3 Santi Test N/a Respiration Rate 20 O2 Delivery Device Mode of Support Assist cont ventilat FiO2 % 90.0 % PEEP or CPAP 9 Sodium 134 L Potassium 3.1 L Chloride 103 Carbon Dioxide 26 BUN 9 Creatinine 0.64 Estimated GFR > 60 BUN/Creatinine Ratio 14.1 Glucose 124 H Calcium 8.1 L Magnesium Exam Vital Signs (past 8 hours): - 03/25/24 01:00 03/25/24 01:00 03/25/24 01:30 Temperature Pulse Rate 108 H 106 H Respiratory Rate 26 H 24 Blood Pressure 95/57 L Pulse Oximetry 94 94 Oxygen Delivery Method Fraction of Inspired Oxygen 03/25/24 01:30 03/25/24 02:00 03/25/24 02:00 Temperature Pulse Rate 102 H Respiratory Rate 25 H Blood Pressure 93/54 L 94/57 L Pulse Oximetry 92 Oxygen Delivery Method Fraction of Inspired Oxygen 03/25/24 02:30 03/25/24 02:30 03/25/24 03:00 Temperature Pulse Rate 100 H Respiratory Rate 25 H Blood Pressure 91/54 L 92/55 L Pulse Oximetry 94 Oxygen Delivery Method Fraction of Inspired Oxygen 03/25/24 03:00 03/25/24 03:30 03/25/24 03:30 Temperature 99.7 F H Pulse Rate 98 H 96 H Respiratory Rate 25 H 23 Blood Pressure 89/55 L Pulse Oximetry 95 96 Oxygen Delivery Method Fraction of Inspired Oxygen 03/25/24 04:00 03/25/24 04:00 03/25/24 04:00 Temperature Pulse Rate 104 H Respiratory Rate 25 H Blood Pressure 94/59 L Pulse Oximetry 95 Oxygen Delivery Method Mechanical Ventilation Fraction of Inspired Oxygen 03/25/24 04:30 03/25/24 04:30 03/25/24 05:00 Temperature Pulse Rate 102 H Respiratory Rate 26 H Blood Pressure 96/59 L 96/58 L Pulse Oximetry 95 Oxygen Delivery Method Fraction of Inspired Oxygen 03/25/24 05:00 03/25/24 05:30 03/25/24 05:30 Temperature Pulse Rate 98 H 98 H Respiratory Rate 26 H 27 H Blood Pressure 97/60 Pulse Oximetry 94 96 Oxygen Delivery Method Fraction of Inspired Oxygen 03/25/24 06:00 03/25/24 06:00 03/25/24 06:30 Temperature Pulse Rate 96 H Respiratory Rate 24 Blood Pressure 93/56 L 92/56 L Pulse Oximetry 94 Oxygen Delivery Method Fraction of Inspired Oxygen 03/25/24 06:30 03/25/24 07:00 03/25/24 07:00 Temperature Pulse Rate 95 H 93 H Respiratory Rate 24 23 Blood Pressure 89/57 L Pulse Oximetry 95 95 Oxygen Delivery Method Fraction of Inspired Oxygen 03/25/24 07:30 03/25/24 07:30 03/25/24 07:38 Temperature Pulse Rate 94 H 100 H Respiratory Rate 24 26 H Blood Pressure 90/53 L Pulse Oximetry 94 94 Oxygen Delivery Method Mechanical Ventilation Fraction of Inspired Oxygen 70 03/25/24 08:00 03/25/24 08:00 03/25/24 08:00 Temperature 97.9 F Pulse Rate 101 H Respiratory Rate 26 H Blood Pressure 93/58 L Pulse Oximetry 94 Oxygen Delivery Method Fraction of Inspired Oxygen Fraction of Inspired Oxygen 70 SaO2/FiO2 Ratio 134 Oxygen Delivery Method Mechanical Ventilation Oxygen Flow Rate 40 Assessment & Plan Assessment & Plan narrative: Pt remains intubated on high vent sitting for acute hypoxemia respiratory failure secondary to PNA. Serology + for strep PNA, Resp cx & urine strep Ag pending. On Zosyn and azithromycin. Sedated with propofol, fentanyl, and versed gtt. On PEEP 10 and FiO2 70 from 80%. acute hypoxmeic resp failure Strep pna cont vent/sedation bundle SAT as tolerated LTVV Trend abg & CXR daily map goal >65 TF at goal trend labs on zosyn & Azithro dvt ppx Wean off Fio2 for Sat goal 92% criticval care time = 35 min, she is critally ill given severe opna requiring mech vetilaiton Time-Based Coding :: [TOTAL MINUTES] spent with patient and on the chart (including review of chart, obtaining history, exam, reviewing outside data, placing orders, documenting exam and treatment plan, and counseling patient) on [DATE].
[2024-03-25 09:50] LABS: Allen Test for ABG Passed? Positive; Base Excess ABG 0.5 mmol/L (-2-3); Blood Gas Collection Site Right Radial; Blood Gas Mode Assist Cont Ventilat; Delivery System Adult Ventilator; HCO3 ABG 25 mmol/L (23-27); Oxygen Saturation ABG 95 % (95-100); PCO2 ABG 36.7 mmHg (35-45); PEEP 10; PO2 ABG 75 mmHg (80-100); Respiratory Rate 20; TCO2 ABG 25 mmol/L (23-27); pH ABG 7.44 (7.35-7.45)
--- NOTE | 2024-03-25 10:42 | PC.NURSE ---
Per Dr Rothman and Dr Tuttle, continue with current plan of care and orders. Dr Rothman recommended being extremely careful with awakening trials due to patient's unstable condition. Patient continues to desat. down to 70-80% with significant turning and repositioning.
[2024-03-25] MEDS: ACETAMINOPHEN 325 MG TABLET 650 MG PO (12:09)
--- NOTE | 2024-03-25 14:22 | PM.PN.1 ---
Subjective Subjective Date Patient Seen: 03/25/24 Time Patient Seen: 08:00 Interval history: 43-year-old woman under the primary care of Dr. Vicki Maloney reports a 2 week history of cough, fevers, chills and shortness of breath, worsening in the last 1-2 days with significant dyspnea on exertion. She was sent to have an oxygen saturation of 80% on room air in the triage area of the emergency department. She quit smoking about 3 years ago but recently started dating nicotine, though had not done this since she became ill. 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 She denies a history of pneumonia. She has history of chronic pain and has been on Suboxone, with the last 1 month supply prescribed in November. She notes a history of chronic pelvic pain with a prior sacral fracture, though is normally ambulatory and working. No history of cancer, blood clots, heart disease, travel history or HIV risk factors. The patient experienced respiratory decompensation over the course of the afternoon with arterial blood gas on FiO2 0.7 high flow mask: PH 7.49, pCO2 28.8, PO2 60, with tachypnea, increased accessory muscle use and signs of respiratory fatigue. At this point the decision was made to intubate by this provider. The patient was intubated without incidents and placed on mechanical ventilation with low tidal volume ARDS protocol and sedation with propofol and fentanyl infusions. The tele ICU foot piece assembler is updated on the status. Interval history: The patient remains intubated, sedated on mechanical ventilation. Her night was uneventful. Team rounds are conducted with nursing, respiratory therapy, pharmacy and tele ICU physician Dr. Traore. Exam Vital Signs (past 8 hours): - 03/25/24 06:30 03/25/24 06:30 03/25/24 07:00 Temperature Pulse Rate 95 H Respiratory Rate 24 Blood Pressure 92/56 L 89/57 L Pulse Oximetry 95 Oxygen Delivery Method Fraction of Inspired Oxygen 03/25/24 07:00 03/25/24 07:30 03/25/24 07:30 Temperature Pulse Rate 93 H 94 H Respiratory Rate 23 24 Blood Pressure 90/53 L Pulse Oximetry 95 94 Oxygen Delivery Method Fraction of Inspired Oxygen 03/25/24 07:38 03/25/24 08:00 03/25/24 08:00 Temperature 97.9 F Pulse Rate 100 H Respiratory Rate 26 H Blood Pressure 93/58 L Pulse Oximetry 94 Oxygen Delivery Method Mechanical Ventilation Fraction of Inspired Oxygen 70 03/25/24 08:00 03/25/24 08:00 03/25/24 08:30 Temperature Pulse Rate 101 H Respiratory Rate 26 H Blood Pressure 92/55 L Pulse Oximetry 94 Oxygen Delivery Method Mechanical Ventilation Fraction of Inspired Oxygen 03/25/24 08:30 03/25/24 09:00 03/25/24 09:00 Temperature Pulse Rate 97 H 96 H Respiratory Rate 25 H 24 Blood Pressure 92/57 L Pulse Oximetry 94 95 Oxygen Delivery Method Fraction of Inspired Oxygen 03/25/24 09:30 03/25/24 09:30 03/25/24 10:00 Temperature Pulse Rate 96 H Respiratory Rate 26 H Blood Pressure 90/55 L 88/53 L Pulse Oximetry 94 Oxygen Delivery Method Fraction of Inspired Oxygen 03/25/24 10:00 03/25/24 10:11 03/25/24 10:30 Temperature 97.5 F L Pulse Rate 96 H Respiratory Rate 24 Blood Pressure 91/55 L Pulse Oximetry 94 Oxygen Delivery Method Fraction of Inspired Oxygen 03/25/24 10:30 03/25/24 11:00 03/25/24 11:00 Temperature Pulse Rate 96 H 95 H Respiratory Rate 24 25 H Blood Pressure 92/58 L Pulse Oximetry 95 95 Oxygen Delivery Method Fraction of Inspired Oxygen 03/25/24 11:08 03/25/24 11:30 03/25/24 11:30 Temperature 97.7 F Pulse Rate 97 H Respiratory Rate 25 H Blood Pressure 93/55 L Pulse Oximetry 95 Oxygen Delivery Method Fraction of Inspired Oxygen 03/25/24 12:00 03/25/24 12:00 03/25/24 12:00 Temperature 100.1 F H Pulse Rate 96 H Respiratory Rate 29 H Blood Pressure 100/67 Pulse Oximetry 81 L Oxygen Delivery Method Fraction of Inspired Oxygen 03/25/24 12:00 03/25/24 12:07 03/25/24 12:09 Temperature 100.1 F H Pulse Rate 104 H Respiratory Rate 27 H Blood Pressure Pulse Oximetry 95 Oxygen Delivery Method Mechanical Ventilation Mechanical Ventilation Fraction of Inspired Oxygen 70 03/25/24 12:30 03/25/24 12:30 03/25/24 12:39 Temperature 99.8 F H Pulse Rate 100 H Respiratory Rate 26 H Blood Pressure 95/56 L Pulse Oximetry 94 Oxygen Delivery Method Fraction of Inspired Oxygen 03/25/24 12:49 03/25/24 13:00 03/25/24 13:00 Temperature 99.8 F H Pulse Rate 98 H Respiratory Rate 26 H Blood Pressure 90/59 L Pulse Oximetry 94 Oxygen Delivery Method Fraction of Inspired Oxygen 03/25/24 13:53 Temperature 98.0 F Pulse Rate Respiratory Rate Blood Pressure Pulse Oximetry Oxygen Delivery Method Fraction of Inspired Oxygen Fraction of Inspired Oxygen 70 SaO2/FiO2 Ratio 135 Oxygen Delivery Method Mechanical Ventilation Oxygen Flow Rate 40 Narrative Exam Narrative: GENERAL: This is a well-nourished, well-developed patient, intubated, sedated, endotracheal and orogastric tubes in place, [place] catheterized, PICC line EYES: Pupils equal round and reactive. Extraocular motions intact. No scleral icterus. No injection or drainage. ENT: Mucous membranes pink and moist. NECK: Trachea midline. No JVD, bruits or lymphadenopathy. Supple, nontender, no meningeal signs. CARDIOVASCULAR: Regular rate and rhythm without murmurs, gallops, or rubs. RESPIRATORY: Scattered bilateral crackles particularly on the right side and left base, tachypneic, intercostal accessory muscle use. GASTROINTESTINAL: Abdomen soft, non-tender, nondistended. EXTREMITIES: No clubbing, cyanosis, or edema. NEUROLOGIC: Alert, oriented, speech fluent, full upper and lower motor strength, no focal deficits evident. DERMATOLOGIC: No rashes or skin lesions. Const Other: chronically ill-appearing female Resp Effort & Inspection: other (tachypneic in low 20s, saturating high 80s-low 90s on HFNC 70% 40 L/min) Objective Imaging Chest x-ray: Radiologist's impression: Cardiomegaly, moderate vascular congestion and dense worsening pulmonary infiltrates reflect pulmonary edema or infection. Labs 03/24/24 04:30 03/25/24 05:00 Labs: Laboratory Results - last 24 hr 03/25/24 03/25/24 05:00 09:47 ABG Sample Site Right radial ABG pH 7.44 ABG pCO2 36.7 ABG pO2 75 L ABG HCO3 25 ABG Total CO2 25 ABG O2 Saturation 95 ABG Base Excess 0.5 Santi Test Positive Respiration Rate 20 O2 Delivery Device Adult ventilator Mode of Support Assist cont ventilat FiO2 % 70.0 % PEEP or CPAP 10 Sodium 134 L Potassium 3.1 L Chloride 103 Carbon Dioxide 26 BUN 9 Creatinine 0.64 Estimated GFR > 60 BUN/Creatinine Ratio 14.1 Glucose 124 H Calcium 8.1 L PFSH Medical History ADD (attention deficit disorder) Closed minimally displaced zone III fracture of sacrum with delayed healing Bilateral knee pain COVID-19 Depression Anxiety Encounter for routine gynecological examination (06/05/22) Encounter for wellness examination in adult (11/07/20) Interstitial cystitis (2019) Seizure disorder (2008) Psoriasis Headache Fractures Chronic back pain Cervical spine disease Ovarian cyst History of urinary incontinence Surgical History [place] teeth extracted Anesthesia History of neck surgery (~2010) History of inguinal hernia repair History of umbilical hernia repair Family History Grandfather History of heart disease Social History household members: spouse and children Smoking Status: Former smoker alcohol intake: former Assessment & Plan Assessment & Plan narrative: 1. Multifocal pneumonia, community-acquired due to Streptococcus pneumoniae, cultures also demonstrating Gram-negative bacilli, group B Strep and Staphylococcus aureus. Cannot rule out underlying atypical or underlying immunocompromise. Legionella pending. Continue IV vancomycin, azithromycin and cefepime pending final cultures. Negative HIV. Prognosis remains guarded. Transfer to tertiary care as advised by teleICU. 2. Acute hypoxemic respiratory failure due to 1. Continue intubation and mechanical ventilation with ARDS protocol. Tele ICU consultation appreciated. 3. Pneumococcal septicemia due to numbers 1 and 2. 4. Chronic pain syndrome. She has apparently had intermittent use of Suboxone over the past few months. She was last prescribed #60 on December 02 2023 by her primary care provider. Clarify further. Hold Suboxone at this point. Provide IV hydromorphone as needed. 5. Depression. Resume routine antihypertensives when reconciled and clinically stable. 6. IV access: PICC line given poor peripheral IV access per nursing. 7. Dietary: Tube feeds started 8. DVT prophylaxis. Administer low-dose Lovenox. 9. Code status: Full code. Plan: -transfer to tertiary care as advised by teleICU -ARDS protocol -add vancomycin, r/o MRSA -continue Zosyn and azithromycin IV -continue tube feed -subcutaneous Lovenox -full code Time-Based Coding :: [TOTAL MINUTES] spent with patient and on the chart (including review of chart, obtaining history, exam, reviewing outside data, placing orders, documenting exam and treatment plan, and counseling patient) on [DATE]. PROFEE Charge codes Critical Care: 18979
[2024-03-25] MEDS: FUROSEMIDE 40 MG/4 ML VIAL IV (14:30)
--- NOTE | 2024-03-25 14:31 | PM.EICU.INT ---
Teleintensivist Intervention Date/Time Was camera activated?: No Issue(s) Addressed Issue(s): Sepsis Other:: worsening CXR Intervention(s) :: Recommended transfer to a higher level of care , preferrable a place where ECMO is offered but at least where Bronch can be done if needed. Staph & strep in the sputum, rec adding Vanc. Plan discussed with: Physician/provider and Nurse
[2024-03-25] MEDS: propofoL 1,000 MG/100 ML VIAL 11.839 MG IV ×2 (15:16→20:11)
[2024-03-25] MEDS: VANCOMYCIN 1,500 MG/300 ML PIGGYBACK 200 MG IV (15:22)
--- NOTE | 2024-03-25 15:46 | CM.DPC ---
DCP Hospital Transfer Per MD, pt remains intubated and sedated and per TeleIntensivist/Casino Attendant, recommending hospital transfer for higher level of care needs. Per RN, [facility] has accepted and broadband installer working on coordinating transfer. EMMA Mckeon
--- NOTE | 2024-03-25 16:28 | PM.DS.1 ---
History of Present Illness History of Present Illness Date Patient Seen: 03/25/24 Time Patient Seen: 08:00 Chief complaint: Might have Covid. Narrative: 43-year-old woman under the primary care of Dr. Vicki Maloney reports a 2 week history of cough, fevers, chills and shortness of breath, worsening in the last 1-2 days with significant dyspnea on exertion. She was sent to have an oxygen saturation of 80% on room air in the triage area of the emergency department. She quit smoking about 3 years ago but recently started dating nicotine, though had not done this since she became ill. 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 She denies a history of pneumonia. She has history of chronic pain and has been on Suboxone, with the last 1 month supply prescribed in November. She notes a history of chronic pelvic pain with a prior sacral fracture, though is normally ambulatory and working. No history of cancer, blood clots, heart disease, travel history or HIV risk factors. Discharge Providers Provider Date of admission: 03/23/24 13:54 Discharge Date: 03/25/24 Primary care physician: Vicki Johnson DO Consults: 03/23/24 14:59 Consult to Discharge Planning Routine Comment: 03/23/24 15:17 Consult to Tele-director of casino marketing Routine Comment: Consulting Provider: Robyn Tele-intensivists Reason for consultation: [employer] Has provider been notified: Yes 03/23/24 16:44 Consult to Tele-director of casino marketing Routine Comment: Consulting Provider: [employer] Tele-intensivists Reason for consultation: [employer] 03/24/24 08:12 Consult to Dietitian, Adult Routine Comment: Reason For Exam: tube feeds Discharge provider: Rashel Tuttle MD Summary Hospital Course Discharge Diagnosis: 1. Multifocal pneumonia, community-acquired due to Streptococcus pneumoniae, cultures also demonstrating Gram-negative bacilli, group B Strep and Staphylococcus aureus. 2. Acute hypoxemic respiratory failure due to 1. 3. Pneumococcal septicemia due to numbers 1 and 2, without hemodynamic compromise. 4. Positive sputum cultures for Staphylococcus aureus, Gram-negative bacilli and group B strep 5. Chronic pain syndrome with remote history of pelvic fracture repair. 6. Depression. Hospital Course: The patient was admitted to the intensive care unit and monitored on high-flow oxygen, treated for community-acquired pneumonia with broad-spectrum antibiotic coverage. Her serum antigen panel returned showing Streptococcus pneumonia which was subsequently confirmed in 1 of 2 blood cultures, and she was treated with IV Zosyn and azithromycin pending Legionella DFA. It was apparent from admission that due to her severe bilateral pulmonary infiltrates that she would likely decline and therefore was intubated placed on mechanical ventilation on the afternoon of admission. She initially required high-level oxygen support with FiO2 1.0 but ultimately decreased to FiO2 0.7 on the 2nd hospital day on assist control 20, tidal volume 390, PEEP +10 with oxygen saturations in the low 90s% range, arterial blood gas pH 7.44, pCO2 36.7, PO2 75, 95% oxygen saturation, with chest x-ray on the day of discharge showing increasing pulmonary infiltrates worrisome for progressive ARDS. In consultation with Dr. Young of the tele ICU program transfer to a tertiary level care facility for bronchoscopic evaluation and with possible availability of ECMO was recommended. Arrangements have been made with Dr. Dl Diaz of the medical ICU at [facility] in conjunction with the ECMO attending to receive the patient. The patient's is updated by phone and expresses agreement with this plan of care. At the time of this dictation arrangements are pending bed availability and transportation coordination by air ambulance. 2 hours of critical care time is spent Time Spent with Patient Time spent: Greater than 30 minutes Exam Vital Signs (past 8 hours): - 03/25/24 08:30 03/25/24 08:30 03/25/24 09:00 Temperature Pulse Rate 97 H Respiratory Rate 25 H Blood Pressure 92/55 L 92/57 L Pulse Oximetry 94 Oxygen Delivery Method Fraction of Inspired Oxygen 03/25/24 09:00 03/25/24 09:30 03/25/24 09:30 Temperature Pulse Rate 96 H 96 H Respiratory Rate 24 26 H Blood Pressure 90/55 L Pulse Oximetry 95 94 Oxygen Delivery Method Fraction of Inspired Oxygen 03/25/24 10:00 03/25/24 10:00 03/25/24 10:11 Temperature 97.5 F L Pulse Rate 96 H Respiratory Rate 24 Blood Pressure 88/53 L Pulse Oximetry 94 Oxygen Delivery Method Fraction of Inspired Oxygen 03/25/24 10:30 03/25/24 10:30 03/25/24 11:00 Temperature Pulse Rate 96 H Respiratory Rate 24 Blood Pressure 91/55 L 92/58 L Pulse Oximetry 95 Oxygen Delivery Method Fraction of Inspired Oxygen 03/25/24 11:00 03/25/24 11:08 03/25/24 11:30 Temperature 97.7 F Pulse Rate 95 H 97 H Respiratory Rate 25 H 25 H Blood Pressure Pulse Oximetry 95 95 Oxygen Delivery Method Fraction of Inspired Oxygen 03/25/24 11:30 03/25/24 12:00 03/25/24 12:00 Temperature 100.1 F H Pulse Rate Respiratory Rate Blood Pressure 93/55 L 100/67 Pulse Oximetry Oxygen Delivery Method Fraction of Inspired Oxygen 03/25/24 12:00 03/25/24 12:00 03/25/24 12:07 Temperature Pulse Rate 96 H 104 H Respiratory Rate 29 H 27 H Blood Pressure Pulse Oximetry 81 L 95 Oxygen Delivery Method Mechanical Ventilation Mechanical Ventilation Fraction of Inspired Oxygen 70 03/25/24 12:09 03/25/24 12:30 03/25/24 12:30 Temperature 100.1 F H Pulse Rate 100 H Respiratory Rate 26 H Blood Pressure 95/56 L Pulse Oximetry 94 Oxygen Delivery Method Fraction of Inspired Oxygen 03/25/24 12:39 03/25/24 12:49 03/25/24 13:00 Temperature 99.8 F H 99.8 F H Pulse Rate Respiratory Rate Blood Pressure 90/59 L Pulse Oximetry Oxygen Delivery Method Fraction of Inspired Oxygen 03/25/24 13:00 03/25/24 13:30 03/25/24 13:30 Temperature Pulse Rate 98 H 96 H Respiratory Rate 26 H 25 H Blood Pressure 88/57 L Pulse Oximetry 94 95 Oxygen Delivery Method Fraction of Inspired Oxygen 03/25/24 13:53 03/25/24 14:00 03/25/24 14:00 Temperature 98.0 F Pulse Rate 93 H Respiratory Rate 24 Blood Pressure 84/55 L Pulse Oximetry 96 Oxygen Delivery Method Fraction of Inspired Oxygen 03/25/24 14:30 03/25/24 14:30 03/25/24 15:00 Temperature Pulse Rate 92 H Respiratory Rate 24 Blood Pressure 86/59 L 99/61 Pulse Oximetry 95 Oxygen Delivery Method Fraction of Inspired Oxygen 03/25/24 15:00 03/25/24 15:30 03/25/24 15:30 Temperature Pulse Rate 90 96 H Respiratory Rate 24 26 H Blood Pressure 93/58 L Pulse Oximetry 96 96 Oxygen Delivery Method Fraction of Inspired Oxygen 03/25/24 15:31 03/25/24 16:00 Temperature 97.0 F L Pulse Rate 95 H Respiratory Rate 24 Blood Pressure Pulse Oximetry 95 Oxygen Delivery Method Mechanical Ventilation Fraction of Inspired Oxygen 70 Fraction of Inspired Oxygen 70 SaO2/FiO2 Ratio 135 Oxygen Delivery Method Mechanical Ventilation Oxygen Flow Rate 40 Objective Labs 03/24/24 04:30 03/25/24 05:00 Labs: Laboratory Results - last 24 hr 03/25/24 03/25/24 05:00 09:47 ABG Sample Site Right radial ABG pH 7.44 ABG pCO2 36.7 ABG pO2 75 L ABG HCO3 25 ABG Total CO2 25 ABG O2 Saturation 95 ABG Base Excess 0.5 Santi Test Positive Respiration Rate 20 O2 Delivery Device Adult ventilator Mode of Support Assist cont ventilat FiO2 % 70.0 % PEEP or CPAP 10 Sodium 134 L Potassium 3.1 L Chloride 103 Carbon Dioxide 26 BUN 9 Creatinine 0.64 Estimated GFR > 60 BUN/Creatinine Ratio 14.1 Glucose 124 H Calcium 8.1 L PFSH Medical History ADD (attention deficit disorder) Closed minimally displaced zone III fracture of sacrum with delayed healing Bilateral knee pain COVID-19 Depression Anxiety Encounter for routine gynecological examination (06/05/22) Encounter for wellness examination in adult (11/07/20) Interstitial cystitis (2019) Seizure disorder (2008) Psoriasis Headache Fractures Chronic back pain Cervical spine disease Ovarian cyst History of urinary incontinence Surgical History [place] teeth extracted Anesthesia History of neck surgery (~2010) History of inguinal hernia repair History of umbilical hernia repair Family History Grandfather History of heart disease Social History household members: spouse and children Smoking Status: Former smoker alcohol intake: former Discharge Plan Discharge Plan Patient Disposition: [facility] Other facility: [facility] Under care of provider: Dr. Dl Diaz Provider Discharge Comment: The patient will be transferred on current medications Discharge orders & Medications Prescriptions: No Action tamsulosin [Flomax] 0.4 mg capsule 0.8 mg PO DAILY Qty: 180 3RF fluoxetine 40 mg capsule 40 mg PO QAM Qty: 90 3RF gabapentin 300 mg capsule 300 mg PO BEDTIME Qty: 90 3RF Rx Instructions: Take 1 cap at bedtime daily buprenorphine-naloxone [Suboxone] 12-3 mg film See Rx Instructions .ROUTE .COMPLEX Qty: 60 3RF Rx Instructions: Dissolve 2 films under tongue daily; amitriptyline 25 mg tablet 25 mg PO BEDTIME methylphenidate HCl [Concerta] 27 mg tablet extended release 24hr 27 mg PO DAILY Qty: 30 0RF Follow up/Referrals: Vicki Johnson DO [Primary Care Provider] - Discharge Data Primary Care Provider: Vicki Johnson
[2024-03-25] MEDS: AZITHROMYCIN 500 MG in DEXTROSE 5% IN WATER 250 ML 250 MG IV (16:57)
[2024-03-25] MEDS: NOREPINEPHRINE BITARTRATE/D5W 4 MG/250 ML PLAST..BAG 24.664 MG IV (18:49)
[2024-03-25] MEDS: fentaNYL 1,000 MCG in DEXTROSE 5% IN WATER 230 ML 9.866 MCG IV (20:11)
--- NOTE | 2024-03-25 21:06 | PC.NURSE ---
Patient left in stable condition at 2049 with EMS transport to . Levophed at 0.05mcg/kg/min, propofol at 30mcg/kg/min, Fentanyl at 0.6mcg/kg/hr. FIO2 70% TV 350 PEEP 10 RR 20, patient has RR up to 30. All belongings placed in bag, sent with patient. Report called to by previous RN.
[2024-03-27 11:36] LABS: Legionella pneumo Antigen Negative (Negative)
== END 2024-03-25 20:50 | disposition short-term general hospital (02) | DRG 720 ==
LOC: ED 13:51 → AC 13:55 → ICU 14:06
PROVIDERS: Internal Medicine Critical Care Medicine; Admitting Provider Internal Medicine; Emergency Provider Emergency Medicine; Family Provider Nurse Practitioner; PCP Family Medicine; Visit Provider Internal Medicine
DX: A40.3 Sepsis due to Streptococcus pneumoniae (principal); J96.01 Acute respiratory failure with hypoxia; J13 Pneumonia due to Streptococcus pneumoniae; G89.4 Chronic pain syndrome; F32.A Depression, unspecified; F11.20 Opioid dependence, uncomplicated; B95.1 Streptococcus, group B, as the cause of diseases classified elsewhere; B95.61 Methicillin susceptible Staphylococcus aureus infection as the cause of diseases classified elsewhere; R65.20 Severe sepsis without septic shock; Z87.891 Personal history of nicotine dependence; Z98.890 Other specified postprocedural states
CPT/HCPCS: 36415; 36569; 36592; 36600; 71045; 71275; 80048; 80053; 81001; 82805; 82962; 83605; 83735; 83880; 84145; 84484; 85007; 85025; 85379; 87040; 87070; 87077; 87147; 87154; 87186; 87205; 87389; 87449; 87633; 87797; 87899; 93005; 94002; 94640; 94667; 94668; 94799; 96365; 96367; 96375; 99285; 99291; J0330; J0692; J1171; J1650; J1940; J2250; J2543; J2704; J3010; P9045; Q9967

== ENCOUNTER 2024-04-11 12:24 | Emergency (ER) | payer OTHER, MEDICAID, SELFPAY ==
[2024-03-23 15:02] VITALS: BMI 26.5
[2024-03-23 20:01] VITALS: RESP 2
[2024-03-25 19:09] VITALS: PULSE 90; RESP 35; O2SAT 96
[2024-04-11 12:35] VITALS: BP 120/78; PULSE 109; RESP 18; TEMP 37.2; O2SAT 100; BMI 21.9
[2024-04-11 13:27] LABS: Appearance Urine UA CLEAR; Bilirubin Urine UA NEGATIVE (NEGATIVE); Color Urine UA YELLOW; Glucose Urine UA NEGATIVE (Negative); Ketones Urine UA NEGATIVE (NEGATIVE); Leukocyte Esterase Urine UA NEGATIVE (NEGATIVE); Nitrite Urine UA NEGATIVE (Negative); Occult Blood Urine UA NEGATIVE (Negative); Protein Urine UA NEGATIVE (Negative); Specific Gravity Urine UA <=1.005 (1.000-1.035); Urobilinogen Urine UA 0.2 E.U./dL (0.2)
[2024-04-11 13:35] LABS: Add Manual Diff / Slide Review NO; Basophils Absolute Auto 0 /uL (0-100); Basophils Percent Auto 0.6 % (0-2); Eosinophils Absolute Auto 100 /uL (0-450); Eosinophils Percent Auto 1.4 % (2-4); Hematocrit 31.1 % (36-46); Hemoglobin 10.7 g/dL (12.0-16.0); Lymphocytes Absolute Auto 2700 /uL (1100-4500); Lymphocytes Percent Auto 34.8 % (25-40); Mean Corpuscular HGB Conc 34.3 % (30-36); Mean Corpuscular Hemoglobin 31.4 PG (26-34); Mean Corpuscular Volume 91.6 fL (80-100); Monocytes Absolute Auto 500 /uL (0-900); Neutrophils Absolute Auto 4300 /uL (1500-7000); Neutrophils Percent Auto 56.2 % (50-75); Platelet Count 430 X10^3/uL (150-400); Red Cell Distribution Width 15.9 % (11.6-14.8); White Blood Cell Count 7.6 X10^3/uL (4.5-11.0)
[2024-04-11 13:40] LABS: Bacteria Urine Many (>30); Culture Indicated Urine Cult Not Indicated; RBC Urine None Seen (0-5/HPF); Squamous Epithelial Cell Urine 10-30 /HPF (0-5/HPF); Urine Volume 10mL (spun); WBC Urine 0-1/HPF (0-5/HPF)
[2024-04-11 13:40] LABS: Alanine Aminotransferase 26 IU/L (<35); Albumin Globulin Ratio 1.3 (1.0-2.8); Alkaline Phosphatase 101 U/L (38-126); Aspartate Aminotransferase 31 IU/L (14-36); Bilirubin Total 0.6 mg/dL (0.2-1.3); Blood Urea Nitrogen 9 mg/dL (7-17); Calcium 9.2 mg/dL (8.4-10.2); Carbon Dioxide 31 mmol/L (22-32); Chloride 97 mmol/L (98-107); Estimated Glomerular Filt Rate > 60 mL/min (>60); Globulin 3.2 g/dL (1.7-4.1); Glucose 95 mg/dL (70-100); HEMOLYSIS < 15 (0-50); Potassium 3.9 mmol/L (3.4-5.1); Sodium 134 mmol/L (137-145); Total Protein 7.2 g/dL (6.3-8.2)
[2024-04-11 14:03] VITALS: BP 91/56; PULSE 104; RESP 18; TEMP 36.8; O2SAT 98
[2024-04-11 14:40] VITALS: BP 98/56; PULSE 104; RESP 18; O2SAT 99
--- NOTE | 2024-04-11 15:20 | ED.RECABL ---
HPI - Recheck/Abnormal Lab/Rx <Erika Ayala PA-C - Last Filed: 04/11/24 15:59> General Chief Complaint: Recheck/Abnormal Lab/Rx Stated Complaint: low grade fever, was @[facility] for pneumonia Time Seen by Provider: 04/11/24 13:05 Source: patient Mode of arrival: Ambulatory History of Present Illness HPI narrative: 43-year-old female with past medical history ADD, depression, anxiety status post hospitalization for ARDS from pneumonia at [facility] presents to the ED today with 1 day of low-grade fever. Patient states that she felt somewhat achy all over, measured a low-grade temperature of 99.7?. Denies runny nose, cough, sore throat, shortness of breath, chest pain, nausea, vomiting, abdominal pain, dysuria, lightheadedness, dizziness, syncope. Patient was discharged from [facility] on 04/04/2024 after being hospitalized for 10 days for ARDS from pneumonia. Patient states that she was doing well and recovering until this morning. Patient was also diagnosed with a rectocele that was contributing to some urinary retention. Patient was advised to follow-up with urology regarding this. Patient was also discharged on 2 L of home oxygen which she has been using 24 x 7 with no difficulties. Patient is slated to follow-up with her PCP, Dr. Johnson in 2 days. Related Data Previous Rx's Medication Instructions Recorded tamsulosin 0.4 mg capsule (Flomax) 0.8 mg (2 x 0.4 mg) PO DAILY #180 07/23/23 caps fluoxetine 40 mg capsule 40 mg PO QAM #90 caps 12/06/23 gabapentin 300 mg capsule 300 mg PO BEDTIME #90 caps 12/10/23 buprenorphine 12 mg-naloxone 3 mg See Rx Instructions .Route 02/03/24 sublingual film (Suboxone) .COMPLEX #60 film amitriptyline 25 mg tablet 25 mg PO BEDTIME #90 tabs 04/03/24 methylphenidate HCl 27 mg 27 mg PO DAILY #30 tabs 04/10/24 tablet,extended release 24 hr (Concerta) Allergies Allergy/AdvReac Type Severity Reaction Status Date / Time Penicillins Allergy Unknown CHILDHOOD Verified 04/11/24 12:35 amoxicillin Allergy CHILDHOOD Verified 04/11/24 12:35 sulfamethoxazole AdvReac Vaginal Verified 04/11/24 12:35 [From Bactrim] swelling trimethoprim [From Bactrim] AdvReac Vaginal Verified 04/11/24 12:35 swelling Review of Systems <Erika Ayala PA-C - Last Filed: 04/11/24 15:59> Constitutional Constitutional: Reports body ache(s), Denies chills, Denies fatigue, Reports fever(s), Denies frequent falls, Denies lethargy and Denies weakness Eyes Eyes: Denies change in vision, Denies eye discharge, Denies irritation and Denies loss of vision ENT Ears, Nose, Mouth, and Throat: Denies change in voice, Denies dizziness, Denies neck pain, Denies sore throat and Denies throat swelling Cardiovascular Cardiovascular: Denies chest pain, Denies irregular heart rhythm, Denies lightheadedness, Denies palpitations, Denies dyspnea, Denies dyspnea on exertion and Denies orthopnea Respiratory Respiratory: Denies cough, Denies dyspnea, Denies dyspnea on exertion and Denies wheezing Gastrointestinal Gastrointestinal: Denies abdominal pain, Denies change in bowel habits, Denies diarrhea, Denies nausea and Denies vomiting Musculoskeletal Musculoskeletal: Denies neck pain and Denies numbness Integumentary/Breasts Skin/Breast: Denies pruritus, Denies erythema, Denies rash and Denies wounds Neurologic Neurologic: Denies behavioral changes, Denies confusion, Denies dizziness, Denies frequent falls, Denies loss of vision, Denies numbness and Denies weakness Psychiatric Psychiatric: Denies anxiety, Denies behavioral changes, Denies confusion, Denies depression, Denies homicidal ideation and Denies suicidal ideation Endocrine Endocrine: Denies fatigue, Denies flushing and Denies palpitations Hematologic/Lymphatic Hematologic/Lymphatic: Denies easy bruising Allergic/Immunologic Allergic/Immunologic: Denies urticaria, Denies throat swelling and Denies wheezing Patient History <Erika Ayala PA-C - Last Filed: 04/11/24 15:59> Medical History ADD (attention deficit disorder) Closed minimally displaced zone III fracture of sacrum with delayed healing Bilateral knee pain COVID-19 Depression Anxiety Encounter for routine gynecological examination (06/05/22) Encounter for wellness examination in adult (11/07/20) Interstitial cystitis (2019) Seizure disorder (2008) Psoriasis Headache Fractures Chronic back pain Cervical spine disease Ovarian cyst History of urinary incontinence Surgical History [place] teeth extracted Anesthesia History of neck surgery (~2010) History of inguinal hernia repair History of umbilical hernia repair Family History Grandfather History of heart disease Social History household members: spouse and children Smoking Status: Former smoker alcohol intake: former Smoking Status: Former smoker alcohol intake frequency: other Substance Use Type: does not use Exam <Erika Ayala PA-C - Last Filed: 04/11/24 15:59> Narrative Exam Narrative: Const General:?cooperative, healthy appearing and comfortable HENNJ Head:?normal to inspection Ears:?hearing grossly normal bilaterally Nose:?external nose normal Face and sinus:?normal facial exam and sinuses nontender Mouth:?oral mucosae normal Throat:?posterior oropharynx normal Eyes General:?appearance normal, both eyes and all related structures Neck Neck:?normal visual inspection and no lymphadenopathy noted Resp Effort & Inspection:?normal respiratory effort; patient is on 2 L of oxygen Auscultation:?clear to auscultation bilaterally Cardio Rate:?regular rate Rhythm:?regular rhythm Neuro General:?patient alert, patient awake and patient oriented x3 Initial Vital Signs Initial Vital Signs: Vital Signs Temperature 99 F 04/11/24 12:35 Pulse Rate 109 H 04/11/24 12:35 Respiratory Rate 18 04/11/24 12:35 Blood Pressure 120/78 04/11/24 12:35 Pulse Oximetry 100 04/11/24 12:35 Oxygen Delivery Method Room Air 04/11/24 12:35 <Aziza Berry DO - Last Filed: 04/11/24 18:37> Initial Vital Signs Initial Vital Signs: Vital Signs Temperature 99 F 04/11/24 12:35 Pulse Rate 109 H 04/11/24 12:35 Respiratory Rate 18 04/11/24 12:35 Blood Pressure 120/78 04/11/24 12:35 Pulse Oximetry 100 04/11/24 12:35 Oxygen Delivery Method Room Air 04/11/24 12:35 Course <CL Howell Last Filed: 04/11/24 15:59> Orders Ordered: ED Orders 04/11/24 13:04 Urinalysis and Microscopic Stat 04/11/24 13:21 CMP [Comprehensive Metabolic Panel] Stat Complete Blood Count AUTO DIFF Stat Vital Signs Vital signs: Vital Signs - 8 hr 04/11/24 12:35 04/11/24 14:03 04/11/24 14:40 Temperature 99 F 98.2 F Pulse Rate 109 H 104 H 104 H Respiratory Rate 18 18 18 Blood Pressure 120/78 91/56 L 98/56 L Pulse Oximetry 100 98 99 Oxygen Delivery Method Room Air Nasal Cannula Nasal Cannula Oxygen Flow Rate 2 2 <Aziza Berry DO - Last Filed: 04/11/24 18:37> Orders Ordered: ED Orders 04/11/24 13:04 Urinalysis and Microscopic Stat 04/11/24 13:21 CMP [Comprehensive Metabolic Panel] Stat Complete Blood Count AUTO DIFF Stat Vital Signs Vital signs: Vital Signs - 8 hr 04/11/24 12:35 04/11/24 14:03 04/11/24 14:40 Temperature 99 F 98.2 F Pulse Rate 109 H 104 H 104 H Respiratory Rate 18 18 18 Blood Pressure 120/78 91/56 L 98/56 L Pulse Oximetry 100 98 99 Oxygen Delivery Method Room Air Nasal Cannula Nasal Cannula Oxygen Flow Rate 2 2 MDM - Recheck/Abnormal Lab/Rx <Erika Ayala PA-C - Last Filed: 04/11/24 15:59> Lab Data 04/11/24 13:21 04/11/24 13:21 Labs: Lab Results 04/11/24 04/11/24 Range/Units 13:04 13:21 WBC 7.6 (4.5-11.0) X10^3/uL RBC 3.40 L (4.0-5.2) X10^6/uL Hgb 10.7 L (12.0-16.0) g/dL Hct 31.1 L (36-46) % MCV 91.6 (80-100) fL MCH 31.4 (26-34) PG MCHC 34.3 (30-36) % RDW 15.9 H (11.6-14.8) % Plt Count 430 H (150-400) X10^3/uL Neut % (Auto) 56.2 (50-75) % Lymph % (Auto) 34.8 (25-40) % [place] % (Auto) 7.0 (3-14) % Eos % (Auto) 1.4 L (2-4) % Baso % (Auto) 0.6 (0-2) % Neut # (Auto) 4300 (2471-4941) /uL Lymph # (Auto) 2700 (6416-8937) /uL [place] # (Auto) 500 (0-900) /uL Eos # (Auto) 100 (0-450) /uL Baso # (Auto) 0 (0-100) /uL Sodium 134 L (137-145) mmol/L Potassium 3.9 (3.4-5.1) mmol/L Chloride 97 L (98-107) mmol/L Carbon Dioxide 31 (22-32) mmol/L BUN 9 (7-17) mg/dL Creatinine 0.50 L (0.52-1.04) mg/dL Estimated GFR > 60 (>60) mL/min BUN/Creatinine Ratio 18.0 (6-22) Glucose 95 (70-100) mg/dL Calcium 9.2 (8.4-10.2) mg/dL Total Bilirubin 0.6 (0.2-1.3) mg/dL AST 31 (14-36) IU/L ALT 26 (<35) IU/L Alkaline Phosphatase 101 (38-126) U/L Total Protein 7.2 (6.3-8.2) g/dL Albumin 4.0 (3.5-5.0) g/dL Globulin 3.2 (1.7-4.1) g/dL Albumin/Globulin Ratio 1.3 (1.0-2.8) Urine Color Yellow Urine Appearance Clear Urine pH 7.0 (4.5-8.0) Ur Specific [place] <=1.005 (1.000-1.035) Urine Protein Negative (Negative) Urine Glucose (UA) Negative (Negative) g/dL Urine Ketones Negative (NEGATIVE) Urine Occult Blood Negative (Negative) Urine Nitrate Negative (Negative) Urine Bilirubin Negative (NEGATIVE) Urine Urobilinogen 0.2 (0.2) E.U./dL Ur Leukocyte Esterase Negative (NEGATIVE) Urine RBC None seen (0-5/HPF) Urine WBC 0-1/hpf (0-5/HPF) Ur Squamous Epith Cells 10-30 /hpf H D (0-5/HPF) Urine Bacteria Many (>30) H (None) Ur Culture Indicated? Cult not indicated Vol Urine Centrifuged 10ml (spun) MDM Narrative Medical decision making narrative: 43-year-old female with past medical history ADD, depression, anxiety status post hospitalization for ARDS from pneumonia at [facility] presents to the ED today with 1 day of low-grade fever. On physical exam, lungs are clear to auscultation bilaterally. Patient appears well. Urine without UTI. Labs within normal limits. Patient has no URI symptoms. No coughing. Patient is breathing normally with no work of respiration on 2 L of oxygen. Patient does endorse that she exerted herself too much over the last day or 2. Discussed findings with patient. Recommend that she rest more until she can get her strength up. She will see her PCP in 2 days. Strict ED return precautions discussed with patient. She agrees to monitor her symptoms and return to the ED if she feels worse. Medical records reviewed: Yes <Aziza Berry, - Last Filed: 04/11/24 18:37> Lab Data Labs: Lab Results 04/11/24 04/11/24 Range/Units 13:04 13:21 WBC 7.6 (4.5-11.0) X10^3/uL RBC 3.40 L (4.0-5.2) X10^6/uL Hgb 10.7 L (12.0-16.0) g/dL Hct 31.1 L (36-46) % MCV 91.6 (80-100) fL MCH 31.4 (26-34) PG MCHC 34.3 (30-36) % RDW 15.9 H (11.6-14.8) % Plt Count 430 H (150-400) X10^3/uL Neut % (Auto) 56.2 (50-75) % Lymph % (Auto) 34.8 (25-40) % [place] % (Auto) 7.0 (3-14) % Eos % (Auto) 1.4 L (2-4) % Baso % (Auto) 0.6 (0-2) % Neut # (Auto) 4300 (3910-6669) /uL Lymph # (Auto) 2700 (0276-1284) /uL [place] # (Auto) 500 (0-900) /uL Eos # (Auto) 100 (0-450) /uL Baso # (Auto) 0 (0-100) /uL Sodium 134 L (137-145) mmol/L Potassium 3.9 (3.4-5.1) mmol/L Chloride 97 L (98-107) mmol/L Carbon Dioxide 31 (22-32) mmol/L BUN 9 (7-17) mg/dL Creatinine 0.50 L (0.52-1.04) mg/dL Estimated GFR > 60 (>60) mL/min BUN/Creatinine Ratio 18.0 (6-22) Glucose 95 (70-100) mg/dL Calcium 9.2 (8.4-10.2) mg/dL Total Bilirubin 0.6 (0.2-1.3) mg/dL AST 31 (14-36) IU/L ALT 26 (<35) IU/L Alkaline Phosphatase 101 (38-126) U/L Total Protein 7.2 (6.3-8.2) g/dL Albumin 4.0 (3.5-5.0) g/dL Globulin 3.2 (1.7-4.1) g/dL Albumin/Globulin Ratio 1.3 (1.0-2.8) Urine Color Yellow Urine Appearance Clear Urine pH 7.0 (4.5-8.0) Ur Specific [place] <=1.005 (1.000-1.035) Urine Protein Negative (Negative) Urine Glucose (UA) Negative (Negative) g/dL Urine Ketones Negative (NEGATIVE) Urine Occult Blood Negative (Negative) Urine Nitrate Negative (Negative) Urine Bilirubin Negative (NEGATIVE) Urine Urobilinogen 0.2 (0.2) E.U./dL Ur Leukocyte Esterase Negative (NEGATIVE) Urine RBC None seen (0-5/HPF) Urine WBC 0-1/hpf (0-5/HPF) Ur Squamous Epith Cells 10-30 /hpf H D (0-5/HPF) Urine Bacteria Many (>30) H (None) Ur Culture Indicated? Cult not indicated Vol Urine Centrifuged 10ml (spun) Discharge Plan Departure Patient Disposition: Home Clinical Impression: Fever Qualifiers: Fever type: unspecified Qualified Code(s): R50.9 - Fever, unspecified Activity Restrictions/Additional Instructions: You were evaluated in the ED today for a low-grade fever. Your labs and urine were normal. Your physical exam is reassuring for clear lungs. It is recommended that you rest as much as possible to recover to full health. You may take Tylenol for aches and pains and fever. Return to the ED if you have any worsening symptoms, cough, fever, shortness of breath, chest pain. Prescriptions: No Action tamsulosin [Flomax] 0.4 mg capsule 0.8 mg PO DAILY Qty: 180 3RF fluoxetine 40 mg capsule 40 mg PO QAM Qty: 90 3RF gabapentin 300 mg capsule 300 mg PO BEDTIME Qty: 90 3RF Rx Instructions: Take 1 cap at bedtime daily buprenorphine-naloxone [Suboxone] 12-3 mg film See Rx Instructions .ROUTE .COMPLEX Qty: 60 3RF Rx Instructions: Dissolve 2 films under tongue daily; amitriptyline 25 mg tablet 25 mg PO BEDTIME Qty: 90 0RF methylphenidate HCl [Concerta] 27 mg tablet extended release 24hr 27 mg PO DAILY Qty: 30 0RF Referrals: Vicki Johnson DO [Primary Care Provider] - Stand Alone Forms: Patient Portal/API/Survey ED Sign-out <Aziza Berry DO - Last Filed: 04/11/24 18:37> Cosign ED Attending Cosignature Attestation: I was immediately available in the department for consultation.
== END 2024-04-11 14:35 | disposition home or self-care (01) ==
PROVIDERS: Emergency Medicine; Emergency Provider Student in an Organized Health Care Education/Training Program; PCP Family Medicine
DX: R50.9 Fever, unspecified (principal)
CPT/HCPCS: 80053; 81001; 85025; 99283; 99284

== ENCOUNTER → 2024-05-02 17:28 | Outpatient (CLI) | payer OTHER, MEDICAID, SELFPAY ==
[2024-04-21 14:32] VITALS: PULSE 90; RESP 2; RESP 35; O2SAT 96; BMI 26.5
--- NOTE | 2024-05-02 17:30 | DI.RAD.S_ITS ---
PROCEDURE: XR CHEST 2V INDICATIONS: follow-up severe multifocal bilateral PNA TECHNIQUE: 2 views of the chest were acquired. COMPARISON: [facility], CR, XR CHEST 1V, 03/25/2024, 8:59. FINDINGS: Surgical changes and devices: Postsurgical changes are seen in visualized lower cervical spine. Lungs and pleura: Lungs are clear. No pleural effusions or pneumothorax. Mediastinum: Mediastinal contours are normal. Heart size is normal. Bones and chest wall: No suspicious bony abnormalities. Soft tissues appear unremarkable. IMPRESSION: Interval resolution of previously noted bilateral multifocal pneumonia. No focal infiltrate, pleural effusion or pneumothorax is seen on the current study. Dictated by: Sanchez Allison M.D. on 05/03/2024 at 12:07 Approved by: Sanchez Allison M.D. on 05/03/2024 at 12:07
[2024-05-02 18:10] LABS: Add Manual Diff / Slide Review NO; Basophils Absolute Auto 100 /uL (0-100); Basophils Percent Auto 0.8 % (0-2); Eosinophils Absolute Auto 100 /uL (0-450); Eosinophils Percent Auto 0.8 % (2-4); Hematocrit 30.2 % (36-46); Hemoglobin 10.3 g/dL (12.0-16.0); Lymphocytes Absolute Auto 3300 /uL (1100-4500); Lymphocytes Percent Auto 50.6 % (25-40); Mean Corpuscular HGB Conc 33.9 % (30-36); Mean Corpuscular Hemoglobin 31.5 PG (26-34); Mean Corpuscular Volume 92.8 fL (80-100); Monocytes Absolute Auto 400 /uL (0-900); Monocytes Percent Auto 6.6 % (3-14); Neutrophils Absolute Auto 2700 /uL (1500-7000); Neutrophils Percent Auto 41.2 % (50-75); Platelet Count 346 X10^3/uL (150-400); Red Blood Cell Count 3.26 X10^6/uL (4.0-5.2); Red Cell Distribution Width 15.7 % (11.6-14.8); White Blood Cell Count 6.5 X10^3/uL (4.5-11.0)
[2024-05-02 18:30] LABS: Alanine Aminotransferase 15 IU/L (<35); Albumin 3.8 g/dL (3.5-5.0); Albumin Globulin Ratio 1.3 (1.0-2.8); Alkaline Phosphatase 71 U/L (38-126); Aspartate Aminotransferase 26 IU/L (14-36); BUN Creatinine Ratio 18.8 (6-22); Bilirubin Total 0.3 mg/dL (0.2-1.3); Blood Urea Nitrogen 12 mg/dL (7-17); Calcium 9.4 mg/dL (8.4-10.2); Carbon Dioxide 32 mmol/L (22-32); Chloride 101 mmol/L (98-107); Estimated Glomerular Filt Rate > 60 mL/min (>60); Globulin 2.9 g/dL (1.7-4.1); Glucose 104 mg/dL (70-100); HEMOLYSIS < 15 (0-50); Potassium 3.8 mmol/L (3.4-5.1); Sodium 134 mmol/L (137-145); Total Protein 6.7 g/dL (6.3-8.2)
[2024-05-02 18:38] LABS: NT-proBNP (BNP-Adult 18+) 456 pg/mL (<125)
[2024-05-02 18:45] LABS: Free T3, Triiodothyronine Free 3.32 pg/mL (2.77-5.27)
[2024-05-02 18:59] LABS: TSH w/ Reflex to FT4 2.96 uIU/mL (0.47-4.68)
[2024-05-04 00:33] LABS: HIV 1 & 2 Ab/Ag 4th Gen Combo NEGATIVE (NEGATIVE); Hep C Virus Ab w/Reflex Quant NEGATIVE s/c (NEGATIVE)
== END ==
PROVIDERS: Nurse Practitioner; PCP Family Medicine; Referring Provider Family Medicine; Visit Provider Family Medicine
DX: Z00.00 Encounter for general adult medical examination without abnormal findings (principal); J96.01 Acute respiratory failure with hypoxia; J18.9 Pneumonia, unspecified organism; F11.20 Opioid dependence, uncomplicated; E87.6 Hypokalemia; D75.839 Thrombocytosis, unspecified; R79.89 Other specified abnormal findings of blood chemistry; Z09 Encounter for follow-up examination after completed treatment for conditions other than malignant neoplasm; I51.9 Heart disease, unspecified; Z87.09 Personal history of other diseases of the respiratory system; Z78.9 Other specified health status; Z86.79 Personal history of other diseases of the circulatory system
CPT/HCPCS: 36415; 71046; 80053; 83880; 84443; 84481; 85025; 86803; 87389

== ENCOUNTER → 2024-11-29 15:11 | Outpatient (CLI) | payer OTHER, SELFPAY ==
[2024-07-28 16:49] VITALS: PULSE 90; RESP 2; RESP 35; O2SAT 96; BMI 26.5
[2024-11-29 15:46] LABS: Appearance Urine UA SL CLOUDY; Bilirubin Urine UA NEGATIVE (NEGATIVE); Color Urine UA YELLOW; Glucose Urine UA NEGATIVE (Negative); Ketones Urine UA NEGATIVE (NEGATIVE); Leukocyte Esterase Urine UA NEGATIVE (NEGATIVE); Nitrite Urine UA NEGATIVE (Negative); Occult Blood Urine UA TRACE-INTACT (Negative); Protein Urine UA NEGATIVE (Negative)
[2024-11-29 16:02] LABS: Bacteria Urine Moderate (10-30); RBC Urine 1-5/HPF (0-5/HPF); Urine Volume 10mL (spun); WBC Urine 1-5/HPF (0-5/HPF)
[2024-11-29 16:03] LABS: Squamous Epithelial Cell Urine >30 /HPF (0-5/HPF)
[2024-11-29 16:04] LABS: Culture Indicated Urine Cult Not Indicated
== END ==
PROVIDERS: PCP Family Medicine; Visit Provider Physician Assistant
DX: R30.0 Dysuria (principal)
CPT/HCPCS: 81001

== ENCOUNTER 2024-12-13 08:56 | Emergency (ER) | payer OTHER, SELFPAY ==
[2024-07-28 16:49] VITALS: PULSE 90; RESP 2; RESP 35; O2SAT 96; BMI 26.5
[2024-12-13 09:01] VITALS: BP 108/58; PULSE 84; RESP 14; TEMP 36.6; O2SAT 99; BMI 20.1
[2024-12-13 09:56] LABS: Add Manual Diff / Slide Review NO; Hematocrit 35.3 % (36-46); Hemoglobin 12.3 g/dL (12.0-16.0); Lymphocytes Absolute Auto 1700 /uL (1100-4500); Mean Corpuscular HGB Conc 34.8 % (30-36); Mean Corpuscular Hemoglobin 32.6 PG (26-34); Mean Corpuscular Volume 93.6 fL (80-100); Platelet Count 225 X10^3/uL (150-400)
[2024-12-13 10:10] LABS: Alanine Aminotransferase 15 IU/L (<35); Albumin 4.1 g/dL (3.5-5.0); Albumin Globulin Ratio 1.6 (1.0-2.8); Alkaline Phosphatase 51 U/L (38-126); Blood Urea Nitrogen 12 mg/dL (7-17); Calcium 8.9 mg/dL (8.4-10.2); Carbon Dioxide 33 mmol/L (22-32); Chloride 100 mmol/L (98-107); Estimated Glomerular Filt Rate > 60 mL/min (>60); Globulin 2.6 g/dL (1.7-4.1); Glucose 93 mg/dL (70-99); HEMOLYSIS < 15 (0-50); Lipase 50 U/L (23-300); Potassium 3.4 mmol/L (3.4-5.1); Sodium 137 mmol/L (137-145); Total Protein 6.7 g/dL (6.3-8.2)
--- NOTE | 2024-12-13 10:11 | ED.ABDPAIN ---
HPI - Abdominal Pain General Chief Complaint: Abdominal Pain Stated Complaint: Sick to her stomach , x 2weeks Time Seen by Provider: 12/13/24 08:59 Source: patient Mode of arrival: Ambulatory History of Present Illness HPI narrative: 44-year-old female history of seizure disorder, anxiety, depression, ADD on Suboxone presents with left-sided upper abdominal and lower quadrant pain radiating to the back intermittently for the past few weeks but worse in the past 2 days along with nausea but no vomiting, diarrhea, constipation, or urinary complaints. She did have subjective fever but no chills or body aches no vaginal discharge, passing gas and last had a bowel movement a few days ago able to tolerate solids and liquids. Other than what is stated 14 point review of system is negative Related Data Previous Rx's ?Medication ?Instructions ?Recorded fluoxetine 40 mg capsule 40 mg PO QAM #90 caps 12/06/23 tamsulosin 0.4 mg capsule (Flomax) 0.8 mg (2 x 0.4 mg) PO DAILY #180 08/17/24 caps ferrous sulfate 325 mg (65 mg 325 mg PO .every 2 days #60 tabs 08/26/24 iron) tablet gabapentin 300 mg capsule 300 mg PO QAM #90 caps 10/13/24 buprenorphine 12 mg-naloxone 3 mg 1 film sublingual BID #60 film 11/24/24 sublingual film (Suboxone) methylphenidate HCl 27 mg See Rx Instructions .Route 11/24/24 tablet,extended release 24 hr .COMPLEX ADD F98.8 #30 tabs polyethylene glycol 3350 17 17 g PO DAILY #510 grams 12/13/24 gram/dose oral powder (Miralax) Allergies Allergy/AdvReac Type Severity Reaction Status Date / Time Penicillins Allergy Unknown CHILDHOOD Verified 12/13/24 09:01 amoxicillin Allergy CHILDHOOD Verified 12/13/24 09:01 sulfamethoxazole (From AdvReac Vaginal Verified 12/13/24 09:01 Bactrim) swelling trimethoprim (From Bactrim) AdvReac Vaginal Verified 12/13/24 09:01 swelling Review of Systems Review of Systems ROS Unobtainable: All systems reviewed & are unremarkable except as noted in HPI and below Patient History Medical History (Updated 12/13/24 @ 13:07 by Freddy Rachel DO) On supplemental oxygen by nasal cannula Acute hypoxic respiratory failure Community acquired pneumonia Fever ADD (attention deficit disorder) Closed minimally displaced zone III fracture of sacrum with delayed healing Bilateral knee pain COVID-19 Depression Anxiety Encounter for routine gynecological examination (06/05/22) Encounter for wellness examination in adult (11/07/20) Interstitial cystitis (2019) Seizure disorder (2008) Psoriasis Headache Fractures Chronic back pain Cervical spine disease Ovarian cyst History of urinary incontinence Surgical History [place] teeth extracted Anesthesia History of neck surgery (~2010) History of inguinal hernia repair History of umbilical hernia repair Family History Grandfather History of heart disease Social History household members: spouse and children Smoking Status: Current every day smoker alcohol intake: former Smoking Status: Current every day smoker tobacco type: vaping alcohol intake frequency: other Exam Narrative Exam Narrative: GENERAL: [44] year old patient appears stated age. Well-developed patient, in mild distress. HEAD: Atraumatic. Normocephalic. EYES: Pupils equal round and reactive. Extraocular motions intact. No scleral icterus. No injection or drainage. ENT: Nose without bleeding, purulent drainage. Throat without erythema, tonsillar hypertrophy or exudate. Airway patent. NECK: Trachea midline. Non tender CARDIOVASCULAR: Regular rate and rhythm without murmurs, gallops, or rubs. RESPIRATORY: Clear to auscultation. Breath sounds equal bilaterally. No wheezes, rales, or rhonchi. GASTROINTESTINAL: Abdomen soft, LLQ TTP nondistended. EXTREMITIES: No edema or joint tenderness. BACK: Nontender without deformity or crepitance. No flank tenderness. NEURO: AOx3. SKIN: No rash or erythema of visible areas Initial Vital Signs Initial Vital Signs: Vital Signs Temperature 97.8 F 12/13/24 09:01 Pulse Rate 84 12/13/24 09:01 Respiratory Rate 14 12/13/24 09:01 Blood Pressure 108/58 L 12/13/24 09:01 Pulse Oximetry 99 12/13/24 09:01 Oxygen Delivery Method Room Air 12/13/24 09:01 Course Orders Ordered: ED Orders 12/13/24 09:47 Complete Blood Count AUTO DIFF Stat Comprehensive Metabolic Panel Stat Lipase Stat 12/13/24 09:56 Ictotest Urine Stat Urine Microscopic Stat 12/13/24 10:10 CT abdomen pelvis w con Stat Ondansetron HCl (Ondansetron 4 Mg/2 Ml Inj) 4 mg IV NOW PRN PRN Reason: Nausea And Vomiting Ondansetron HCl (Ondansetron 4 Mg Odt) 4 mg PO NOW PRN PRN Reason: Nausea And Vomiting Discontinued Medications Lactated Ringer's (Lactated Ringers) 1,000 mls @ 1,000 mls/hr IV BOLUS ONE Stop: 12/13/24 11:09 Last Admin: 12/13/24 10:19 Dose: 1,000 mls/hr Documented By: CTS Ketorolac Tromethamine (Ketorolac 30 Mg/Ml Vial) 30 mg IV NOW ONE Stop: 12/13/24 10:11 Last Admin: 12/13/24 10:19 Dose: 15 mg Documented By: CARLOS Ondansetron HCl (Ondansetron 4 Mg/2 Ml Inj) 4 mg IV NOW ONE Stop: 12/13/24 10:11 Last Admin: 12/13/24 10:20 Dose: 4 mg Documented By: CTS Vital Signs Vital signs: Vital Signs - 8 hr 12/13/24 09:01 12/13/24 11:50 Temperature 97.8 F Pulse Rate 84 88 Respiratory Rate 14 16 Blood Pressure 108/58 L 104/74 Pulse Oximetry 99 99 Oxygen Delivery Method Room Air Room Air MDM - Abdominal Pain Lab Data 12/13/24 09:47 12/13/24 09:47 Labs: Lab Results 12/13/24 12/13/24 Range/Units 09:47 09:56 WBC 4.0 L (4.5-11.0) X10^3/uL RBC 3.77 L (4.0-5.2) X10^6/uL Hgb 12.3 (12.0-16.0) g/dL Hct 35.3 L (36-46) % MCV 93.6 (80-100) fL MCH 32.6 (26-34) PG MCHC 34.8 (30-36) % RDW 13.3 (11.6-14.8) % Plt Count 225 (150-400) X10^3/uL Neut % (Auto) 44.2 L (50-75) % Lymph % (Auto) 44.0 H (25-40) % [place] % (Auto) 10.1 (3-14) % Eos % (Auto) 1.1 L (2-4) % Baso % (Auto) 0.6 (0-2) % Neut # (Auto) 1700 (9856-4720) /uL Lymph # (Auto) 1700 (2123-9945) /uL [place] # (Auto) 400 (0-900) /uL Eos # (Auto) 0 (0-450) /uL Baso # (Auto) 0 (0-100) /uL Sodium 137 (137-145) mmol/L Potassium 3.4 (3.4-5.1) mmol/L Chloride 100 (98-107) mmol/L Carbon Dioxide 33 H (22-32) mmol/L BUN 12 (7-17) mg/dL Creatinine 0.51 L (0.52-1.04) mg/dL Estimated GFR > 60 (>60) mL/min BUN/Creatinine Ratio 23.5 H (6-22) Glucose 93 (70-99) mg/dL Calcium 8.9 (8.4-10.2) mg/dL Total Bilirubin 0.6 (0.2-1.3) mg/dL AST 22 (14-36) IU/L ALT 15 (<35) IU/L Alkaline Phosphatase 51 (38-126) U/L Total Protein 6.7 (6.3-8.2) g/dL Albumin 4.1 (3.5-5.0) g/dL Globulin 2.6 (1.7-4.1) g/dL Albumin/Globulin Ratio 1.6 (1.0-2.8) Lipase 50 (23-300) U/L Ur Bilirubin Confirm Negative (Negative) Urine RBC 0-1/hpf (0-5/HPF) Urine WBC 0-1/hpf (0-5/HPF) Ur Squamous Epith Cells 5-10 /hpf H (0-5/HPF) Calcium Oxalate Crystal Few H Urine Bacteria None seen (None) Urine Mucus 3+ H (Negative) Ur Culture Indicated? Cult not indicated Vol Urine Centrifuged Low vol <10ml (spun) A Point of care testing: Point of Care Testing Test Results Negative Urine Dip Bedside Urine Glucose Negative Bedside Urine Bilirubin + 1 Bedside Urine Ketone - Negative Urine Specific [place] 1.030 Bedside Urine Occult Blood - Negative Bedside Urine pH 6.0 Bedside Urine Protein +/- 15 Bedside Urine Urobilinogen +/- 1mg Bedside Urine Nitrite - Negative Bedside Urine Leukocytes - Negative Esterase Imaging Data CT scan - abdomen/pelvis: Radiologist's Impression: [address] [address] [address] Scan Report Signed Patient: Helene Mcclure MR#: [id number] : 1980 Acct:[id number] Age/Sex: 44 / F Date of Service: 12/13/24 Loc: ED Accession Number: [id number] Procedure: CT abdomen pelvis w con Ordering Provider: Freddy Rachel D.O. PROCEDURE: CT ABDOMEN PELVIS W CON INDICATIONS: abd pain nausea TECHNIQUE: After the administration of intravenous contrast, axial sections acquired from the lung bases to the pubic symphysis. Coronal and sagittal reformats were performed. For radiation dose reduction, the following was used: automated exposure control, adjustment of mA and/or kV according to patient size. COMPARISON: None. FINDINGS: Image quality: Diagnostic. Lower Chest: No significant findings. ABDOMEN: Liver: No solid mass. Gallbladder: No radiopaque gallstones or wall thickening. Biliary ducts: No biliary dilation. Pancreas: No ductal dilation. Spleen: Size is within normal limits. Adrenal Glands: No adrenal nodules. Kidneys and Ureters: No hydronephrosis. No solid mass. No complex renal cystic lesion which requires follow up. Right renal parenchymal calcification. Stomach and Bowel: Moderate to large volume of stool in the colon. Peritoneum: No abnormal intraperitoneal fluid. No free air. Ventral Wall: No significant ventral hernia. Abdominal Nodes: No retroperitoneal or mesenteric adenopathy by size criteria. Vessels: Aorta and inferior vena cava are normal in size. PELVIS: Pelvic Organs: Retroverted uterus. Bladder: No bladder wall thickening, accounting for underdistention. Pelvic Nodes: No enlarged lymph nodes. Miscellaneous: No inguinal hernias are seen. Bones: Grade 1 anterolisthesis of L4 on L5 secondary to facet hypertrophy. Levoconvex curvature. Trans sacral screws are present. Additional metal screws seen in the right superior pubic ramus. Old healed right inferior pubic ramus fracture. IMPRESSION: 1. No acute abnormality identified in the abdomen or pelvis. 2. Large volume of stool in the colon, correlate for constipation. MDM Narrative Medical decision making narrative: All lab work, vital signs, nurse triage note, medication list, previous ER visits, and all imaging studies reviewed. CT scan showed large volume stool in the colon given lactulose here DC home on MiraLax. WBC 4.0 hematocrit 35.3 lipase normal at 50. Urine showed 5-10 squamous +3 mucus but otherwise was unremarkable. Differential diagnosis constipation pancreatitis diverticulitis kidney stone kidney infection. Discharge Plan Departure Patient Disposition: Home Clinical Impression: Constipation Qualifiers: Constipation type: slow transit constipation Qualified Code(s): K59.01 - Slow transit constipation Instructions: DI for Constipation Activity Restrictions/Additional Instructions: Return with new or worsening symptoms. Keep hydrated. Take medication as directed. Prescriptions: New polyethylene glycol 3350 [Miralax] 17 gram/dose powder 17 g PO DAILY Qty: 510 0RF No Action fluoxetine 40 mg capsule 40 mg PO QAM Qty: 90 3RF tamsulosin [Flomax] 0.4 mg capsule 0.8 mg PO DAILY Qty: 180 0RF ferrous sulfate 325 mg (65 mg iron) tablet 325 mg PO .every 2 days Qty: 60 0RF gabapentin 300 mg capsule 300 mg PO QAM Qty: 90 0RF Rx Instructions: Take 1 cap daily methylphenidate HCl 27 mg tablet extended release 24hr See Rx Instructions .ROUTE .COMPLEX Qty: 30 0RF Rx Instructions: Take 1 tablet by mouth daily; buprenorphine-naloxone [Suboxone] 12-3 mg film 1 film sublingual BID Qty: 60 0RF Referrals: Vicki Johnson DO [Primary Care Provider, Family Practice] Stand Alone Forms: Patient Portal/API
[2024-12-13] MEDS: LACTATED RINGERS 1,000 ML 1000 ML IV (10:19)
[2024-12-13] MEDS: KETOROLAC 30 MG/ML VIAL IV (10:19)
[2024-12-13] MEDS: ONDANSETRON 4 MG/2 ML INJ IV (10:20)
[2024-12-13 11:06] LABS: Culture Indicated Urine Cult Not Indicated; Ictotest Urine Negative (Negative)
[2024-12-13 11:50] VITALS: BP 104/74; PULSE 88; RESP 16; O2SAT 99
[2024-12-13 11:51] VITALS: PULSE 77; O2SAT 97
[2024-12-13] MEDS: LACTULOSE 20 GM/30 ML SOLUTION PO (13:01)
[2024-12-13 13:38] VITALS: PULSE 70; O2SAT 100
[2024-12-13 13:39] VITALS: BP 133/58; PULSE 70; O2SAT 100
== END 2024-12-13 13:52 | disposition home or self-care (01) ==
PROVIDERS: Emergency Provider Family Medicine; PCP Family Medicine
DX: K59.01 Slow transit constipation (principal); R10.12 Left upper quadrant pain
CPT/HCPCS: 36415; 74177; 80053; 81003; 81015; 81025; 83690; 85025; 96374; 96375; 99284; J1885; J2405; Q9967

== ENCOUNTER 2024-12-14 00:04 | Emergency (ER) | payer OTHER, SELFPAY ==
[2024-07-28 16:49] VITALS: PULSE 90; RESP 2; RESP 35; O2SAT 96; BMI 26.5
--- NOTE | 2024-12-14 00:17 | ED.GENADULT ---
HPI - General Adult General Stated complaint: wants to be tested for mrsa was seen earlier Time Seen by Provider: 12/14/24 00:08 History of Present Illness HPI narrative: 44-year-old woman with a history of anxiety, seizure disorder, ADD, presents after complete workup done approximately 12 hours ago with blood tests and CT scans with complaints of upper and lower abdominal pain it was eventually felt to be constipation worried that she has MRSA. She has a small wound on the dorsum of the left wrist that she forgot to point out to the doctor this morning. She has a Band-Aid over this she is worried that she has MRSA and looking for reassurance before she goes on a trip and is supposed to be on a plane in a couple of hours. No fevers, chills. She has been using antibiotic ointment and a small Band-Aid dressing over the wound. States that it has been there for a number of weeks, no drainage, no surrounding redness. She is perseverating over the fact that this is MRSA and she could from this Related Data Previous Rx's ?Medication ?Instructions ?Recorded fluoxetine 40 mg capsule 40 mg PO QAM #90 caps 12/06/23 tamsulosin 0.4 mg capsule (Flomax) 0.8 mg (2 x 0.4 mg) PO DAILY #180 08/17/24 caps ferrous sulfate 325 mg (65 mg 325 mg PO .every 2 days #60 tabs 08/26/24 iron) tablet gabapentin 300 mg capsule 300 mg PO QAM #90 caps 10/13/24 buprenorphine 12 mg-naloxone 3 mg 1 film sublingual BID #60 film 11/24/24 sublingual film (Suboxone) methylphenidate HCl 27 mg See Rx Instructions .Route 11/24/24 tablet,extended release 24 hr .COMPLEX ADD F98.8 #30 tabs polyethylene glycol 3350 17 17 g PO DAILY #510 grams 12/13/24 gram/dose oral powder (Miralax) Allergies Allergy/AdvReac Type Severity Reaction Status Date / Time Penicillins Allergy Unknown CHILDHOOD Verified 12/13/24 09:01 amoxicillin Allergy CHILDHOOD Verified 12/13/24 09:01 sulfamethoxazole (From AdvReac Vaginal Verified 12/13/24 09:01 Bactrim) swelling trimethoprim (From Bactrim) AdvReac Vaginal Verified 12/13/24 09:01 swelling Patient History Medical History (Updated 12/14/24 @ 00:23 by Kalyn Hernandez MD) On supplemental oxygen by nasal cannula Acute hypoxic respiratory failure Community acquired pneumonia Fever ADD (attention deficit disorder) Closed minimally displaced zone III fracture of sacrum with delayed healing Bilateral knee pain COVID-19 Depression Anxiety Encounter for routine gynecological examination (06/05/22) Encounter for wellness examination in adult (11/07/20) Interstitial cystitis (2019) Seizure disorder (2008) Psoriasis Headache Fractures Chronic back pain Cervical spine disease Ovarian cyst History of urinary incontinence Surgical History [place] teeth extracted Anesthesia History of neck surgery (~2010) History of inguinal hernia repair History of umbilical hernia repair Family History Grandfather History of heart disease Social History household members: spouse and children alcohol intake: former tobacco type: vaping alcohol intake frequency: other Exam Narrative Exam Narrative: General: Alert, in no acute distress Respiratory: Able to speak in full sentences, no obvious respiratory distress Skin: No obvious rashes, warm and dry Neurologic: Grossly intact no obvious asymmetries or abnormalities Psych: Anxious, cooperative Extremity: Small superficial wound in the dorsum of the left wrist, approximately half a cm in diameter, edges are not raised, there is no bleeding, there is no discharge and no surrounding erythema. Medical Decision Making MDM Narrative Medical decision making narrative: 44-year-old woman with significant anxiety, planning on leaving for a trip within the next few hours. Was in the emergency department with full workup including CT scanning done diagnosed with constipation still feels she ?just isn't well. Perseverating regarding this small wound on the back of her left wrist and comes in for reassurance. The wound is evaluated, again reviewed her labs and studies for from this morning reassurance is given. Bacitracin and a Band-Aid placed over the wound and suggested to her that it was safe to go home. Discussed the fact that even if it were MRSA we would still recommend antibiotic ointment and a Band-Aid without any additional testing at this time. There was no suggestion of cellulitis or deeper abscess. She is safe for discharge Discharge Plan Departure Patient Disposition: Home Clinical Impression: Open wound of skin Activity Restrictions/Additional Instructions: I am sorry that this small wound on the back of your left wrist has been causing you so much anxiety. There was no evidence of deeper infection, abscess, cellulitis and no reason to test this for MRSA. Even if it were positive, recommendation would still be to use antibiotic ointment and a Band-Aid until healed. You do not need oral antibiotics. I did look at your blood work and CT scan from this morning. There is no indication for additional blood work today. You can be very reassured that it is safe to go on the trip that you have planned. Please continue to use topical antibiotic ointment and a dressing over the wound, try not to pick or rub at it. Prescriptions: No Action fluoxetine 40 mg capsule 40 mg PO QAM Qty: 90 3RF tamsulosin [Flomax] 0.4 mg capsule 0.8 mg PO DAILY Qty: 180 0RF ferrous sulfate 325 mg (65 mg iron) tablet 325 mg PO .every 2 days Qty: 60 0RF gabapentin 300 mg capsule 300 mg PO QAM Qty: 90 0RF Rx Instructions: Take 1 cap daily methylphenidate HCl 27 mg tablet extended release 24hr See Rx Instructions .ROUTE .COMPLEX Qty: 30 0RF Rx Instructions: Take 1 tablet by mouth daily; buprenorphine-naloxone [Suboxone] 12-3 mg film 1 film sublingual BID Qty: 60 0RF polyethylene glycol 3350 [Miralax] 17 gram/dose powder 17 g PO DAILY Qty: 510 0RF Referrals: Vicki Johnson DO [Primary Care Provider, Family Practice] Stand Alone Forms: Patient Portal/API
[2024-12-14 00:24] VITALS: BP 154/79; PULSE 89; RESP 16; TEMP 36.6; O2SAT 100; BMI 19.7
[2024-12-14] MEDS: BACITRACIN OINT 0.9 GM PCKT 1 APPLIC TOP (00:27)
== END 2024-12-14 00:41 | disposition home or self-care (01) ==
PROVIDERS: Emergency Provider Emergency Medicine; PCP Family Medicine
DX: S61.502A Unspecified open wound of left wrist, initial encounter (principal); X58.XXXA Exposure to other specified factors, initial encounter
CPT/HCPCS: 99282

== ENCOUNTER → 2025-02-15 14:08 | Outpatient (CLI) | payer OTHER, SELFPAY ==
[2024-07-28 16:49] VITALS: PULSE 90; RESP 2; RESP 35; O2SAT 96; BMI 26.5
[2025-02-15 14:25] LABS: Add Manual Diff / Slide Review NO; Hematocrit 37.6 % (36-46); Hemoglobin 12.5 g/dL (12.0-16.0); Lymphocytes Absolute Auto 1100 /uL (1100-4500); Mean Corpuscular HGB Conc 33.3 % (30-36); Mean Corpuscular Hemoglobin 31.4 PG (26-34); Mean Corpuscular Volume 94.3 fL (80-100); Platelet Count 298 X10^3/uL (150-400)
[2025-02-15 14:51] LABS: Alanine Aminotransferase 16 IU/L (<35); Albumin 4.4 g/dL (3.5-5.0); Albumin Globulin Ratio 1.6 (1.0-2.8); Alkaline Phosphatase 54 U/L (38-126); Blood Urea Nitrogen 18 mg/dL (7-17); Calcium 9.5 mg/dL (8.4-10.2); Carbon Dioxide 31 mmol/L (22-32); Chloride 100 mmol/L (98-107); Estimated Glomerular Filt Rate > 60 mL/min (>60); Globulin 2.7 g/dL (1.7-4.1); Glucose 103 mg/dL (70-99); HEMOLYSIS < 15 (0-50); Potassium 5.0 mmol/L (3.4-5.1); Sodium 137 mmol/L (137-145); Total Protein 7.1 g/dL (6.3-8.2)
[2025-02-15 15:23] LABS: TSH w/ Reflex to FT4 0.93 uIU/mL (0.47-4.68)
== END ==
PROVIDERS: PCP Family Medicine; Referring Provider Family Medicine; Visit Provider Family Medicine
DX: R63.4 Abnormal weight loss (principal); Z79.899 Other long term (current) drug therapy
CPT/HCPCS: 36415; 80053; 84443; 85025; 85651

== ENCOUNTER → 2025-02-17 20:36 | Outpatient (CLI) | payer OTHER, SELFPAY ==
[2025-02-16 09:31] VITALS: PULSE 90; RESP 2; RESP 35; O2SAT 96; BMI 26.5
--- NOTE | 2025-02-17 20:37 | DI.RAD.S_ITS ---
PROCEDURE: XR CHEST 2V INDICATIONS: unintentional weight loss TECHNIQUE: 2 views of the chest were acquired. COMPARISON: [facility], CR, XR CHEST 2V, 05/02/2024, 17:38. FINDINGS: Surgical changes and devices: None. Lungs and pleura: Lungs are clear. No pleural effusions or pneumothorax. Mediastinum: Mediastinal contours are normal. Heart size is normal. Bones and chest wall: No suspicious bony abnormalities. Soft tissues appear unremarkable. IMPRESSION: No acute cardiopulmonary abnormality is seen. Dictated by: Richard Valencia M.D. on 02/18/2025 at 10:12 Approved by: Richard Valencia M.D. on 02/18/2025 at 10:12
== END ==
LOC: RAD 20:37
PROVIDERS: PCP Family Medicine; Referring Provider Family Medicine; Visit Provider Family Medicine
DX: R63.4 Abnormal weight loss (principal)
CPT/HCPCS: 71046

== ENCOUNTER → 2025-02-27 12:15 | Outpatient (CLI) | payer OTHER, SELFPAY ==
[2025-02-16 09:31] VITALS: PULSE 90; RESP 2; RESP 35; O2SAT 96; BMI 26.5
[2025-02-27 13:19] LABS: Appearance Urine UA CLEAR; Bilirubin Urine UA NEGATIVE (NEGATIVE); Color Urine UA YELLOW; Glucose Urine UA NEGATIVE (Negative); Ketones Urine UA NEGATIVE (NEGATIVE); Leukocyte Esterase Urine UA NEGATIVE (NEGATIVE); Nitrite Urine UA NEGATIVE (Negative); Occult Blood Urine UA TRACE-INTACT (Negative); Protein Urine UA NEGATIVE (Negative); Specific Gravity Urine UA 1.010 (1.000-1.035); Urobilinogen Urine UA 1.0 E.U./dL (0.2)
[2025-02-27 13:20] LABS: pH Urine UA 8.5 (4.5-8.0)
[2025-02-27 13:50] LABS: Culture Indicated Urine Cult Not Indicated
== END ==
PROVIDERS: PCP Family Medicine; Visit Provider Obstetrics & Gynecology Gynecology
DX: N81.6 Rectocele (principal); R31.0 Gross hematuria; N32.81 Overactive bladder; N93.0 Postcoital and contact bleeding
CPT/HCPCS: 51701; 81001; 99215

== ENCOUNTER 2025-03-05 18:38 | Emergency (ER) | payer OTHER, SELFPAY ==
[2025-02-16 09:31] VITALS: PULSE 90; RESP 2; RESP 35; O2SAT 96; BMI 26.5
[2025-03-05 18:55] VITALS: BP 138/71; PULSE 76; RESP 16; TEMP 36.6; O2SAT 99; BMI 19.2
--- NOTE | 2025-03-05 19:13 | DI.RAD.S_ITS ---
PROCEDURE: XR CHEST 1V INDICATIONS: Chest Pain TECHNIQUE: One view of the chest was acquired. COMPARISON: [facility], CR, XR CHEST 1V, 03/25/2024, 8:59. [facility], CR, XR CHEST 1V, 03/24/2024, 5:22. [facility], CR, XR CHEST 2V, 02/17/2025, 20:36. FINDINGS: Surgical changes and devices: None. Lungs and pleura: Lungs are clear. No pleural effusions or pneumothorax. Mediastinum: Mediastinal contours appear normal. Heart size is normal. Bones and chest wall: No suspicious bony lesions. Overlying soft tissues appear unremarkable. IMPRESSION: No acute cardiopulmonary abnormality is seen. Approved by: Avni Enriquez M.D. on 03/05/2025 at 20:29
--- NOTE | 2025-03-05 19:18 | EKG_ITS ---
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
--- NOTE | 2025-03-05 19:49 | ED.CHESTPAIN ---
HPI - Chest Pain General Chief Complaint: Chest Pain Stated Complaint: intermittent chest pain getting worse Time Seen by Provider: 03/05/25 19:48 History of Present Illness HPI narrative: Patient is a 44-year-old female history of chronic pain on Suboxone, works as a [employer] by [employer], presenting today with chest pain. She has had some ongoing chest discomfort she sometimes notices it when she takes a deep breath, she has noted increasing shortness of breath with exertion. She has had some increasing chest pain it has gotten worse over the last day or so. She thought that last night she should have come into the emergency department but held out till today. She has an oxygen concentrator at home she was admitted 1 year ago here and then transferred to the [facility] where she had multifocal pneumonia hypoxic respiratory failure strep bacteremia and anemia so she has an oxygen concentrator at home as needed. She use the oxygen concentrated just for comfort and she said it helped. Today she just wanted to come get checked out but had some ongoing chest discomfort. No fever or chills. She continues to vape often on but says she quit again recently. Related Data Home Medications ?Medication ?Instructions ?Recorded ?Confirmed tamsulosin 0.4 mg capsule (Flomax) 0.8 mg PO DAILY PRN 02/15/25 02/27/25 Held on 02/27/25. Instructions: Trial off of it Previous Rx's ?Medication ?Instructions ?Recorded gabapentin 300 mg capsule 300 mg PO QAM #90 caps 10/13/24 polyethylene glycol 3350 17 17 g PO DAILY #510 grams 12/13/24 gram/dose oral powder (Miralax) fluoxetine 40 mg capsule 40 mg PO QAM #90 caps 12/27/24 ferrous sulfate 325 mg (65 mg 325 mg PO .every 2 days #60 tabs 02/15/25 iron) tablet methylphenidate HCl 27 mg 27 mg PO QAM ADD F98.8 #30 tabs 02/23/25 tablet,extended release 24 hr oxybutynin chloride 10 mg 10 mg PO DAILY #30 tabs 02/27/25 tablet,extended release 24 hr buprenorphine 12 mg-naloxone 3 mg 1 film sublingual BID #60 film 02/28/25 sublingual film (Suboxone) Allergies Allergy/AdvReac Type Severity Reaction Status Date / Time Penicillins Allergy Unknown CHILDHOOD Verified 02/27/25 11:15 amoxicillin Allergy CHILDHOOD Verified 02/27/25 11:15 sulfamethoxazole (From AdvReac Vaginal Verified 02/27/25 11:15 Bactrim) swelling trimethoprim (From Bactrim) AdvReac Vaginal Verified 02/27/25 11:15 swelling Patient History Medical History Postcoital bleeding OAB (overactive bladder) Rectocele On supplemental oxygen by nasal cannula Acute hypoxic respiratory failure Community acquired pneumonia Fever ADD (attention deficit disorder) Closed minimally displaced zone III fracture of sacrum with delayed healing Bilateral knee pain COVID-19 Depression Anxiety Encounter for routine gynecological examination (06/05/22) Encounter for wellness examination in adult (11/07/20) Interstitial cystitis (2019) Seizure disorder (2008) Psoriasis Headache Fractures Chronic back pain Cervical spine disease Ovarian cyst History of urinary incontinence Surgical History [place] teeth extracted Anesthesia History of neck surgery (~2010) History of inguinal hernia repair History of umbilical hernia repair Family History Grandfather History of heart disease Social History household members: spouse and children alcohol intake: former tobacco type: vaping alcohol intake frequency: other Exam Initial Vital Signs Initial Vital Signs: Vital Signs Temperature 97.8 F 03/05/25 18:55 Pulse Rate 76 03/05/25 18:55 Respiratory Rate 16 03/05/25 18:55 Blood Pressure 138/71 03/05/25 18:55 Pulse Oximetry 99 03/05/25 18:55 Oxygen Delivery Method Room Air 03/05/25 18:55 GENERAL: Alert anxious 44-year-old female in [no acute] distress. HEENT: Head atraumatic,EOMI, pupils reactive, face symmetric, [moist] mucous membranes CARDIOVASCULAR: Regular rate and rhythm without murmurs, rubs or gallops. RESPIRATORY: Breath sounds equal bilaterally, no wheezes rales or rhonchi. ABDOMEN: Soft, nontender. Normoactive bowel sounds all 4 quadrants. No guarding or rebound. EXTREMITIES: Normal range of motion, no clubbing or edema. Neurovascularly intact NEUROLOGICAL: Alert and oriented x4.Normal gait and speech. Cranial nerves II through XII grossly intact. SKIN: Warm, dry, no laceration, no petechiae, no rashes or lesions. Scores HEART Score Heart Score history: Slightly Suspicious Heart Score EKG: Normal Heart Score Age: 45-64 years old Heart Score risk factors: 1-2 risk factors Heart Score troponin: < or = to normal limit Heart Score Total: 2 Course Orders Ordered: ED Orders 03/05/25 19:13 XR chest 1V Stat EKG-12 Lead Stat 03/05/25 19:34 D Dimer Stat 03/05/25 19:43 Complete Blood Count AUTO DIFF Stat Comprehensive Metabolic Panel Stat Lipase Stat Magnesium Stat NT-proBNP (BNP-Adult 18+) Stat PTT Partial Thromboplastin Keegan Stat Prothrombin Time INR Stat Troponin & CK Cardiac Panel Stat 03/05/25 21:04 Troponin I Stat Discontinued Medications Aspirin (Aspirin 81 Mg Chew Tab) 324 mg PO NOW ONE Stop: 03/05/25 19:14 Last Admin: 03/05/25 19:51 Dose: 324 mg Documented By: Vital Signs Vital signs: Vital Signs - 8 hr 03/05/25 18:55 03/05/25 20:59 03/05/25 21:00 Temperature 97.8 F Pulse Rate 76 68 Respiratory Rate 16 15 Blood Pressure 138/71 110/64 Pulse Oximetry 99 97 Oxygen Delivery Method Room Air 03/05/25 21:00 03/05/25 21:30 03/05/25 21:30 Temperature Pulse Rate 68 65 Respiratory Rate 12 18 Blood Pressure 96/61 Pulse Oximetry 98 97 Oxygen Delivery Method 03/05/25 22:00 Temperature Pulse Rate 71 Respiratory Rate 24 Blood Pressure Pulse Oximetry 97 Oxygen Delivery Method MDM - Chest Pain Lab Data 03/05/25 19:43 03/05/25 19:43 Labs: Lab Results 03/05/25 03/05/25 03/05/25 Range/Units 19:34 19:43 21:04 WBC 4.9 (4.5-11.0) X10^3/uL RBC 4.13 (4.0-5.2) X10^6/uL Hgb 13.0 (12.0-16.0) g/dL Hct 37.9 (36-46) % MCV 91.7 (80-100) fL MCH 31.5 (26-34) PG MCHC 34.4 (30-36) % RDW 12.8 (11.6-14.8) % Plt Count 268 (150-400) X10^3/uL Neut % (Auto) 45.8 L (50-75) % Lymph % (Auto) 44.8 H (25-40) % [place] % (Auto) 7.8 (3-14) % Eos % (Auto) 1.2 L (2-4) % Baso % (Auto) 0.4 (0-2) % Neut # (Auto) 2200 (4868-3282) /uL Lymph # (Auto) 2200 (8750-8502) /uL [place] # (Auto) 400 (0-900) /uL Eos # (Auto) 100 (0-450) /uL Baso # (Auto) 0 (0-100) /uL PT 12.1 (9.4-12.5) SECONDS INR 1.1 (0.9-1.3) APTT 30 (25.1-36.5) SECONDS D-Dimer 293 (<500) ng/ml Sodium 137 (137-145) mmol/L Potassium 3.7 (3.4-5.1) mmol/L Chloride 102 (98-107) mmol/L Carbon Dioxide 30 (22-32) mmol/L BUN 20 H (7-17) mg/dL Creatinine 0.56 (0.52-1.04) mg/dL Estimated GFR > 60 (>60) mL/min BUN/Creatinine Ratio 35.7 H (6-22) Glucose 70 (70-99) mg/dL Calcium 9.7 (8.4-10.2) mg/dL Magnesium 2.0 (1.6-2.3) mg/dL Total Bilirubin 0.3 (0.2-1.3) mg/dL AST 23 (14-36) IU/L ALT 17 (<35) IU/L Alkaline Phosphatase 54 (38-126) U/L Total Creatine Kinase 52 (30-135) U/L Troponin I < 0.012 < 0.012 (0.01-0.034) ng/mL NT-Pro-B Natriuret Pep 102 (<125) pg/mL Total Protein 7.3 (6.3-8.2) g/dL Albumin 4.4 (3.5-5.0) g/dL Globulin 2.9 (1.7-4.1) g/dL Albumin/Globulin Ratio 1.5 (1.0-2.8) Lipase 54 (23-300) U/L Imaging Data Chest x-ray: Radiologist's Impression: PROCEDURE: XR CHEST 1V INDICATIONS: Chest Pain TECHNIQUE: One view of the chest was acquired. COMPARISON: [facility], CR, XR CHEST 1V, 03/25/2024, 8:59. [facility], CR, XR CHEST 1V, 03/24/2024, 5:22. [facility], CR, XR CHEST 2V, 02/17/2025, 20:36. FINDINGS: Surgical changes and devices: None. Lungs and pleura: Lungs are clear. No pleural effusions or pneumothorax. Mediastinum: Mediastinal contours appear normal. Heart size is normal. Bones and chest wall: No suspicious bony lesions. Overlying soft tissues appear unremarkable. IMPRESSION: No acute cardiopulmonary abnormality is seen. Approved by: Avni Enriquez M.D. on 03/05/2025 at 20:29 ECG Data Attestation: I personally reviewed and interpreted this ECG as follows: Prior ECG tracings: available for review Interpretation: Normal sinus rhythm rate 68 MT interval 114 QRS 82 QTC of [address] changes no T-wave inversions MDM Narrative Medical decision making narrative: MDM CC: Chest pain Complicating co-morbidities: Smoking, vaping, chronic pain Data collected from: [ ] Medical records reviewed: Hospitalization from [place] [id number] reviewed Differential considered: Acute coronary syndrome pulmonary embolism pneumonia viral illness Exam documented above, pertinent findings include: Alert anxious well-appearing 44-year-old female breath sounds equal bilaterally no murmurs no lower extremity edema Lab Test results independently reviewed as above. Pertinent findings: Troponin negative x2 D-dimer 293 unlikely to be pulmonary embolus CBC no leukocytosis WBC is 4.9 no anemia CMP no electrolyte abnormality no JANINE creatinine Independently reviewed EKG as above Normal sinus rhythm no ischemia Imaging studies independently reviewed: No pneumonia no pneumothorax Consultations: Non Treatments: None Re-evaluations: Patient has had no recurrent of pain Discussion: Patient 44-year-old female presenting today with atypical chest pain. She has 2- troponins EKGs does not show any ischemia D-dimer is negative unlikely to be pulmonary embolism. She has no evidence of infection. She was hospitalized 1 year ago and intubated with multi focal pneumonia and sepsis. She is not hypoxic here vitals are stable. She has a low heart score of 2. Discharge Plan Departure Patient Disposition: Home Clinical Impression: Atypical chest pain Instructions: DI for Atypical Chest Pain Activity Restrictions/Additional Instructions: *You have been diagnosed with atypical chest pain *What to do: At this time blood work x-ray and EKGs overall reassuring. No evidence of infection *Continue to take medications as directed *Follow up with your primary care provider in 2-3 days or call [phone] *Return to ER if you should have increasing chest pain shortness of breath weakness [or] any new, worsening or concerning symptoms Prescriptions: No Action gabapentin 300 mg capsule 300 mg PO QAM Qty: 90 0RF Rx Instructions: Take 1 cap daily fluoxetine 40 mg capsule 40 mg PO QAM Qty: 90 3RF methylphenidate HCl 27 mg tablet extended release 24hr 27 mg PO QAM Qty: 30 0RF buprenorphine-naloxone [Suboxone] 12-3 mg film 1 film sublingual BID Qty: 60 0RF tamsulosin [Flomax] 0.4 mg capsule 0.8 mg PO DAILY PRN ferrous sulfate 325 mg (65 mg iron) tablet 325 mg PO .every 2 days Qty: 60 0RF polyethylene glycol 3350 [Miralax] 17 gram/dose powder 17 g PO DAILY Qty: 510 0RF oxybutynin chloride 10 mg tablet extended release 24hr 10 mg PO DAILY Qty: 30 6RF Referrals: Vicki Johnson DO [Primary Care Provider, Family Practice] Stand Alone Forms: Patient Portal/API
[2025-03-05] MEDS: ASPIRIN 81 MG CHEW TAB 324 MG PO (19:51)
[2025-03-05 19:53] LABS: Add Manual Diff / Slide Review NO; Hematocrit 37.9 % (36-46); Hemoglobin 13.0 g/dL (12.0-16.0); Lymphocytes Absolute Auto 2200 /uL (1100-4500); Mean Corpuscular HGB Conc 34.4 % (30-36); Mean Corpuscular Hemoglobin 31.5 PG (26-34); Mean Corpuscular Volume 91.7 fL (80-100); Platelet Count 268 X10^3/uL (150-400)
[2025-03-05 20:02] LABS: Alanine Aminotransferase 17 IU/L (<35); Albumin 4.4 g/dL (3.5-5.0); Albumin Globulin Ratio 1.5 (1.0-2.8); Alkaline Phosphatase 54 U/L (38-126); Blood Urea Nitrogen 20 mg/dL (7-17); Calcium 9.7 mg/dL (8.4-10.2); Carbon Dioxide 30 mmol/L (22-32); Chloride 102 mmol/L (98-107); Creatine Kinase 52 U/L (30-135); Estimated Glomerular Filt Rate > 60 mL/min (>60); Globulin 2.9 g/dL (1.7-4.1); Glucose 70 mg/dL (70-99); HEMOLYSIS 20 (0-50); Lipase 54 U/L (23-300); Magnesium 2.0 mg/dL (1.6-2.3); Potassium 3.7 mmol/L (3.4-5.1); Sodium 137 mmol/L (137-145); Total Protein 7.3 g/dL (6.3-8.2)
[2025-03-05 20:13] LABS: NT-proBNP (BNP-Adult 18+) 102 pg/mL (<125); Troponin I < 0.012 ng/mL (0.01-0.034)
[2025-03-05 20:16] LABS: INR 1.1 (0.9-1.3); Prothrombin Time 12.1 SECONDS (9.4-12.5)
[2025-03-05 20:19] LABS: PTT Partial Thromboplastin Tim 30 SECONDS (25.1-36.5)
[2025-03-05 20:59] VITALS: PULSE 68; RESP 15; O2SAT 97
[2025-03-05 21:00] VITALS: BP 110/64; PULSE 68; RESP 12; O2SAT 98
[2025-03-05 21:30] VITALS: BP 96/61; PULSE 65; RESP 18; O2SAT 97
[2025-03-05 21:33] LABS: Troponin I < 0.012 ng/mL (0.01-0.034)
[2025-03-05 22:00] VITALS: PULSE 71; RESP 24; O2SAT 97
== END 2025-03-05 22:09 | disposition home or self-care (01) ==
PROVIDERS: Emergency Provider Emergency Medicine; PCP Family Medicine
DX: R07.89 Other chest pain (principal); R06.02 Shortness of breath
CPT/HCPCS: 36415; 71045; 80053; 82550; 83690; 83735; 83880; 84484; 85025; 85379; 85610; 85730; 93005; 99284